=== PATIENT | female | born 1940 | race Caucasian/White ===

== ENCOUNTER 2020-06-16 06:20 | Outpatient (REF) | payer MEDICARE, SELFPAY ==
--- NOTE | 2020-06-16 06:49 | XR_ITS ---
EXAMINATION: CHEST AND RIGHT RIBS. CLINICAL INFORMATION: Chest pain. Right rib pain. COMPARISON: Chest 08/28/2014 TECHNIQUE: Chest 2 views. Right RIBS 3 views. FINDINGS: Chest: Both lungs are fairly well-expanded with platelike atelectasis left midlung. Rest of the lungs are clear. The heart size and pulmonary vascularity is normal. No gross bony abnormality seen. There is right rotator cuff postsurgical changes. XR/XR ribs RT 2V IMPRESSION: Platelike atelectasis left midlung.
--- NOTE | 2020-06-16 06:49 | XR_ITS ---
EXAMINATION: CHEST AND RIGHT RIBS. CLINICAL INFORMATION: Chest pain. Right rib pain. COMPARISON: Chest 08/28/2014 TECHNIQUE: Chest 2 views. Right RIBS 3 views. FINDINGS: Chest: Both lungs are fairly well-expanded with platelike atelectasis left midlung. Rest of the lungs are clear. The heart size and pulmonary vascularity is normal. No gross bony abnormality seen. There is right rotator cuff postsurgical changes. XR/XR chest 2V IMPRESSION: Platelike atelectasis left midlung.
[2020-06-16 07:10] LABS: Basophils Absolute Auto 0.1 X10*3/uL (0.0-0.2); Basophils Percent Auto 0.8 % (0-2); Eosinophils Absolute Auto 0.2 X10*3/uL (0.0-0.4); Eosinophils Percent Auto 2.5 % (0-4); Hematocrit 39.2 % (37-47); Hemoglobin 12.5 g/dl (12.0-16.0); Imm Gran Abs Auto 0.01 X10*3/uL (0.00-0.03); Imm Gran Pct Auto 0.1 % (0.0-0.4); Lymphocytes Absolute Auto 2.8 X10*3/uL (1.2-4.9); Lymphocytes Percent Auto 34.6 % (20-40); Mean Corpuscular HGB Conc 31.9 g/dl (31.0-35.0); Mean Corpuscular Hemoglobin 31.2 pg (27.0-33.0); Mean Corpuscular Volume 97.8 fL (80-98); Mean Platelet Volume 11.6 fL (9.4-12.3); Monocytes Absolute Auto 0.7 X10*3/uL (0.1-1.2); Monocytes Percent Auto 8.6 % (2-11); Neutrophils Absolute Auto 4.3 X10*3/uL (2.0-8.3); Neutrophils Percent Auto 53.4 % (45-73); Platelet Count 235 X10*3/uL (160-400); Red Blood Count 4.01 X10*6/uL (4.20-5.50); Red Cell Distribution Width 12.2 % (11.0-16.0)
[2020-06-16 07:13] LABS: MANUAL DIFF FLAG NO
[2020-06-16 07:33] LABS: Alanine Aminotransferase 20 U/L (0-31); Albumin Level 4.3 g/dL (3.5-5.0); Alkaline Phosphatase 61 U/L (39-117); Anion Gap 12 (12-20); Aspartate Amino Transferase 21 U/L (5-31); Bilirubin Total 0.7 mg/dL (0.0-1.0); Blood Urea Nitrogen 23 mg/dL (9-16); Calcium 9.2 mg/dL (8.4-10.2); Carbon Dioxide 30 mmol/L (22-29); Chloride 106 mmol/L (96-108); Cholesterol 190 mg/dL; Estimated Glomerular Filt Rate 56; Glucose Fasting 94 mg/dL (60-99); HDL Cholesterol 70 mg/dL; LDL Cholesterol Calculated 96 mg/dl; Potassium 4.8 mmol/l (3.3-5.1); Sodium 143 mmol/L (135-145); Total Protein 7.1 g/dL (6.5-8.0); Triglycerides 120 mg/dL
[2020-06-16 07:57] LABS: Thyroid Stimulating Hormone 1.29 uIU/mL (0.32-4.0)
== END 2020-06-16 06:21 | disposition home or self-care (01) ==
LOC: HO.XRAY 06:20
PROVIDERS: Visit Provider Internal Medicine
DX: R10.9 Unspecified abdominal pain (principal)
CPT/HCPCS: 36415; 71046; 71100; 80053; 80061; 84443; 85025

== ENCOUNTER → 2020-07-03 12:58 | Outpatient (BNVA) | payer MEDICARE, SELFPAY | PROVIDERS: PCP Family Medicine; Visit Provider Internal Medicine Cardiovascular Disease | DX: R06.02 Shortness of breath (principal); I48.0 Paroxysmal atrial fibrillation; I35.0 Nonrheumatic aortic (valve) stenosis | CPT/HCPCS: 93005; 99212 ==

== ENCOUNTER → 2020-08-06 09:24 | Outpatient (REF) | payer MEDICARE, SELFPAY ==
--- NOTE | 2020-08-06 09:27 | CA_ITS ---
Transthoracic Echocardiogram Patient (Last, First, Middle): Mandy Ayala T Gender: Female Date of : 1940 Age: 80 Procedure Date: 08/06/2020 Procedure Type: Transthoracic Echocardiogram Location: OP Height: 160.02 cm Weight: 79.38 kg BSA: 1.83 m2 Heart Rate: bpm BP: 130 / 80 mmHg District Gauger: ANA MARIA Referring MD: Glen Jewell MD Symptoms: R06.02 - Shortness of breath Study Quality: Fair ECG Rhythm: Sinus Conclusions: - The left ventricular systolic function is normal. The visually estimated ejection fraction is between 65-70%. - There is moderate aortic valve stenosis. - There is mild mitral annular calcification. Findings Left Ventricle Normal left ventricular cavity size. There is mildly increased left ventricular wall thickness. The left ventricular systolic function is normal. The visually estimated ejection fraction is between 65-70%. There is no evidence of regional wall motion abnormalities. Diastolic function is indeterminate on the basis of available data. E/E prime ratio is >15, consistent with elevated filling pressures. Right Ventricle Normal right ventricular cavity size and systolic function. Atria Both atria are normal in size. Aortic Valve There is moderate calcification of the aortic valve. There is moderate aortic valve stenosis. The peak aortic velocity is 3.68 m/s with a calculated peak gradient of 54 mmHg. The mean gradient is 29 mmHg. The aortic valve area is 1.03 cm2. There is mild aortic valve regurgitation. Mitral Valve There is mild mitral annular calcification. There is trace mitral valve regurgitation. There is no mitral valve stenosis. Pulmonic Valve The pulmonic valve was not well visualized. Tricuspid Valve There is mild tricuspid valve regurgitation. The pulmonary artery systolic pressure is normal. Great Vessels The aortic annulus, sinuses of valsalva, asc aorta, and aortic arch are normal in size. Venous The inferior vena cava is normal in size and collapses greater than 50% with inspiration. Pericardium/Pleural There is no evidence of pericardial effusion. Prior Study Comparison No significant change compared to prior study dated: 12/20/2019. Measurements 2D Linear Measurements IVSd: 1.05 0.6-0.9/0.6-1.0 cm LVIDd: 3.53 3.9-5.3/4.2-5.9 cm LVIDd Index: 1.93 2.4-3.2/2.2-3.1 cm/m2 LVIDs: 2.26 2.0-3.6 cm LVPWd: 1.02 0.7-1.1 cm Ao Root: 2.50 2.1-3.5 cm LA Diam: 2.80 2.7-3.8/3.0-4.0 cm LAIDs Index: 1.53 1.5-2.3 cm/m2 LV Mass: 136.89 67-162/88-224 g LV Mass Index: 74.81 43-95/49-115 g/m2 LVOT Diam: 2.00 3.0+(-)1.3 cm 2D Systolic Function EF 4C: 69.30 >55% EF 2C: 68.30 >55% EF BiP: 68.90 >55% Mitral Valve MV Pk E: 1.31 MV PK A: 0.96 MV Decel Time: 275.00 E/A: 1.40 E'Lateral: 8.32 E'Medial: 7.83 E/E' Med: 16.70 E/E' Lat: 15.70 PHT: 80.00 MVA PHT: 2.75 Decel [place]: 4.77 Aortic Valve AoV Pk Jorge: 3.68 AoV Mn Jorge: 2.52 AoV VTI: 0.89 AoV Pk Grad: 54.00 Aov Mn Grad: 29.00 NABIL Cont.VTI: 1.03 AI Pk Jorge: 4.23 AI [place]: 2.46 LVOT LVOT Pk Jorge: 1.09 LVOT Mn Jorge: 0.75 LVOT VTI: 0.29 LVOT Pk Grad: 5.00 LVOT Mn Grad: 3.00 LVOT Diam: 2.00 LVOT Area: 3.14 Diastolic Function MV Pk E: 1.31 MV Pk A: 0.96 E/A: 1.40 E'Medial: 7.83 E/E' Med: 16.70 E' Laterial: 8.32 E/E' Lat: 15.70 Tricuspid Valve TR Pk Jorge: 2.61 TR Pk Grad: 27.00 RA Press: 3.00 RVSP: 30.00 Great Vessels Aorta Ao Root-2D: 2.50 2.0-3.7 cm Ao Asc: 2.90 2.1-3.4 cm Ao Arch: 2.30 Updated in Other Vendor System with Status of Final Mahamed Locke MD electronically signed on 08/08/2020 2:01:44 PM with status of Final
== END ==
LOC: HO.CARD 09:24
PROVIDERS: Visit Provider Internal Medicine Cardiovascular Disease
DX: R06.02 Shortness of breath (principal); I48.0 Paroxysmal atrial fibrillation; I35.0 Nonrheumatic aortic (valve) stenosis
CPT/HCPCS: 93306

== ENCOUNTER → 2020-08-14 09:45 | Outpatient (BNVA) | payer MEDICARE, SELFPAY | PROVIDERS: PCP Family Medicine; Visit Provider Internal Medicine Cardiovascular Disease | DX: Z13.89 Encounter for screening for other disorder (principal) | CPT/HCPCS: Q3014 ==

== ENCOUNTER 2020-08-28 11:21 | Outpatient (REF) | payer MEDICARE, SELFPAY ==
--- NOTE | ~2020-08-28 | MM_ITS ---
EXAMINATION: MM SCREENING DIGITAL BREAST TOMOSYNTHESIS, BILATERAL CLINICAL INFORMATION: Screening. Asymptomatic. The lifetime risk of breast cancer based on the Tyrer-Cuzick Model is 1.1%. COMPARISON: Mammography: 11/15/2017 and studies dating back to 09/02/2008. TECHNIQUE: Digital breast tomosynthesis is performed in both the craniocaudal and mediolateral oblique views along with computer-aided detection (CAD). Synthesized 2D images are generated from the tomosynthesis. FINDINGS: There are scattered areas of fibroglandular density (ACR BI-RADS breast composition Category b). No new abnormal dominant mass identified. Within the superior and central aspects of the left breast there are regions of increasing calcifications which are loosely grouped without linear or branching forms. Recommend spot magnification views in 90 degree mediolateral and craniocaudal projections. MM/MM tomosynthesis screening BI IMPRESSION: Increasing calcifications about the superior and central aspects of the left breast for further evaluation as described. ASSESSMENT: BI-RADS 0: Incomplete - Need Additional Imaging Evaluation RECOMMENDATION: 1. Additional views of the left breast. 2. Targeted ultrasound if warranted after review of the additional views. 3. Radiology department staff will contact the patient for additional imaging. This patient's information was entered into a reminder system with a target due date for their next mammogram.
== END 2020-08-28 11:22 | disposition home or self-care (01) ==
LOC: HO.MAMMO 11:21
PROVIDERS: Visit Provider Internal Medicine
DX: Z12.31 Encounter for screening mammogram for malignant neoplasm of breast (principal)
CPT/HCPCS: 77063; 77067

== ENCOUNTER 2020-09-15 13:20 | Outpatient (REF) | payer MEDICARE, SELFPAY ==
--- NOTE | ~2020-09-15 | MM_ITS ---
EXAMINATION: MM DIAGNOSTIC DIGITAL MAMMOGRAPHY, LEFT CLINICAL INFORMATION: Recall from screening for loosely grouped regional calcifications central and upper left breast COMPARISON: Mammography: 08/28/2020, 11/15/2017 TECHNIQUE: Digital mammography is performed in the following views: Magnification left CC, magnification left ML FINDINGS: There are scattered areas of fibroglandular density (ACR BI-RADS breast composition Category b). The additional views show increased regional calcifications central and upper left breast, without focal grouping or ductal distribution on the ML view. Recent screening mammography shows bilateral breast calcifications of similar appearance. Although calcifications are increased from prior exam 2018, it is uncertain whether these are otherwise long-standing or more recent. Discussion with the patient reveals no other mammograms since 2018. Management plan is for short interval left breast diagnostic mammography in 6 months to include magnification views. MM/MM added views LT IMPRESSION: Increased regional calcifications central and upper left breast since prior mammography 2018. Chronicity otherwise unknown. Similar appearing calcifications on the right without change on recent screening mammography. ASSESSMENT: BI-RADS 3: Probably Benign RECOMMENDATION: Diagnostic left mammography in 6 months to include magnification views. This patient's information was entered into a reminder system with a target due date for their next mammogram.
== END 2020-09-15 13:21 | disposition home or self-care (01) ==
LOC: HO.MAMMO 13:20
PROVIDERS: Visit Provider Internal Medicine
DX: R92.1 Mammographic calcification found on diagnostic imaging of breast (principal)
CPT/HCPCS: 77065

== ENCOUNTER 2020-10-27 11:00 | Outpatient (RCR) | payer MEDICARE, SELFPAY | END 2020-10-31 14:34 | disposition other institution (70) | LOC: HO.PT 11:00 | PROVIDERS: PCP Internal Medicine; Visit Provider Internal Medicine | DX: M77.8 Other enthesopathies, not elsewhere classified (principal) | CPT/HCPCS: 97110; 97140; 97161 ==

== ENCOUNTER 2020-12-10 15:26 | Outpatient (REF) | payer MEDICARE, SELFPAY ==
--- NOTE | ~2020-12-10 | CT_ITS ---
EXAMINATION: CT HEAD WITHOUT CONTRAST CLINICAL INFORMATION: Fall, trauma COMPARISON: None TECHNIQUE: Contiguous axial imaging was performed from the skull base to vertex without intravenous administration of contrast. Additional 2-D coronal and sagittal reformatted images are generated on the CT workstation and uploaded to PACS. This CT examination was performed using dose optimization techniques as appropriate, variously including the following: *Automated exposure control *Adjustment of mA and/or kV according to patient size (this includes techniques or standardized protocols for targeted exams where dose is matched to indication/reason for exam; i.e. extremities or head) *Use of iterative reconstruction technique DLP: 738 mGy-cm FINDINGS: There is no intracranial hemorrhage, hematoma, or extra-axial fluid collection. There are mild atrophic changes with mild prominence of the ventricles and cortical sulci and fissures and asymmetric fashion. There is no superimposed hydrocephalus. There is moderate bilateral periventricular white matter gliosis likely related to chronic small vessel ischemic changes there is no mass effect or edema. No midline shift. There is no visible acute territorial infarct or mass lesion. The calvarium appears intact. There is no pneumocephalus or orbital emphysema. The visualized sinuses and middle ears and mastoid air cells show no significant mucosal thickening. There are no air-fluid levels. CT/CT head/brain wo con IMPRESSION: 1. No intracranial hemorrhage or hematoma. 2. Atrophic changes with moderate periventricular white matter gliosis likely chronic small vessel ischemic changes. No mass effect or edema.
== END 2020-12-10 15:27 | disposition home or self-care (01) ==
LOC: HO.CT 15:26
PROVIDERS: PCP Internal Medicine; Visit Provider Internal Medicine
DX: Z91.81 History of falling (principal)
CPT/HCPCS: 70450

== ENCOUNTER 2021-03-04 11:05 | Outpatient (REF) | payer MEDICARE, SELFPAY ==
[2021-03-04 14:01] LABS: Anion Gap 16 (12-20); Blood Urea Nitrogen 24 mg/dL (9-16); Calcium 9.7 mg/dL (8.4-10.2); Carbon Dioxide 25 mmol/L (22-29); Chloride 108 mmol/L (96-108); Estimated Glomerular Filt Rate 52; Glucose Random 101 mg/dL (60-115); Potassium 4.7 mmol/L (3.3-5.1); Sodium 144 mmol/L (135-145)
[2021-03-04 14:04] LABS: B Type Natriuretic Peptide 114 pg/mL (<100)
== END 2021-03-04 11:06 | disposition home or self-care (01) ==
LOC: HO.LAB 11:05
PROVIDERS: PCP Internal Medicine; Visit Provider Internal Medicine Cardiovascular Disease
DX: R06.02 Shortness of breath (principal); I48.0 Paroxysmal atrial fibrillation; I35.0 Nonrheumatic aortic (valve) stenosis; Z79.01 Long term (current) use of anticoagulants; Z79.899 Other long term (current) drug therapy
CPT/HCPCS: 36415; 80048; 83880; 99212

== ENCOUNTER 2021-03-18 12:51 | Outpatient (REF) | payer MEDICARE, SELFPAY ==
--- NOTE | ~2021-03-18 | MM_ITS ---
EXAMINATION: MM DIAGNOSTIC DIGITAL BREAST TOMOSYNTHESIS, LEFT CLINICAL INFORMATION: Six-month follow up calcifications. The lifetime risk of breast cancer based on the Tyrer-Cuzick Model is 1.3%. COMPARISON: Mammography: 09/15/2020 and studies dating back to 01/12/2013. TECHNIQUE: Digital breast tomosynthesis was performed in both the craniocaudal and mediolateral oblique views along with computer-aided detection (CAD). Synthesized 2D images were generated from the tomosynthesis. Spot magnification views in craniocaudal and 90 degree mediolateral views were also performed. FINDINGS: There are scattered areas of fibroglandular density (ACR BI-RADS breast composition Category b). There is stability of 2 groupings of calcifications within the central and upper left breast. No new abnormal mass or grouping of microcalcifications identified. Recommend 6-month follow up bilateral mammography with diagnostic left breast study consisting of additional spot magnification views in craniocaudal and 90 degree mediolateral views. Results were provided to the patient at time of visit by the technologist. MM/MM tomosynthesis diagnostic LT IMPRESSION: There are no significant changes from prior study. ASSESSMENT: BI-RADS 3: Probably Benign. RECOMMENDATION: Diagnostic mammography in 6 months. This patient's information was entered into a reminder system with a target due date for their next mammogram.
== END 2021-03-18 12:52 | disposition home or self-care (01) ==
LOC: HO.MAMMO 12:51
PROVIDERS: Visit Provider Internal Medicine
DX: R92.1 Mammographic calcification found on diagnostic imaging of breast (principal)
CPT/HCPCS: 77061; 77065

== ENCOUNTER 2021-03-23 10:25 | Outpatient (REF) | payer MEDICARE, SELFPAY ==
--- NOTE | ~2021-03-23 | US_ITS ---
EXAMINATION: US THYROID CLINICAL INFORMATION: Multinodular goiter. COMPARISON: Thyroid ultrasound 02/08/2019 and 01/26/2017. Ultrasound-guided thyroid biopsy 01/15/2016. TECHNIQUE: Linear transducer grayscale and color Doppler examination with attention to the region of the thyroid. FINDINGS: SIZE: Measurements of the thyroid lobes and nodules are given in sagittal, anteroposterior and transverse dimensions respectively. Right Thyroid Lobe: 3.9 x 0.8 x 0.8 cm, volume 1.4 mL. Left Thyroid Lobe: 4.1 x 1.7 x 1.8 cm, volume 5.9 mL. Isthmus: 0.5 cm in maximum AP dimension. THYROID PARENCHYMA AND NODULES: Again noted are several nodules of the thyroid gland which otherwise has normal echotexture and normal vascularity. Total number of nodules greater than or equal to 1 cm: 2. Brush Or Broom Cutter nodules are described as follows: 0.4 x 0.3 x 0.3 cm solid, hypoechoic, smoothly marginated, noncalcified nodule is present in the right lateral interpolar area. This nodule is unchanged in size compared to 02/08/2019. ACR TI-RADS score of 4 points, TR4. 0.7 x 0.3 x 0.5 cm mixed cystic and solid smoothly marginated nodule in the right interpolar area is without calcification. The solid component is predominantly isoechoic. This nodule measured approximately 0.5 x 0.3 x 0.3 cm on 02/08/2019. ACR TI-RADS score of 2 points, TR2. 0.9 x 0.5 x 0.8 cm heterogeneous, predominantly solid, predominantly isoechoic smoothly marginated, noncalcified nodule of the right lower pole previously measured 0.7 x 0.4 x 0.7 cm on 02/08/2019. ACR TI-RADS score of 3 points, TR3. 1.7 x 1.3 x 1.6 cm mixed cystic and solid, smoothly marginated nodule of the mid left lobe is without calcification. The solid component is isoechoic. ACR TI-RADS score of 2 points, TR2. 2.9 x 1.8 x 1.8 cm heterogeneous, smoothly marginated nodule of the left mid to lower pole is predominantly solid but has scattered small cystic components. The solid component is heterogeneous, [id number]. The nodule measured approximately 2.8 x 1.4 x 2.1 cm on 02/08/2019 and underwent ultrasound-guided FNA on 01/15/2016. This nodule has a maximum dimension of 2.8 cm on 10/13/2015. ACR TI-RADS score of 4 points, TR4. NODES: No lymphadenopathy is seen in the tissue surrounding the thyroid gland. US/US thyroid IMPRESSION: Multinodular thyroid gland. The largest nodule in the left lobe has not significantly changed in size compared to 10/13/2015. This nodule has previously undergone ultrasound-guided FNA. Since stability has been demonstrated over many years, no additional specific recommendations are given for this nodule. There are no new nodules that require recommendations for ultrasound-guided FNA. Ultimately, decisions regarding whether or not to perform ultrasound follow-up or FNA should account for referring physician preference, patient risk factors for thyroid cancer, patient age, comorbidities, life expectancy and any other relevant considerations.
== END 2021-03-23 10:26 | disposition home or self-care (01) ==
LOC: HO.US 10:25
PROVIDERS: PCP Internal Medicine; Visit Provider Internal Medicine Endocrinology, Diabetes & Metabolism
DX: E04.2 Nontoxic multinodular goiter (principal); K31.89 Other diseases of stomach and duodenum; K21.9 Gastro-esophageal reflux disease without esophagitis
CPT/HCPCS: 76536

== ENCOUNTER → 2021-03-25 08:19 | Outpatient (REF) | payer MEDICARE, SELFPAY ==
--- NOTE | ~2021-03-25 | NM_ITS ---
Myocardial perfusion study Indication: Shortness of breath evaluate for myocardial ischemia Technique: The patient was brought in for a Lexiscan perfusion study on 03/25/2021. Patient performed low-level exercise and was injected 0.4 mg of Lexiscan intravenously. Within a minute of injection, 30 mCi of sestamibi was given intravenously. Images were obtained using the SPECT gamma camera interlaced with the gating device. Images were obtained in supine position. Resting perfusion study was performed on 03/26/2021. Patient was administered 30 mCi of sestamibi intravenously at rest. Images were then obtained in supine position. Images obtained with and without CT attenuation. Total DLP 107 mGy-cm. Images were processed with the software and compared side to side in short axis, horizontal long axis and vertical long axis views. Findings: The stress perfusion study showed nonattenuated images show normal uptake of radiotracer in all segments of LV myocardium. Attenuation corrected images show minimally reduced uptake in the apex of the LV myocardium. There is suggestion of left ventricle hypertrophy. The gated study shows normal LV systolic function with calculated LVEF of greater than 70 %. LV cavity is normal in size. The gated study shows normal systolic wall thickening and contraction of segments. Resting study shows no change in perfusion pattern compared to stress perfusion study. Gating at rest reveals normal systolic wall motion with ejection fraction at 69%. The findings are consistent with normal myocardial perfusion. NM/NM earlene perf SPECT rest & str Impression: 1. Myocardial perfusion imaging study shows normal myocardial perfusion 2. Gated LVEF is 69% 3. Transient ischemic dilatation not present EKG is nondiagnostic for ischemia
--- NOTE | 2021-03-25 08:22 | CA_ITS ---
Transthoracic Echocardiogram Patient (Last, First, Middle): Mandy Ayala T Gender: Female Date of : 1940 Age: 81 Procedure Date: 03/25/2021 Procedure Type: Transthoracic Echocardiogram Location: OP Height: 160.02 cm Weight: 79.38 kg BSA: 1.83 m2 Heart Rate: bpm BP: 152 / 69 mmHg Pig Furnace Operator: DSMichelle Referring MD: Glen Jewell MD Symptoms: I35.0 - Nonrheumatic aortic (valve) stenosis Study Quality: Fair ECG Rhythm: Sinus Conclusions: - The left ventricular systolic function is normal. The calculated ejection fraction is 67% by biplane method. - E/E prime ratio is >15, consistent with elevated filling pressures. Evidence suggests grade I (mild) diastolic dysfunction. - There is moderate to severe aortic valve stenosis. - There is mild mitral annular calcification. Findings Left Ventricle Normal left ventricular cavity size. There is normal left ventricular wall thickness. The left ventricular systolic function is normal. The calculated ejection fraction is 67% by biplane method. There is no evidence of regional wall motion abnormalities. E/E prime ratio is >15, consistent with elevated filling pressures. Evidence suggests grade I (mild) diastolic dysfunction. Right Ventricle Normal right ventricular cavity size and systolic function. Atria The left atrium is normal in size. The right atrium is normal in size. Aortic Valve There is moderate calcification of the aortic valve. There is moderate to severe aortic valve stenosis. The peak aortic velocity is 3.59 m/s with a calculated peak gradient of 51 mmHg. The mean gradient is 28 mmHg. The aortic valve area is 0.85 cm2. There is trace (trivial) aortic valve regurgitation. Dimensionless index 0.34. Mitral Valve There is mild mitral annular calcification. There is trace mitral valve regurgitation. There is no mitral valve stenosis. Pulmonic Valve The pulmonic valve was not well visualized. Tricuspid Valve There is trace tricuspid valve regurgitation. The pulmonary artery systolic pressure is normal. Great Vessels The aortic annulus, sinuses of valsalva, and asc aorta are normal in size. Venous The inferior vena cava is normal in size and collapses greater than 50% with inspiration. Pericardium/Pleural There is no evidence of pericardial effusion. Prior Study Comparison No significant change compared to prior study dated: 08/06/2020. Aortic valve area appears slightly smaller than before, but the measured LVOT diameter in the current study is lower than previous study as well. This might account for the difference. Measurements 2D Linear Measurements IVSd: 0.92 0.6-0.9/0.6-1.0 cm LVIDd: 3.53 3.9-5.3/4.2-5.9 cm LVIDd Index: 1.93 2.4-3.2/2.2-3.1 cm/m2 LVIDs: 2.85 2.0-3.6 cm LVPWd: 0.89 0.7-1.1 cm Ao Root: 2.20 2.1-3.5 cm LA Diam: 1.90 2.7-3.8/3.0-4.0 cm LAIDs Index: 1.04 1.5-2.3 cm/m2 LV Mass: 112.26 67-162/88-224 g LV Mass Index: 61.35 43-95/49-115 g/m2 LVOT Diam: 1.80 3.0+(-)1.3 cm 2D Systolic Function EF 4C: 60.20 >55% EF 2C: 74.30 >55% EF BiP: 67.00 >55% Mitral Valve MV Pk E: 1.18 MV PK A: 1.27 MV Decel Time: 186.00 E/A: 0.90 E'Lateral: 5.98 E'Medial: 8.70 E/E' Med: 13.60 E/E' Lat: 19.70 PHT: 54.00 MVA PHT: 4.07 Decel Ross: 6.36 Aortic Valve AoV Pk Jorge: 3.59 AoV Mn Jorge: 2.38 AoV VTI: 96.00 AoV Pk Grad: 51.00 Aov Mn Grad: 28.00 NABIL Cont.VTI: 0.85 AI Pk Jorge: 3.54 AI Ross: 0.83 LVOT LVOT Pk Jorge: 1.15 LVOT Mn Jorge: 0.81 LVOT VTI: 0.30 LVOT Pk Grad: 5.00 LVOT Mn Grad: 3.00 LVOT Diam: 1.80 LVOT Area: 2.54 Diastolic Function MV Pk E: 1.18 MV Pk A: 1.27 E/A: 0.90 E'Medial: 8.70 E/E' Med: 13.60 E' Laterial: 5.98 E/E' Lat: 19.70 Right Ventricle TAPSE (mm): 1.87 Tricuspid Valve TR Pk Jorge: 2.46 TR Pk Grad: 24.00 RA Press: 3.00 RVSP: 27.00 Great Vessels Aorta Ao Root-2D: 2.20 2.0-3.7 cm Ao Asc: 2.70 2.1-3.4 cm Updated in Other Vendor System with Status of Final Mahamed Locke MD electronically signed on 03/27/2021 12:00:56 PM with status of Final
--- NOTE | 2021-03-25 08:22 | CA_ITS ---
Acquisition Time: 2021-03-25 09:32:09 Total Exercise Time: 00:02:00 Test Indications: Dyspnea Medications: APIXABAN LISINOPRIL METOPROLOL PREDNISONE ROSUVASTATIN Protocol: LEXISCAN Max HR: 099 BPM 71% of Pred: 138 BPM Max BP: 164/070 mmHG Max Work Load: 1.0 METS Pharmacological stress test with Lexiscan injection, while sitting and kicking her legs without anginal symptoms, with isolated PACs, atrial bigeminy, with normotensive response to exercise, with nondiagnostic EKG for ischemia. In recovery she reported lightheadedness that was treated with Aminophylline 75mg IVP to reverse Lexiscan with resolution of symptom. Nuclear images pending. Test reviewed with Dr Locke. Referred By: Glen Jewell Overread By: DOTTIE SALAS
== END ==
LOC: HO.CARD 08:19
PROVIDERS: Visit Provider Internal Medicine Cardiovascular Disease
DX: I35.0 Nonrheumatic aortic (valve) stenosis (principal); R06.02 Shortness of breath
CPT/HCPCS: 78452; 93017; 93306; A9500; J0280; J2785

== ENCOUNTER 2021-04-07 13:51 | Outpatient (REF) | payer MEDICARE, SELFPAY ==
[2021-04-07 14:57] LABS: Hematocrit 39.5 % (37.0-47.0); Hemoglobin 12.9 g/dl (12.0-16.0); Mean Corpuscular HGB Conc 32.7 g/dl (31.0-35.0); Mean Corpuscular Hemoglobin 31.9 pg (27.0-33.0); Mean Corpuscular Volume 97.5 fL (80.0-98.0); Mean Platelet Volume 11.2 fL (9.4-12.3); Platelet Count 207 X10*3/uL (160-400); Red Blood Count 4.05 X10*6/uL (4.20-5.50); White Blood Count 9.7 X10*3/uL (4.8-10.8)
[2021-04-07 15:02] LABS: INTERNATIONAL NORM RATIO 1.5 (0.9-1.1)
[2021-04-07 15:19] LABS: Anion Gap 14 (12-20); Blood Urea Nitrogen 27 mg/dL (9-16); Calcium 9.3 mg/dL (8.4-10.2); Carbon Dioxide 29 mmol/L (22-29); Chloride 104 mmol/L (96-108); Estimated Glomerular Filt Rate 45; Glucose Random 111 mg/dL (60-115); Potassium 4.8 mmol/L (3.3-5.1); Sodium 142 mmol/L (135-145)
[2021-04-07 15:26] LABS: B Type Natriuretic Peptide 84 pg/mL (<100)
== END 2021-04-07 13:52 | disposition home or self-care (01) ==
LOC: HO.LAB 13:51
PROVIDERS: PCP Internal Medicine; Referring Provider Internal Medicine; Visit Provider Internal Medicine Cardiovascular Disease
DX: R06.02 Shortness of breath (principal); I35.0 Nonrheumatic aortic (valve) stenosis; I48.0 Paroxysmal atrial fibrillation; Z79.899 Other long term (current) drug therapy
CPT/HCPCS: 36415; 80048; 83880; 85027; 85610; 99212

== ENCOUNTER → 2021-05-15 12:44 | Outpatient (BNVA) | payer MEDICARE, SELFPAY | PROVIDERS: PCP Internal Medicine; Referring Provider Internal Medicine; Visit Provider Nurse Practitioner Family | DX: I35.0 Nonrheumatic aortic (valve) stenosis (principal); I48.0 Paroxysmal atrial fibrillation; I10 Essential (primary) hypertension; R06.02 Shortness of breath; Z98.890 Other specified postprocedural states | CPT/HCPCS: 93005; 99212 ==

== ENCOUNTER → 2021-07-28 13:16 | Outpatient (BNVA) | payer MEDICARE, SELFPAY | PROVIDERS: PCP Internal Medicine; Referring Provider Internal Medicine; Visit Provider Internal Medicine Cardiovascular Disease | DX: I35.0 Nonrheumatic aortic (valve) stenosis (principal); I48.0 Paroxysmal atrial fibrillation | CPT/HCPCS: 99212 ==

== ENCOUNTER → 2021-10-01 08:24 | Outpatient (REF) | payer MEDICARE, SELFPAY ==
--- NOTE | 2021-10-01 08:27 | CA_ITS ---
Transthoracic Echocardiogram Patient (Last, First, Middle): Mandy Ayala T Gender: Female Date of : 1940 Age: 81 Procedure Date: 10/01/2021 Procedure Type: Transthoracic Echocardiogram Location: OP Height: 160.02 cm Weight: 79.38 kg BSA: 1.83 m2 Heart Rate: bpm BP: 118 / 64 mmHg Resource Room Special Education Teacher: SB Referring MD: Glen Jewell MD Symptoms: Z95.3 - Presence of xenogenic heart valve Study Quality: Fair ECG Rhythm: Sinus Conclusions: - The left ventricular systolic function is normal. The calculated ejection fraction is 69% by biplane method. - Evidence suggests grade II (moderate) diastolic dysfunction. - A bioprosthetic aortic valve is present. The prosthetic aortic valve appears to be functioning normally. Findings Left Ventricle Normal left ventricular cavity size. There is normal left ventricular wall thickness. The left ventricular systolic function is normal. The calculated ejection fraction is 69% by biplane method. There is no evidence of regional wall motion abnormalities. E/E prime ratio is >15, consistent with elevated filling pressures. Evidence suggests grade II (moderate) diastolic dysfunction. LV peak GLs -17.1%. Right Ventricle Mildly increased right ventricular cavity size. There is normal right ventricular systolic function. Atria Both atria are normal in size. Aortic Valve A bioprosthetic aortic valve is present. The prosthetic aortic valve appears to be functioning normally. The mean gradient is 12 mmHg. There is no aortic valve regurgitation. Acceleration time 88 milliseconds. Mitral Valve There is mild mitral annular calcification. There is trace mitral valve regurgitation. There is no mitral valve stenosis. Pulmonic Valve The pulmonic valve was not well visualized. Tricuspid Valve The tricuspid valve was not well visualized. There is mild tricuspid valve regurgitation. The pulmonary artery systolic pressure is normal. Great Vessels The asc aorta is normal in size. Venous The inferior vena cava is normal in size and collapses greater than 50% with inspiration. Pericardium/Pleural There is no evidence of pericardial effusion. Prior Study Comparison Changes noted compared to prior study dated: 03/25/2021. s/p AVR. Measurements 2D Linear Measurements IVSd: 0.65 0.6-0.9/0.6-1.0 cm LVIDd: 3.69 3.9-5.3/4.2-5.9 cm LVIDd Index: 2.02 2.4-3.2/2.2-3.1 cm/m2 LVIDs: 2.69 2.0-3.6 cm LVPWd: 0.64 0.7-1.1 cm LA Diam: 2.90 2.7-3.8/3.0-4.0 cm LAIDs Index: 1.58 1.5-2.3 cm/m2 LV Mass: 75.50 67-162/88-224 g LV Mass Index: 41.26 43-95/49-115 g/m2 LVOT Diam: 1.90 3.0+(-)1.3 cm 2D Systolic Function EF 4C: 66.40 >55% EF 2C: 70.80 >55% EF BiP: 69.20 >55% Mitral Valve MV Pk E: 1.38 MV PK A: 1.30 MV Decel Time: 272.00 E/A: 1.10 E'Lateral: 4.90 E'Medial: 5.44 E/E' Med: 25.40 E/E' Lat: 28.20 PHT: 80.00 MVA PHT: 2.75 Decel [place]: 5.06 Aortic Valve AoV Pk Jorge: 2.37 AoV Mn Jorge: 1.62 AoV VTI: 0.51 AoV Pk Grad: 22.00 Aov Mn Grad: 12.00 NABIL Cont.VTI: 1.39 LVOT LVOT Pk Jorge: 1.06 LVOT Mn Jorge: 0.79 LVOT VTI: 0.25 LVOT Pk Grad: 4.00 LVOT Mn Grad: 3.00 LVOT Diam: 1.90 LVOT Area: 2.84 Diastolic Function MV Pk E: 1.38 MV Pk A: 1.30 E/A: 1.10 E'Medial: 5.44 E/E' Med: 25.40 E' Laterial: 4.90 E/E' Lat: 28.20 Right Ventricle TAPSE (mm): 27.20 TVS' Jorge: 20.70 Tricuspid Valve TR Pk Jorge: 2.38 TR Pk Grad: 23.00 RA Press: 3.00 RVSP: 26.00 Great Vessels Aorta Ao Asc: 2.60 2.1-3.4 cm Pulmonary Veins Pulm Vein S/D 3.10 Pulmonary Valve PV Pk Jorge: 0.83 Peak PV Grad: 3.00 Updated in Other Vendor System with Status of Final Mahamed Locke MD electronically signed on 10/03/2021 12:47:26 PM with status of Final
== END ==
LOC: HO.CARD 08:24
PROVIDERS: PCP Internal Medicine; Visit Provider Internal Medicine Cardiovascular Disease
DX: Z95.3 Presence of xenogenic heart valve (principal)
CPT/HCPCS: 93306; 93356

== ENCOUNTER → 2021-10-06 12:27 | Outpatient (BNVA) | payer MEDICARE, SELFPAY | PROVIDERS: PCP Internal Medicine; Referring Provider Internal Medicine; Visit Provider Internal Medicine Cardiovascular Disease | DX: I48.0 Paroxysmal atrial fibrillation (principal); Z79.01 Long term (current) use of anticoagulants; Z95.3 Presence of xenogenic heart valve; Z45.018 Encounter for adjustment and management of other part of cardiac pacemaker | CPT/HCPCS: 93280; 99212 ==

== ENCOUNTER 2021-12-22 14:48 | Outpatient (REF) | payer MEDICARE, SELFPAY ==
[2021-12-15 06:48] VITALS: BP 134/60; BP 138/62; BP 140/66; BMI 31.4
[2021-12-22 15:44] LABS: Anion Gap 12 (12-20); Blood Urea Nitrogen 29 mg/dL (9-16); Calcium 9.3 mg/dL (8.4-10.2); Carbon Dioxide 32 mmol/L (22-29); Chloride 102 mmol/L (96-108); Estimated Glomerular Filt Rate 42; Glucose Random 107 mg/dL (60-115); Potassium 4.8 mmol/L (3.3-5.1); Sodium 141 mmol/L (135-145)
== END 2021-12-22 14:49 | disposition home or self-care (01) ==
LOC: HO.LAB 14:48
PROVIDERS: PCP Internal Medicine; Visit Provider Internal Medicine
DX: R60.9 Edema, unspecified (principal)
CPT/HCPCS: 36415; 80048

== ENCOUNTER 2022-01-11 12:02 | Outpatient (REF) | payer MEDICARE, SELFPAY ==
[2021-12-15 06:48] VITALS: BP 134/60; BP 138/62; BP 140/66; BMI 31.4
[2022-01-11 13:48] LABS: Anion Gap 14 (12-20); Blood Urea Nitrogen 23 mg/dL (9-16); Calcium 9.9 mg/dL (8.4-10.2); Carbon Dioxide 30 mmol/L (22-29); Chloride 103 mmol/L (96-108); Estimated Glomerular Filt Rate 45; Glucose Random 97 mg/dL (60-115); Potassium 4.2 mmol/L (3.3-5.1); Sodium 143 mmol/L (135-145)
== END 2022-01-11 12:03 | disposition home or self-care (01) ==
LOC: HO.LAB 12:02
PROVIDERS: PCP Internal Medicine; Visit Provider Internal Medicine
DX: R79.89 Other specified abnormal findings of blood chemistry (principal)
CPT/HCPCS: 36415; 80048

== ENCOUNTER 2022-03-13 08:21 | Outpatient (REF) | payer MEDICARE, SELFPAY ==
[2021-12-15 06:48] VITALS: BP 134/60; BP 138/62; BP 140/66; BMI 31.4
[2022-03-13 09:02] LABS: Anion Gap 13 (12-20); Blood Urea Nitrogen 26 mg/dL (9-16); Calcium 9.2 mg/dL (8.4-10.2); Carbon Dioxide 31 mmol/L (22-29); Chloride 101 mmol/L (96-108); Estimated Glomerular Filt Rate 44; Glucose Random 82 mg/dL (60-115); Potassium 4.1 mmol/L (3.3-5.1); Sodium 141 mmol/L (135-145)
[2022-03-13 09:44] LABS: Vitamin B12 342 pg/mL (200-900)
== END 2022-03-13 08:22 | disposition home or self-care (01) ==
LOC: HO.LAB 08:21
PROVIDERS: Visit Provider Internal Medicine
DX: R53.83 Other fatigue (principal)
CPT/HCPCS: 36415; 80048; 82607; 84443

== ENCOUNTER → 2022-04-22 13:21 | Outpatient (BNVA) | payer MEDICARE, SELFPAY ==
[2021-12-15 06:48] VITALS: BP 134/60; BP 138/62; BP 140/66; BMI 31.4
== END ==
PROVIDERS: PCP Internal Medicine; Referring Provider Internal Medicine; Visit Provider Internal Medicine Cardiovascular Disease
DX: Z45.018 Encounter for adjustment and management of other part of cardiac pacemaker (principal); I48.0 Paroxysmal atrial fibrillation; Z95.3 Presence of xenogenic heart valve
CPT/HCPCS: 93280; 99212

== ENCOUNTER 2022-08-26 06:46 | Outpatient (REF) | payer MEDICARE, SELFPAY ==
[2021-12-15 06:48] VITALS: BP 134/60; BP 138/62; BP 140/66; BMI 31.4
[2022-08-26 08:21] LABS: Anion Gap 17 (12-20); Blood Urea Nitrogen 22 mg/dL (9-16); Calcium 9.5 mg/dL (8.4-10.2); Carbon Dioxide 27 mmol/L (22-29); Chloride 103 mmol/L (96-108); Estimated Glomerular Filt Rate 43; Glucose Random 99 mg/dL (60-115); Potassium 4.5 mmol/L (3.3-5.1); Sodium 142 mmol/L (135-145)
== END 2022-08-26 06:47 | disposition home or self-care (01) ==
LOC: HO.LAB 06:46
PROVIDERS: PCP Internal Medicine; Visit Provider Internal Medicine
DX: R60.0 Localized edema (principal)
CPT/HCPCS: 36415; 80048

== ENCOUNTER 2022-09-15 08:01 | Outpatient (REF) | payer MEDICARE, SELFPAY ==
[2021-12-15 06:48] VITALS: BP 134/60; BP 138/62; BP 140/66; BMI 31.4
[2022-09-15 08:20] LABS: MANUAL DIFF FLAG NO
[2022-09-15 08:40] LABS: Basophils Absolute Auto 0.1 X10*3/uL (0.0-0.2); Basophils Percent Auto 0.7 % (0-2); Eosinophils Absolute Auto 0.3 X10*3/uL (0.0-0.4); Eosinophils Percent Auto 3.9 % (0-4); Hematocrit 37.3 % (37.0-47.0); Hemoglobin 12.2 g/dl (12.0-16.0); Imm Gran Abs Auto 0.02 X10*3/uL (0.00-0.03); Imm Gran Pct Auto 0.3 % (0.0-0.4); Lymphocytes Absolute Auto 2.2 X10*3/uL (1.2-4.9); Lymphocytes Percent Auto 32.8 % (20-40); Mean Corpuscular HGB Conc 32.7 g/dl (31.0-35.0); Mean Corpuscular Hemoglobin 31.3 pg (27.0-33.0); Mean Corpuscular Volume 95.6 fL (80.0-98.0); Mean Platelet Volume 11.1 fL (9.4-12.3); Monocytes Absolute Auto 0.8 X10*3/uL (0.1-1.2); Neutrophils Absolute Auto 3.4 x10*3/uL (2.0-8.3); Neutrophils Percent Auto 50.3 % (45-73); Platelet Count 209 X10*3/uL (160-400); Red Cell Distribution Width 12.4 % (11.0-16.0); White Blood Count 6.7 X10*3/uL (4.8-10.8)
[2022-09-15 09:07] LABS: Alanine Aminotransferase 28 U/L (0-31); Albumin Level 3.9 g/dL (3.5-5.0); Alkaline Phosphatase 88 U/L (39-117); Anion Gap 16 (12-20); Aspartate Amino Transferase 41 U/L (5-31); Blood Urea Nitrogen 24 mg/dL (9-16); Calcium 9.5 mg/dL (8.4-10.2); Carbon Dioxide 29 mmol/L (22-29); Chloride 103 mmol/L (96-108); Estimated Glomerular Filt Rate 37; Glucose Random 110 mg/dL (60-115); Potassium 4.6 mmol/L (3.3-5.1); Sodium 143 mmol/L (135-145); Total Protein 6.5 g/dL (6.5-8.0)
== END 2022-09-15 08:02 | disposition home or self-care (01) ==
LOC: HO.LAB 08:01
PROVIDERS: Absent Provider Internal Medicine Cardiovascular Disease; PCP Internal Medicine; Visit Provider Internal Medicine
DX: R60.9 Edema, unspecified (principal); I35.0 Nonrheumatic aortic (valve) stenosis
CPT/HCPCS: 36415; 80053; 85025

== ENCOUNTER → 2022-09-23 12:40 | Outpatient (REF) | payer MEDICARE, SELFPAY ==
[2021-12-15 06:48] VITALS: BP 134/60; BP 138/62; BP 140/66; BMI 31.4
--- NOTE | 2022-09-23 12:43 | CA_ITS ---
Transthoracic Echocardiogram Patient (Last, First, Middle): Mandy Ayala T Gender: Female Date of : 1940 Age: 82 Procedure Date: 09/23/2022 Procedure Type: Transthoracic Echocardiogram Location: OP Height: 160.02 cm Weight: 74.84 kg BSA: 1.78 m2 Heart Rate: 66 bpm BP: 150 / 80 mmHg Quality Assistant: ANA CRISTINA Referring MD: Glen Jewell MD Symptoms: Z95.3 - Presence of xenogenic heart valve Study Quality: Fair ECG Rhythm: Sinus Conclusions: - The left ventricular systolic function is normal. The calculated ejection fraction is 62% by biplane method. - A bioprosthetic aortic valve is present. The prosthetic aortic valve appears to be functioning normally. Findings Left Ventricle Normal left ventricular cavity size. There is normal left ventricular wall thickness. The left ventricular systolic function is normal. The calculated ejection fraction is 62% by biplane method. There is no evidence of regional wall motion abnormalities. Evidence suggests grade I (mild) diastolic dysfunction. LV peak GLS -17.5%. Right Ventricle Normal right ventricular cavity size and systolic function. Atria Both atria are normal in size. Aortic Valve A bioprosthetic aortic valve is present. The prosthetic aortic valve appears to be functioning normally. The mean gradient is 15 mmHg. There is no aortic valve regurgitation. Mitral Valve There is mild mitral annular calcification. There is trace mitral valve regurgitation. There is no mitral valve stenosis. Pulmonic Valve The pulmonic valve is likely normal. Tricuspid Valve There is mild tricuspid valve regurgitation. There is no evidence of pulmonary hypertension. Great Vessels The asc aorta is normal in size. Venous The inferior vena cava is normal in size and collapses greater than 50% with inspiration. Pericardium/Pleural There is no evidence of pericardial effusion. Prior Study Comparison No significant change compared to prior study dated: 10/01/2021. Measurements 2D Linear Measurements IVSd: 0.93 0.6-0.9/0.6-1.0 cm LVIDd: 3.82 3.9-5.3/4.2-5.9 cm LVIDd Index: 2.15 2.4-3.2/2.2-3.1 cm/m2 LVIDs: 2.55 2.0-3.6 cm LVPWd: 0.92 0.7-1.1 cm LA Diam: 2.90 2.7-3.8/3.0-4.0 cm LAIDs Index: 1.63 1.5-2.3 cm/m2 LV Mass: 131.80 67-162/88-224 g LV Mass Index: 74.05 43-95/49-115 g/m2 LVOT Diam: 1.80 3.0+(-)1.3 cm 2D Systolic Function EF 4C: 67.90 >55% EF 2C: 53.80 >55% EF BiP: 62.30 >55% Mitral Valve MV Pk E: 1.18 MV PK A: 1.35 MV Decel Time: 305.00 E/A: 0.90 E'Lateral: 5.33 E'Medial: 5.55 E/E' Med: 21.30 E/E' Lat: 22.10 PHT: 89.00 MVA PHT: 2.47 Decel [place]: 3.87 Aortic Valve AoV Pk Jorge: 2.50 AoV Mn Jorge: 1.80 AoV VTI: 0.60 AoV Pk Grad: 25.00 Aov Mn Grad: 15.00 NABIL Cont.VTI: 1.31 LVOT LVOT Pk Jorge: 1.24 LVOT Mn Jorge: 0.91 LVOT VTI: 0.31 LVOT Pk Grad: 6.00 LVOT Mn Grad: 4.00 LVOT Diam: 1.80 LVOT Area: 2.54 Diastolic Function MV Pk E: 1.18 MV Pk A: 1.35 E/A: 0.90 E'Medial: 5.55 E/E' Med: 21.30 E' Laterial: 5.33 E/E' Lat: 22.10 Right Ventricle TAPSE (mm): 28.20 TVS' Jorge: 11.60 Tricuspid Valve TR Pk Jorge: 2.41 TR Pk Grad: 23.00 RA Press: 3.00 RVSP: 26.00 Great Vessels Aorta Sinus of Valsalva: 2.70 2.0-3.5 cm Ao Asc: 2.60 2.1-3.4 cm Pulmonary Valve PV Pk Jorge: 1.22 Peak PV Grad: 6.00 Updated in Other Vendor System with Status of Final Mahamed Locke MD electronically signed on 09/25/2022 11:06:22 AM with status of Final
== END ==
LOC: HO.CARD 12:40
PROVIDERS: PCP Internal Medicine; Visit Provider Internal Medicine Cardiovascular Disease
DX: Z95.3 Presence of xenogenic heart valve (principal); Z95.4 Presence of other heart-valve replacement
CPT/HCPCS: 93306

== ENCOUNTER 2022-10-25 13:23 | Outpatient (REF) | payer MEDICARE, SELFPAY ==
[2021-12-15 06:48] VITALS: BP 134/60; BP 138/62; BP 140/66; BMI 31.4
[2022-10-25 16:25] LABS: Anion Gap 16 (12-20); Blood Urea Nitrogen 28 mg/dL (9-16); Calcium 9.7 mg/dL (8.4-10.2); Carbon Dioxide 31 mmol/L (22-29); Chloride 101 mmol/L (96-108); Estimated Glomerular Filt Rate 42; Glucose Random 154 mg/dL (60-115); Potassium 4.4 mmol/L (3.3-5.1); Sodium 144 mmol/L (135-145)
== END 2022-10-25 13:24 | disposition home or self-care (01) ==
LOC: HO.LAB 13:23
PROVIDERS: PCP Internal Medicine; Referring Provider Internal Medicine; Visit Provider Internal Medicine Cardiovascular Disease
DX: I48.0 Paroxysmal atrial fibrillation (principal); Z95.0 Presence of cardiac pacemaker; Z95.3 Presence of xenogenic heart valve
CPT/HCPCS: 36415; 80048; 93280; 99212

== ENCOUNTER → 2023-01-09 23:59 | Outpatient (BNV) | payer MEDICARE, SELFPAY ==
[2021-12-15 06:48] VITALS: BP 134/60; BP 138/62; BP 140/66; BMI 31.4
--- NOTE | 2023-01-10 12:51 | MHC.OFFVIS ---
Intake Intake Visit Reasons: Remote Device Check- Medtronic Allergies aspirin Allergy (Unknown, Verified 09/17/21 14:46) asthma Egg Allergy (Unknown, Uncoded 09/17/21 14:46) Unknown Fluarix Allergy (Unknown, Uncoded 09/17/21 14:46) Unknown NSAIDs Allergy (Unknown, Uncoded 09/17/21 14:46) shortness of breath Shellfish Allergy (Unknown, Uncoded 09/17/21 14:46) Unknown PFSH Medical History Aortic stenosis Cardiac pacemaker in situ HTN (hypertension) PAF (paroxysmal atrial fibrillation) Surgical History History of carpal tunnel release History of tonsillectomy and adenoidectomy Hx of breast surgery Hx of cholecystectomy Hx of colonoscopy Hx of knee surgery Hx of total hysterectomy S/P cardiac cath Status post transcatheter aortic valve replacement (TAVR) using bioprosthesis Family History Father CVD (cardiovascular disease) Mother No problems noted. Sister CVD (cardiovascular disease) Social History Patient Tobacco Use Status: Never used Tobacco Office Procedures Cardiac Device Check Cardiac Device Check Details: Remote pacemaker report generated 01/09/2023. Pacemaker function is adequate. Total burden of atrial fibrillation at 0.3% [id number] Cardiac Device Interrogation, pacemaker Procedure code (CPT) selection complete Coding Level of Care Code Procedure Only Diagnoses CPT Codes Cardiac Device Check - Cardiac Device 12: [id number] Cardiac Device Interrogation, pacemaker ([id number])
== END ==
PROVIDERS: PCP Internal Medicine; Visit Provider Internal Medicine Cardiovascular Disease
DX: I48.0 Paroxysmal atrial fibrillation (principal); Z95.0 Presence of cardiac pacemaker
CPT/HCPCS: 93294

== ENCOUNTER 2023-02-28 13:50 | Outpatient (REF) | payer MEDICARE, SELFPAY ==
[2021-12-15 06:48] VITALS: BP 134/60; BP 138/62; BP 140/66; BMI 31.4
--- NOTE | ~2023-02-28 | US_ITS ---
EXAMINATION: MM DIAGNOSTIC DIGITAL BREAST TOMOSYNTHESIS, BILATERAL US BREAST LIMITED, LEFT MAMMOGRAPHY: CLINICAL INFORMATION: Patient overdue for six-month follow-up left breast calcifications. Patient complaining of skin lesion left breast 5:00 axis (strawberry nevus) COMPARISON: Mammography: 03/18/2021, 09/15/2020, 08/28/2020. 11/15/2017. TECHNIQUE: Digital breast tomosynthesis is performed in both the craniocaudal and mediolateral oblique views along with computer-aided detection (CAD). Synthesized 2D images are generated from the tomosynthesis. At its left MLO view with pacemaker device out of field also provided. FINDINGS: There are scattered areas of fibroglandular density (ACR BI-RADS breast composition Category b). There are loosely grouped calcifications in the central left breast, which have a benign morphology, and has been stable since 08/28/2020. No further follow-up warranted as these are stable and benign. Otherwise, there are a few scattered dystrophic calcifications in the right and left breasts. No new suspicious pleomorphic calcifications, dominant masses, or regions of architectural distortion. Left pacemaker device noted. The overall parenchymal pattern is stable from prior exams. There are no findings suspicious for malignancy. ULTRASOUND: CLINICAL INFORMATION: Evaluate skin lesion left breast 5:00 axis. COMPARISON: None TECHNIQUE: Targeted sonographic evaluation was performed using a high frequency linear transducer. Focus on the left breast at the 5:00 axis was performed. Selected archived documentation. FINDINGS: LEFT BREAST: There is a intradermal lesion measuring 4 mm in length, consistent with the strawberry nevus is seen on physical exam. There is no underlying mass, cystic abnormality, abnormal shadowing, or edema within soft tissue planes. This finding is benign. US/US breast LT limited mamm only IMPRESSION: Benign findings both breasts. Stable calcifications central left breast without change, with two-year stability, indicating benignity. Skin lesion left breast 5:00 axis representing strawberry nevus. This is benign. Recommend the patient resume routine annual screening mammography. OVERALL ASSESSMENT: Mammography: BI-RADS 2 - Benign Findings Ultrasound: BI-RADS 2 - Benign Findings RECOMMENDATION: 1 year F/U Results were provided to the patient at time of visit by the technologist. This patient's information was entered into a reminder system with a target due date for their next mammogram.
== END 2023-02-28 13:51 | disposition home or self-care (01) ==
LOC: HO.MAMMO 13:50
PROVIDERS: PCP Internal Medicine; Visit Provider Internal Medicine
DX: N63.25 Unspecified lump in the left breast, overlapping quadrants (principal)
CPT/HCPCS: 76642; 77062; 77066

== ENCOUNTER → 2023-02-28 14:00 | Outpatient (BNV) | payer MEDICARE, SELFPAY ==
[2021-12-15 06:48] VITALS: BP 134/60; BP 138/62; BP 140/66; BMI 31.4
== END ==
PROVIDERS: PCP Internal Medicine; Visit Provider Radiology Diagnostic Radiology
DX: R92.1 Mammographic calcification found on diagnostic imaging of breast (principal); N64.59 Other signs and symptoms in breast
CPT/HCPCS: 76642; 77062; 77066; G0279

== ENCOUNTER → 2023-04-10 23:59 | Outpatient (BNV) | payer MEDICARE, SELFPAY ==
[2021-12-15 06:48] VITALS: BP 134/60; BP 138/62; BP 140/66; BMI 31.4
--- NOTE | 2023-04-11 15:15 | MHC.OFFVIS ---
Intake Intake Visit Reasons: Remote Device Check- Medtr[employer] Allergies aspirin Allergy (Unknown, Verified 09/17/21 14:46) asthma Egg Allergy (Unknown, Uncoded 09/17/21 14:46) Unknown Fluarix Allergy (Unknown, Uncoded 09/17/21 14:46) Unknown NSAIDs Allergy (Unknown, Uncoded 09/17/21 14:46) shortness of breath Shellfish Allergy (Unknown, Uncoded 09/17/21 14:46) Unknown PFSH Medical History Aortic stenosis Cardiac pacemaker in situ HTN (hypertension) PAF (paroxysmal atrial fibrillation) Surgical History History of carpal tunnel release History of tonsillectomy and adenoidectomy Hx of breast surgery Hx of cholecystectomy Hx of colonoscopy Hx of knee surgery Hx of total hysterectomy S/P cardiac cath Status post transcatheter aortic valve replacement (TAVR) using bioprosthesis Family History Father CVD (cardiovascular disease) Mother No problems noted. Sister CVD (cardiovascular disease) Social History Patient Tobacco Use Status: Never used Tobacco Office Procedures Cardiac Device Check Cardiac Device Check Details: Remote pacemaker report generated 04/10/2023. Pacemaker function is adequate. Overall burden of atrial fibrillation 0.3% [id number] Cardiac Device Interrogation, pacemaker Procedure code (CPT) selection complete Coding Level of Care Code Procedure Only CPT Codes Cardiac Device Check - Cardiac Device 12: [id number] Cardiac Device Interrogation, pacemaker ([id number])
== END ==
PROVIDERS: PCP Internal Medicine; Visit Provider Internal Medicine Cardiovascular Disease
DX: I48.0 Paroxysmal atrial fibrillation (principal); Z95.0 Presence of cardiac pacemaker
CPT/HCPCS: 93294

== ENCOUNTER 2023-04-25 13:28 | Outpatient (AMB) | payer MEDICARE, SELFPAY ==
[2021-12-15 06:48] VITALS: BP 134/60; BP 138/62; BP 140/66; BMI 31.4
[2023-04-25 13:30] VITALS: BP 130/60; PULSE 72; BMI 30.5
--- NOTE | 2023-04-25 13:30 | A.OFFVIS_ITS ---
Intake Vital Signs 04/25/23 13:30 Height 5 ft 3 in Weight 171 lb 15.369 oz BMI 30.5 BP 130/60 Blood Pressure Location Lt brachial Position Sitting Pulse 72 Intake Visit Reasons: 6 month follow up w/ Medtr[employer] Intake Note: 6 month follow-up with ekg and medtronic check feeling good Director Television News Required: No Film Sorter: Film Sorter Present Accompanied by: Spouse Allergies aspirin Allergy (Unknown, Verified 09/17/21 14:46) asthma Egg Allergy (Unknown, Uncoded 09/17/21 14:46) Unknown Fluarix Allergy (Unknown, Uncoded 09/17/21 14:46) Unknown NSAIDs Allergy (Unknown, Uncoded 09/17/21 14:46) shortness of breath Shellfish Allergy (Unknown, Uncoded 09/17/21 14:46) Unknown Medication List - Last Reconciled 04/25/23 by Glen Jewell MD apixaban (Eliquis) 5 mg PO BID 90 days lisinopril 2.5 mg PO DAILY metoprolol succinate ER 25 mg PO DAILY prednisone 2 mg PO BID rosuvastatin 5 mg PO DAILY 90 days torsemide 20 mg PO DAILY HPI HPI Comments History of Present Illness Details Mandy comes for follow-up. She has been doing well from cardiac perspective. Denies any prolonged cardiac symptoms. Denies exertional chest pain shortness of breath. Denies heart failure symptoms. Denies any prolonged palpitations irregular heartbeat. No bleeding issues or neurologic events. No lightheadedness, syncope. Takes all her medications. [facility] Medical History Cardiac pacemaker in situ Aortic stenosis PAF (paroxysmal atrial fibrillation) HTN (hypertension) Surgical History Status post transcatheter aortic valve replacement (TAVR) using bioprosthesis S/P cardiac cath History of carpal tunnel release Hx of knee surgery Hx of colonoscopy Hx of breast surgery History of tonsillectomy and adenoidectomy Hx of total hysterectomy Hx of cholecystectomy Family History Father CVD (cardiovascular disease) Mother No problems noted. Sister CVD (cardiovascular disease) Social History Patient Tobacco Use Status: Never used Tobacco Review of Systems Const Denies chills, Denies fatigue, Denies fever(s), Denies frequent falls, Denies weakness, Denies weight gain and Denies weight loss ENT Denies dizziness Card Denies chest pain, Denies leg edema, Denies lightheadedness, Denies pa lpitations, Denies dyspnea, Denies dyspnea on exertion, Denies orthopnea and Denies other (loss of consciousness) Resp Denies cough, Denies dyspnea and Denies dyspnea on exertion GI Denies hematochezia and Denies change in stool character Musc Denies abnormal gait, Denies muscle weakness, Denies numbness, Denies radiating pain into limb and Denies tingling Neuro Denies abnormal gait, Denies dizziness, Denies frequent falls, Denies numbness, Denies tingling and Denies weakness Endo Denies fatigue and Denies palpitations Physical Exam Vital Signs: Last Vital Signs Pulse 72 04/25/23 13:30 BP 130/60 04/25/23 13:30 BMI result Body Mass Index 30.5 Const General: cooperative, comfortable, no acute distress, alert and awake Nutritional Appearance: overweight Orientation/consciousness: patient oriented x3 Limitations: no limitations Neck Neck: Yes trachea midline, Yes supple and Yes no JVD (Mild abdominal jugular reflux) Resp Effort & Inspection: normal respiratory effort Auscultation: clear to auscultation bilaterally Cardio Jugular venous distension: no JVD Palpation: normal PMI Rate: regular rate Rhythm: regular rhythm Heart sounds: S1 normal heart sound present, S2 abnormal, no click, no gallops, Murmur heart sound present systolic early and Other heart sounds present (S4 present) Peripheral pulses: Peripheral pulses 2+ throughout GI Auscultation: normal bowel sounds Skin General skin exam: no rashes or lesions noted Neuro General: patient oriented x3 Extrem General: No clubbing, No cyanosis and Yes edema Office Procedures Cardiac Device Check Cardiac Device Check Details: Dual-chamber Medtronic pacemaker in place. Programmed in MVP mode with rate response at 50 beats per minute. Atrial pacing 26% of time. Ventricular pacing 100% of the time. Multiple episodes of atrial fibrillation noted with total burden of 0.4%. Atrial pacing thresholds excellent and reprogrammed to enhance battery life. Ventricular pacing thresholds adequate and reprogrammed to enhance battery life. Atrial ventricular sensing is adequate. Battery life is excellent about 11.8 years [id number] Cardiac Device Check, pacemaker dual lead Procedure code (CPT) selection complete EKG Details: EKG shows dual AV paced rhythm at 72 beats per minute [id number], Complete Assessment & Plan Assessment & Plan (1) Status post transcatheter aortic valve replacement (TAVR) using bioprosthesis: Comment: 23 mm Evolut valve. Mean gradient of 12 mmHg postprocedure Code(s): Z95.3 - Presence of xenogenic heart valve Plan: Status post transcatheter aortic valve placement severe aortic stenosis doing very well. Continue full oral anticoagulation as below. SBE prophylaxis as per ACC/aha guidelines. Continue aggressive vascular risk factor modification. Blood pressure is well optimized. Goal LDL less than 100 mg/dL. (2) Cardiac pacemaker in situ: Comment: Medtronic dual-chamber pacemaker placed, for postprocedure complete heart block Code(s): Z95.0 - Presence of cardiac pacemaker Plan: Cardiac pacemaker in-situ for complete heart block post device placement. Patient pacer dependent in the ventricle. Will follow echocardiogram LV function in 6 months time. Pacemaker is working well follow remotely as well as in the clinic in 6 months time. (3) PAF (paroxysmal atrial fibrillation): Code(s): I48.0 - Paroxysmal atrial fibrillation Plan: Paroxysmal atrial fibrillation without any obvious symptoms. Continue metoprolol therapy. Advised to avoid stimulants. Advised to call me with any prolonged symptoms. Currently on full oral anticoagulation Eliquis. Continue monitor renal function every 6 months and CBC on annual basis. Will follow up in the clinic in 6 months time, sooner p.r.n.. Thank you for allowing me to partake in her care Orders: Orders CA echo transthoracic complete 6 Months Z95.3 - Presence of xenogenic heart valve Basic Metabolic Panel Today I48.0 - Paroxysmal atrial fibrillation Coding Level of Care Code Est Pt Level 4 (89593) Diagnoses Status post transcatheter aortic valve replacement (TAVR) using bioprosthesis Z95.3 Cardiac pacemaker in situ Z95.0 PAF (paroxysmal atrial fibrillation) I48.0 CPT Codes Cardiac Device Check - Cardiac Device 2: [id number] Cardiac Device Check, pacemaker dual lead ([id number]) EKG - CPT: 34243-[id number], Complete ([id number])
== END 2023-04-25 13:48 | disposition home or self-care (01) ==
PROVIDERS: Visit Provider Internal Medicine Cardiovascular Disease
DX: I48.0 Paroxysmal atrial fibrillation (principal); Z95.3 Presence of xenogenic heart valve; Z95.0 Presence of cardiac pacemaker
CPT/HCPCS: 93280; 99214

== ENCOUNTER 2023-04-25 13:28 | Outpatient (REF) | payer MEDICARE, SELFPAY ==
[2021-12-15 06:48] VITALS: BP 134/60; BP 138/62; BP 140/66; BMI 31.4
[2023-04-25 15:10] LABS: Anion Gap 11 (12-20); Blood Urea Nitrogen 32 mg/dL (9-16); Calcium 9.8 mg/dL (8.4-10.2); Carbon Dioxide 34 mmol/L (22-29); Chloride 102 mmol/L (96-108); Estimated Glomerular Filt Rate 38; Glucose Random 112 mg/dL (60-115); Potassium 4.2 mmol/L (3.3-5.1); Sodium 143 mmol/L (135-145)
== END 2023-04-25 13:29 | disposition home or self-care (01) ==
LOC: HO.LAB 13:28
PROVIDERS: PCP Internal Medicine; Visit Provider Internal Medicine Cardiovascular Disease
DX: I48.0 Paroxysmal atrial fibrillation (principal); Z95.3 Presence of xenogenic heart valve; Z95.0 Presence of cardiac pacemaker; Z79.52 Long term (current) use of systemic steroids; Z79.899 Other long term (current) drug therapy
CPT/HCPCS: 36415; 80048; 93005; 93280; 99212

== ENCOUNTER → 2023-07-10 23:59 | Outpatient (BNV) | payer MEDICARE, SELFPAY ==
[2021-12-15 06:48] VITALS: BP 134/60; BP 138/62; BP 140/66; BMI 31.4
--- NOTE | 2023-07-18 14:09 | MHC.OFFVIS ---
Intake Intake Visit Reasons: Remote Device Check- Medtronic Allergies aspirin Allergy (Unknown, Verified 09/17/21 14:46) asthma Egg Allergy (Unknown, Uncoded 09/17/21 14:46) Unknown Fluarix Allergy (Unknown, Uncoded 09/17/21 14:46) Unknown NSAIDs Allergy (Unknown, Uncoded 09/17/21 14:46) shortness of breath Shellfish Allergy (Unknown, Uncoded 09/17/21 14:46) Unknown PFSH Medical History Cardiac pacemaker in situ Aortic stenosis PAF (paroxysmal atrial fibrillation) HTN (hypertension) Surgical History Status post transcatheter aortic valve replacement (TAVR) using bioprosthesis S/P cardiac cath History of carpal tunnel release Hx of knee surgery Hx of colonoscopy Hx of breast surgery History of tonsillectomy and adenoidectomy Hx of total hysterectomy Hx of cholecystectomy Family History Father CVD (cardiovascular disease) Mother No problems noted. Sister CVD (cardiovascular disease) Social History Patient Tobacco Use Status: Never used Tobacco Office Procedures Cardiac Device Check Cardiac Device Check Details: Remote pacemaker report generated 07/10/2023. Pacemaker function is adequate. Total burden of atrial fibrillation at 1%. Patient pacing in the ventricle 100% of time [id number] Cardiac Device Interrogation, pacemaker Procedure code (CPT) selection complete Assessment & Plan Assessment & Plan (1) Cardiac pacemaker in situ: Comment: Medtronic dual-chamber pacemaker placed, for postprocedure complete heart block Code(s): Z95.0 - Presence of cardiac pacemaker Plan: See above Coding Level of Care Code Procedure Only Diagnoses Cardiac pacemaker in situ Z95.0 CPT Codes Cardiac Device Check - Cardiac Device 12: [id number] Cardiac Device Interrogation, pacemaker ([id number])
== END ==
PROVIDERS: PCP Internal Medicine; Visit Provider Internal Medicine Cardiovascular Disease
DX: I48.0 Paroxysmal atrial fibrillation (principal); Z95.0 Presence of cardiac pacemaker
CPT/HCPCS: 93294

== ENCOUNTER → 2023-08-30 10:37 | Outpatient (REF) | payer MEDICARE, SELFPAY ==
[2021-12-15 06:48] VITALS: BP 134/60; BP 138/62; BP 140/66; BMI 31.4
--- NOTE | 2023-08-30 10:39 | CA_ITS ---
Transthoracic Echocardiogram Patient (Last, First, Middle): Mandy Ayala T Gender: Female Date of : 1940 Age: 83 Procedure Date: 08/30/2023 Procedure Type: Transthoracic Echocardiogram Location: OP Height: 160.02 cm Weight: 74.84 kg BSA: 1.78 m2 Heart Rate: bpm BP: 150 / 76 mmHg Moving Picture Producer: NISREEN Referring MD: Glen Jewell MD Symptoms: Z95.3 - Presence of xenogenic heart valve Study Quality: Fair Conclusions: - The left ventricular systolic function is normal. The calculated ejection fraction is 62% by biplane method. - A bioprosthetic aortic valve is present. The prosthetic aortic valve appears to be functioning normally. Findings Left Ventricle Normal left ventricular cavity size. There is normal left ventricular wall thickness. The left ventricular systolic function is normal. The calculated ejection fraction is 62% by biplane method. There is no evidence of regional wall motion abnormalities. Diastolic function is normal for age. LV peak GLS -21.2%. Right Ventricle Normal right ventricular cavity size and systolic function. Atria The left atrium is mildly dilated. The right atrium is normal in size. Aortic Valve A bioprosthetic aortic valve is present. The prosthetic aortic valve appears to be functioning normally. The mean gradient is 13 mmHg. There is no aortic valve regurgitation. Mitral Valve There is mild mitral annular calcification. There is trace mitral valve regurgitation. There is no mitral valve stenosis. Pulmonic Valve The pulmonic valve is likely normal. Tricuspid Valve There is mild tricuspid valve regurgitation. There is no evidence of pulmonary hypertension. Great Vessels The aorta was not well visualized. Venous The inferior vena cava is normal in size and collapses greater than 50% with inspiration. Pericardium/Pleural There is no evidence of pericardial effusion. Prior Study Comparison No significant change compared to prior study dated: 09/23/2022. Measurements 2D Linear Measurements IVSd: 0.90 0.6-0.9/0.6-1.0 cm LVIDd: 4.11 3.9-5.3/4.2-5.9 cm LVIDd Index: 2.31 2.4-3.2/2.2-3.1 cm/m2 LVIDs: 3.09 2.0-3.6 cm LVPWd: 0.82 0.7-1.1 cm LA Diam: 3.30 2.7-3.8/3.0-4.0 cm LAIDs Index: 1.85 1.5-2.3 cm/m2 LV Mass: 133.67 67-162/88-224 g LV Mass Index: 75.09 43-95/49-115 g/m2 LVOT Diam: 1.90 3.0+(-)1.3 cm 2D Systolic Function EF 4C: 60.00 >55% EF 2C: 63.30 >55% EF BiP: 62.20 >55% Mitral Valve MV Pk E: 1.11 MV PK A: 1.19 MV Decel Time: 231.00 E/A: 0.90 E'Lateral: 7.18 E'Medial: 6.85 E/E' Med: 16.20 E/E' Lat: 15.50 PHT: 68.00 MVA PHT: 3.24 Decel [place]: 4.78 Aortic Valve AoV Pk Jorge: 2.42 AoV Mn Jorge: 1.66 AoV VTI: 0.60 AoV Pk Grad: 23.00 Aov Mn Grad: 13.00 NABIL Cont.VTI: 1.11 LVOT LVOT Pk Jorge: 0.91 LVOT Mn Jorge: 0.66 LVOT VTI: 0.24 LVOT Pk Grad: 3.00 LVOT Mn Grad: 2.00 LVOT Diam: 1.90 LVOT Area: 2.84 Diastolic Function MV Pk E: 1.11 MV Pk A: 1.19 E/A: 0.90 E'Medial: 6.85 E/E' Med: 16.20 E' Laterial: 7.18 E/E' Lat: 15.50 Right Ventricle TAPSE (mm): 28.20 TVS' Jorge: 12.70 Tricuspid Valve TR Pk Jorge: 2.74 TR Pk Grad: 30.00 RA Press: 3.00 RVSP: 33.00 Updated in Other Vendor System with Status of Final Mahamed Locke MD electronically signed on 08/30/2023 4:40:07 PM with status of Final
== END ==
LOC: HO.CARD 10:37
PROVIDERS: PCP Internal Medicine; Visit Provider Internal Medicine Cardiovascular Disease
DX: Z95.3 Presence of xenogenic heart valve (principal)
CPT/HCPCS: 93306; 93356

== ENCOUNTER → 2023-08-30 10:39 | Outpatient (BNV) | payer MEDICARE, SELFPAY ==
[2021-12-15 06:48] VITALS: BP 134/60; BP 138/62; BP 140/66; BMI 31.4
== END ==
PROVIDERS: PCP Internal Medicine; Visit Provider Internal Medicine
DX: I34.81 Nonrheumatic mitral (valve) annulus calcification (principal); Z95.3 Presence of xenogenic heart valve
CPT/HCPCS: 93306; 93356

== ENCOUNTER → 2023-10-09 23:59 | Outpatient (BNV) | payer MEDICARE, SELFPAY ==
[2021-12-15 06:48] VITALS: BP 134/60; BP 138/62; BP 140/66; BMI 31.4
--- NOTE | 2023-10-11 14:51 | MHC.OFFVIS ---
Intake Visit Reasons: Remote device check- Medtronic Allergies aspirin Allergy (Unknown, Verified 09/17/21 14:46) asthma Egg Allergy (Unknown, Uncoded 09/17/21 14:46) Unknown Fluarix Allergy (Unknown, Uncoded 09/17/21 14:46) Unknown NSAIDs Allergy (Unknown, Uncoded 09/17/21 14:46) shortness of breath Shellfish Allergy (Unknown, Uncoded 09/17/21 14:46) Unknown PFSH Medical History Cardiac pacemaker in situ Aortic stenosis PAF (paroxysmal atrial fibrillation) HTN (hypertension) Surgical History Status post transcatheter aortic valve replacement (TAVR) using bioprosthesis S/P cardiac cath History of carpal tunnel release Hx of knee surgery Hx of colonoscopy Hx of breast surgery History of tonsillectomy and adenoidectomy Hx of total hysterectomy Hx of cholecystectomy Family History Father CVD (cardiovascular disease) Mother No problems noted. Sister CVD (cardiovascular disease) Social History Patient Tobacco Use Status: Never used Tobacco Office Procedures Cardiac Device Check Cardiac Device Check Details: Remote pacemaker report generated 10/09/2023. Pacemaker function is adequate [id number] Cardiac Device Interrogation, pacemaker Procedure code (CPT) selection complete Assessment & Plan Assessment & Plan (1) Cardiac pacemaker in situ: Comment: Medtronic dual-chamber pacemaker placed, for postprocedure complete heart block Code(s): Z95.0 - Presence of cardiac pacemaker Category: Medical Plan: See above Coding Level of Care Code Procedure Only Diagnoses Cardiac pacemaker in situ Z95.0 CPT Codes Cardiac Device Check - Cardiac Device 12: [id number] Cardiac Device Interrogation, pacemaker ([id number])
== END ==
PROVIDERS: PCP Internal Medicine; Visit Provider Internal Medicine Cardiovascular Disease
DX: I44.2 Atrioventricular block, complete (principal); Z95.0 Presence of cardiac pacemaker
CPT/HCPCS: 93294

== ENCOUNTER 2023-10-18 13:43 | Outpatient (AMB) | payer MEDICARE, SELFPAY ==
[2021-12-15 06:48] VITALS: BP 134/60; BP 138/62; BP 140/66; BMI 31.4
[2023-10-18 13:46] VITALS: BP 120/76; PULSE 74; BMI 32.0
--- NOTE | 2023-10-18 13:46 | A.OFFVIS_ITS ---
Vital Signs 10/18/23 13:46 Height 5 ft 3 in Weight 180 lb 12.465 oz BMI 32.0 BP 120/76 Blood Pressure Location Lt brachial Position Sitting Pulse 74 Intake Visit Reasons: 6 mth f/up Intake Note: 6 month follow-up c/o fatigue Stamping Mill Tender Required: No Allergies aspirin Allergy (Unknown, Verified 09/17/21 14:46) asthma Egg Allergy (Unknown, Uncoded 09/17/21 14:46) Unknown Fluarix Allergy (Unknown, Uncoded 09/17/21 14:46) Unknown NSAIDs Allergy (Unknown, Uncoded 09/17/21 14:46) shortness of breath Shellfish Allergy (Unknown, Uncoded 09/17/21 14:46) Unknown Medication List - Last Reconciled 10/18/23 by Glen Jewell MD apixaban (Eliquis) 5 mg PO BID 90 days lisinopril 2.5 mg PO DAILY metoprolol succinate ER 25 mg PO DAILY prednisone 2 mg PO BID rosuvastatin 5 mg PO DAILY 90 days torsemide 20 mg PO DAILY HPI Comments Details: Mandy comes for follow-up of her pacemaker as well as atrial fibrillation and transcatheter aortic valve replacement. She complains of feeling tired. Denies any worsening shortness of breath, orthopnea, PND, leg edema. Denies any prolonged palpitation irregular heartbeat. Denies any lightheadedness, syncope but has some balance issues. Denies any falls. No bleeding issues or neurologic events. No exertional chest pain. [facility] Medical History Cardiac pacemaker in situ Aortic stenosis PAF (paroxysmal atrial fibrillation) HTN (hypertension) Surgical History Status post transcatheter aortic valve replacement (TAVR) using bioprosthesis S/P cardiac cath History of carpal tunnel release Hx of knee surgery Hx of colonoscopy Hx of breast surgery History of tonsillectomy and adenoidectomy Hx of total hysterectomy Hx of cholecystectomy Family History Father CVD (cardiovascular disease) Mother No problems noted. Sister CVD (cardiovascular disease) Social History Patient Tobacco Use Status: Never used Tobacco Review of Systems Const Denies chills, Denies fatigue, Denies fever(s), Denies frequent falls, Denies weakness, Denies weight gain and Denies weight loss ENT Denies dizziness Card Denies chest pain, Denies leg edema, Denies lightheadedness, Denies palpitations, Denies dyspnea, Denies dyspnea on exertion, Denies orthopnea and Denies other (loss of consciousness) Resp Denies cough, Denies dyspnea and Denies dyspnea on exertion GI Denies hematochezia and Denies change in stool character Musc Denies abnormal gait, Denies muscle weakness, Denies numbness, Denies radiating pain into limb and Denies tingling Neuro Denies abnormal gait, Denies dizziness, Denies frequent falls, Denies numbness, Denies tingling and Denies weakness Endo Denies fatigue and Denies palpitations Physical Exam Vital Signs: Last Vital Signs Pulse 74 10/18/23 13:46 BP 120/76 10/18/23 13:46 BMI result Body Mass Index 32.0 Const General: cooperative, comfortable, no acute distress, alert and awake Nutritional Appearance: overweight Orientation/consciousness: patient oriented x3 Limitations: no limitations Neck Neck: Yes trachea midline, Yes supple and Yes no JVD (Mild abdominal jugular reflux) Resp Effort & Inspection: normal respiratory effort Auscultation: clear to auscultation bilaterally Cardio Jugular venous distension: no JVD Palpation: normal PMI Rate: regular rate Rhythm: regular rhythm Heart sounds: S1 normal heart sound present, S2 abnormal, no click, no gallops, Murmur heart sound present systolic early and Other heart sounds present (S4 present) Peripheral pulses: Peripheral pulses 2+ throughout GI Auscultation: normal bowel sounds Skin General skin exam: no rashes or lesions noted Neuro General: patient oriented x3 Extrem General: No clubbing, No cyanosis and Yes edema Office Procedures Cardiac Device Check Cardiac Device Check Details: Dual-chamber Medtronic pacemaker in place. Programmed in MVP mode with rate response at 60 beats per minute. Ventricular pacing 100% of time. Episodes of atrial fibrillation noted with total burden of 1.1% mostly happening in September. Patient active. Atrial pacing thresholds excellent and reprogrammed to enhance battery life. Ventricular pacing thresholds adequate. Atrial sensing is adequate. Pacing lead impedance is stable. Battery life is excellent at 12 years [id number] Cardiac Device Check, pacemaker dual lead Procedure code (CPT) selection complete Assessment & Plan Assessment & Plan (1) Cardiac pacemaker in situ: Comment: Medtronic dual-chamber pacemaker placed, for postprocedure complete heart block Code(s): Z95.0 - Presence of cardiac pacemaker Category: Medical Plan: Cardiac pacemaker in-situ for post valve replacement complete heart block. Pacemaker is working well and patient is pacer dependent. Complains of some symptoms of fatigue which could be due to persistent RV pacing although there is no reduction overall LV systolic function. Also could be related to aging. Encouraged to continue to participate in physical activity as tolerated. (2) Status post transcatheter aortic valve replacement (TAVR) using bioprosthesis: Comment: 23 mm Evolut valve. Mean gradient of 12 mmHg postprocedure Code(s): Z95.3 - Presence of xenogenic heart valve Category: Medical Plan: Status post transcatheter aortic valve replacement, working well clinically as well as by recent echocardiogram. Continue full oral anticoagulation, currently on Eliquis 5 mg b.i.d.. SBE prophylaxis as per ACC/[place] guidelines. Continue aggressive risk factor modification. (3) PAF (paroxysmal atrial fibrillation): Code(s): I48.0 - Paroxysmal atrial fibrillation Category: Medical Plan: Paroxysmal atrial fibrillation without any overt symptoms at this point time with low burden. Will continue monitor by pacer telemetry. Continue metoprolol therapy. Avoidance of stimulants was discussed. Does not require any antiarrhythmic drug therapy at this point time unless she is persistent symptomatic atrial fibrillation. Continue full oral anticoagulation, currently on Eliquis 5 mg b.i.d.. Semi annual renal function test should be pursued. Will follow up in the clinic in 6 months time, sooner p.r.n.. Thank you for allowing me to partake in her care Orders: Orders Basic Metabolic Panel Today I48.0 - Paroxysmal atrial fibrillation Coding Level of Care Code Est Pt Level 4 (67576) Diagnoses Cardiac pacemaker in situ Z95.0 Status post transcatheter aortic valve replacement (TAVR) using bioprosthesis Z95.3 PAF (paroxysmal atrial fibrillation) I48.0 CPT Codes Cardiac Device Check - Cardiac Device 2: 07609-[id number] Cardiac Device Check, pacemaker dual lead ([id number])
== END 2023-10-18 14:15 | disposition home or self-care (01) ==
PROVIDERS: PCP Internal Medicine; Visit Provider Internal Medicine Cardiovascular Disease
DX: I48.0 Paroxysmal atrial fibrillation (principal); Z95.0 Presence of cardiac pacemaker; Z95.3 Presence of xenogenic heart valve
CPT/HCPCS: 93280; 99214

== ENCOUNTER 2023-10-18 13:43 | Outpatient (REF) | payer MEDICARE, SELFPAY ==
[2021-12-15 06:48] VITALS: BP 134/60; BP 138/62; BP 140/66; BMI 31.4
[2023-10-18 15:50] LABS: Anion Gap 16 (12-20); Blood Urea Nitrogen 30 mg/dL (9-16); Calcium 9.7 mg/dL (8.4-10.2); Carbon Dioxide 30 mmol/L (22-29); Chloride 104 mmol/L (96-108); Estimated Glomerular Filt Rate 33; Glucose Random 99 mg/dL (60-115); Potassium 4.2 mmol/L (3.3-5.1); Sodium 146 mmol/L (135-145)
== END 2023-10-18 13:44 | disposition home or self-care (01) ==
LOC: HO.LAB 13:43
PROVIDERS: PCP Internal Medicine; Visit Provider Internal Medicine Cardiovascular Disease
DX: I48.0 Paroxysmal atrial fibrillation (principal); Z95.0 Presence of cardiac pacemaker; Z95.3 Presence of xenogenic heart valve
CPT/HCPCS: 36415; 80048; 93280; 99212

== ENCOUNTER 2023-11-07 11:03 | Outpatient (REF) | payer MEDICARE, SELFPAY ==
[2021-12-15 06:48] VITALS: BP 134/60; BP 138/62; BP 140/66; BMI 31.4
[2023-11-07 12:47] LABS: Anion Gap 17 (12-20); Blood Urea Nitrogen 29 mg/dL (9-16); Calcium 9.8 mg/dL (8.4-10.2); Carbon Dioxide 30 mmol/L (22-29); Chloride 103 mmol/L (96-108); Estimated Glomerular Filt Rate 34; Glucose Random 142 mg/dL (60-115); Potassium 4.6 mmol/L (3.3-5.1); Sodium 145 mmol/L (135-145)
== END 2023-11-07 11:04 | disposition home or self-care (01) ==
LOC: HO.LAB 11:03
PROVIDERS: PCP Internal Medicine; Visit Provider Internal Medicine Cardiovascular Disease
DX: I10 Essential (primary) hypertension (principal); I48.0 Paroxysmal atrial fibrillation
CPT/HCPCS: 36415; 80048

== ENCOUNTER 2023-12-05 11:27 | Outpatient (REF) | payer MEDICARE, SELFPAY ==
[2021-12-15 06:48] VITALS: BP 134/60; BP 138/62; BP 140/66; BMI 31.4
[2023-12-05 12:33] LABS: B Type Natriuretic Peptide 83 pg/mL (<100)
[2023-12-05 12:42] LABS: Anion Gap 16 (12-20); Blood Urea Nitrogen 29 mg/dL (9-16); Calcium 9.9 mg/dL (8.4-10.2); Carbon Dioxide 29 mmol/L (22-29); Chloride 105 mmol/L (96-108); Estimated Glomerular Filt Rate 35; Glucose Random 124 mg/dL (60-115); Potassium 4.7 mmol/L (3.3-5.1); Sodium 145 mmol/L (135-145)
== END 2023-12-05 11:28 | disposition home or self-care (01) ==
LOC: HO.LAB 11:27
PROVIDERS: PCP Internal Medicine; Visit Provider Internal Medicine Cardiovascular Disease
DX: R06.02 Shortness of breath (principal); I48.0 Paroxysmal atrial fibrillation; I10 Essential (primary) hypertension
CPT/HCPCS: 36415; 80048; 83880

== ENCOUNTER → 2024-01-07 23:59 | Outpatient (BNV) | payer MEDICARE, SELFPAY ==
[2021-12-15 06:48] VITALS: BP 134/60; BP 138/62; BP 140/66; BMI 31.4
--- NOTE | 2024-01-11 14:03 | MHC.OFFVIS ---
Intake Visit Reasons: Remote device check- Medtronic Allergies aspirin Allergy (Unknown, Verified 09/17/21 14:46) asthma Egg Allergy (Unknown, Uncoded 09/17/21 14:46) Unknown Fluarix Allergy (Unknown, Uncoded 09/17/21 14:46) Unknown NSAIDs Allergy (Unknown, Uncoded 09/17/21 14:46) shortness of breath Shellfish Allergy (Unknown, Uncoded 09/17/21 14:46) Unknown PFSH Medical History Cardiac pacemaker in situ Aortic stenosis PAF (paroxysmal atrial fibrillation) HTN (hypertension) Surgical History Status post transcatheter aortic valve replacement (TAVR) using bioprosthesis S/P cardiac cath History of carpal tunnel release Hx of knee surgery Hx of colonoscopy Hx of breast surgery History of tonsillectomy and adenoidectomy Hx of total hysterectomy Hx of cholecystectomy Family History Father CVD (cardiovascular disease) Mother No problems noted. Sister CVD (cardiovascular disease) Social History Patient Tobacco Use Status: Never used Tobacco Office Procedures Cardiac Device Check Cardiac Device Check Details: Remote pacemaker report generated 01/07/2024. Pacemaker function is adequate. Minimal burden of atrial fibrillation [place] [id number] Cardiac Device Interrogation, pacemaker Procedure code (CPT) selection complete Assessment & Plan Assessment & Plan (1) Cardiac pacemaker in situ: Comment: Medtronic dual-chamber pacemaker placed, for postprocedure complete heart block Code(s): Z95.0 - Presence of cardiac pacemaker Category: Medical Plan: See above Coding Level of Care Code Procedure Only Diagnoses Cardiac pacemaker in situ Z95.0 CPT Codes Cardiac Device Check - Cardiac Device 12: [id number] Cardiac Device Interrogation, pacemaker ([id number])
== END ==
PROVIDERS: PCP Internal Medicine; Visit Provider Internal Medicine Cardiovascular Disease
DX: I44.2 Atrioventricular block, complete (principal); Z95.0 Presence of cardiac pacemaker
CPT/HCPCS: 93294

== ENCOUNTER 2024-03-16 11:10 | Outpatient (REF) | payer MEDICARE, SELFPAY ==
[2021-12-15 06:48] VITALS: BP 134/60; BP 138/62; BP 140/66; BMI 31.4
== END 2024-03-16 11:11 | disposition home or self-care (01) ==
LOC: HO.LAB 11:10
PROVIDERS: PCP Internal Medicine; Visit Provider Internal Medicine
DX: Z13.89 Encounter for screening for other disorder (principal)

== ENCOUNTER 2024-03-17 07:24 | Outpatient (REF) | payer MEDICARE, SELFPAY ==
[2021-12-15 06:48] VITALS: BP 134/60; BP 138/62; BP 140/66; BMI 31.4
[2024-03-17 07:43] LABS: MANUAL DIFF FLAG NO
[2024-03-17 07:59] LABS: Basophils Absolute Auto 0.1 X10*3/uL (0.0-0.2); Basophils Percent Auto 0.9 % (0-2); Eosinophils Absolute Auto 0.2 X10*3/uL (0.0-0.4); Eosinophils Percent Auto 2.7 % (0-4); Hematocrit 36.4 % (37.0-47.0); Hemoglobin 12.2 g/dl (12.0-16.0); Imm Gran Abs Auto 0.01 X10*3/uL (0.00-0.03); Imm Gran Pct Auto 0.1 % (0.0-0.4); Lymphocytes Absolute Auto 1.8 X10*3/uL (1.2-4.9); Lymphocytes Percent Auto 26.7 % (20-40); Mean Corpuscular HGB Conc 33.5 g/dl (31.0-35.0); Mean Corpuscular Hemoglobin 32.7 pg (27.0-33.0); Mean Corpuscular Volume 97.6 fL (80.0-98.0); Mean Platelet Volume 11.2 fL (9.4-12.3); Monocytes Absolute Auto 0.6 X10*3/uL (0.1-1.2); Monocytes Percent Auto 8.8 % (2-11); Neutrophils Absolute Auto 4.1 x10*3/uL (2.0-8.3); Neutrophils Percent Auto 60.8 % (45-73); Platelet Count 153 X10*3/uL (160-400); Red Blood Count 3.73 X10*6/uL (4.20-5.50); Red Cell Distribution Width 12.3 % (11.0-16.0); White Blood Count 6.8 X10*3/uL (4.8-10.8)
[2024-03-17 08:20] LABS: Alanine Aminotransferase 18 U/L (0-31); Albumin Level 4.2 g/dL (3.5-5.0); Alkaline Phosphatase 61 U/L (39-117); Anion Gap 13 (12-20); Aspartate Amino Transferase 22 U/L (5-31); Blood Urea Nitrogen 37 mg/dL (9-16); Calcium 9.6 mg/dL (8.4-10.2); Carbon Dioxide 29 mmol/L (22-29); Chloride 106 mmol/L (96-108); Cholesterol 239 mg/dL (<200); Estimated Glomerular Filt Rate 36; Glucose Fasting 101 mg/dL (60-99); HDL Cholesterol 64 mg/dL (>40); LDL Cholesterol Calculated 138 mg/dL (<100); Potassium 4.1 mmol/L (3.3-5.1); Sodium 144 mmol/L (135-145); Total Protein 6.9 g/dL (6.5-8.0); Triglycerides 185 mg/dL (<150)
== END 2024-03-17 07:25 | disposition home or self-care (01) ==
LOC: HO.LAB 07:24
PROVIDERS: PCP Internal Medicine; Visit Provider Internal Medicine
DX: I48.0 Paroxysmal atrial fibrillation (principal); E78.00 Pure hypercholesterolemia, unspecified; I10 Essential (primary) hypertension
CPT/HCPCS: 36415; 80053; 80061; 85025

== ENCOUNTER → 2024-04-06 23:59 | Outpatient (BNV) | payer MEDICARE, SELFPAY ==
[2021-12-15 06:48] VITALS: BP 134/60; BP 138/62; BP 140/66; BMI 31.4
--- NOTE | 2024-04-24 13:57 | MHC.OFFVIS ---
Intake Visit Reasons: Remote device check- Medtronic Allergies aspirin Allergy (Unknown, Verified 09/17/21 14:46) asthma Egg Allergy (Unknown, Uncoded 09/17/21 14:46) Unknown Fluarix Allergy (Unknown, Uncoded 09/17/21 14:46) Unknown NSAIDs Allergy (Unknown, Uncoded 09/17/21 14:46) shortness of breath Shellfish Allergy (Unknown, Uncoded 09/17/21 14:46) Unknown PFSH Medical History Cardiac pacemaker in situ Aortic stenosis PAF (paroxysmal atrial fibrillation) HTN (hypertension) Surgical History Status post transcatheter aortic valve replacement (TAVR) using bioprosthesis S/P cardiac cath History of carpal tunnel release Hx of knee surgery Hx of colonoscopy Hx of breast surgery History of tonsillectomy and adenoidectomy Hx of total hysterectomy Hx of cholecystectomy Family History Father CVD (cardiovascular disease) Mother No problems noted. Sister CVD (cardiovascular disease) Social History Patient Tobacco Use Status: Never used Tobacco Office Procedures Cardiac Device Check Cardiac Device Check Details: Remote pacemaker report generated 04/06/2024. Pacemaker function is adequate. Ventricular pacing 99% of time [id number] Cardiac Device Interrogation, pacemaker Procedure code (CPT) selection complete Assessment & Plan Assessment & Plan (1) Cardiac pacemaker in situ: Comment: Medtronic dual-chamber pacemaker placed, for postprocedure complete heart block Code(s): Z95.0 - Presence of cardiac pacemaker Category: Medical Plan: See above Coding Level of Care Code Procedure Only Diagnoses Cardiac pacemaker in situ Z95.0 CPT Codes Cardiac Device Check - Cardiac Device 12: [id number] Cardiac Device Interrogation, pacemaker ([id number])
== END ==
PROVIDERS: PCP Internal Medicine; Visit Provider Internal Medicine Cardiovascular Disease
DX: I44.2 Atrioventricular block, complete (principal); Z95.0 Presence of cardiac pacemaker
CPT/HCPCS: 93294

== ENCOUNTER 2024-05-15 10:00 | Outpatient (REF) | payer MEDICARE, SELFPAY ==
[2021-12-15 06:48] VITALS: BP 134/60; BP 138/62; BP 140/66; BMI 31.4
--- NOTE | ~2024-05-15 | MM_ITS ---
EXAMINATION: MM SCREENING DIGITAL BREAST TOMOSYNTHESIS, BILATERAL CLINICAL INFORMATION: Screening. Asymptomatic. COMPARISON: Mammography: Comparison is made with available priors TECHNIQUE: Digital breast mammography with tomosynthesis is performed in both the craniocaudal and mediolateral oblique views along with computer-aided detection (CAD). FINDINGS: There are scattered areas of fibroglandular density (ACR BI-RADS breast composition Category b). Pacemaker overlies and obscures the superior posterior left breast on MLO view. There are no significant masses, abnormal calcifications, or other abnormalities. MM/MM tomosynthesis screening BI IMPRESSION: No mammographic evidence of malignancy. ASSESSMENT: BI-RADS BI-RADS 2 - Benign Findings RECOMMENDATION: Routine annual mammography screening. 1 year F/U This examination should not preclude the clinical evaluation of a suspicious palpable abnormality. This patient's information was entered into a reminder system with a target due date for their next mammogram. Electronically signed by: Kay Farr DO 05/21/2024 10:42 AM GEORGE
--- NOTE | ~2024-05-15 | MM_ITS ---
EXAMINATION: BONE DENSITOMETRY CLINICAL INDICATION: Menopause. COMPARISON: Previous BD dated 11/15/2017 and baseline BD dated 02/04/2011. TECHNIQUE: Using a Resourcing Edge DXA System (software version: 13.1) manufactured by [employer] for Google Glass, dual-energy x-ray absorptiometry was performed of the lumbar spine and left hip. The images are of good technical quality. Summary results are attached. FINDINGS: LEFT FEMUR, NECK: Current: BMD 0.733 g/cm2, Z-score 0.0, T-score -2.2, osteopenia. Prior: BMD 0.712 g/cm2. Baseline: BMD 0.705 g/cm2. LEFT FEMUR, TOTAL: Current: BMD 0.710 g/cm2, Z-score -0.3, T-score -2.4, osteopenia, 0.4% decrease from previous, 6.3% decrease from baseline (<5% change is not significant). Prior: BMD 0.713 g/cm2. Baseline: BMD 0.758 g/cm2. AP SPINE L1-L4: Current: BMD 1.073 g/cm2, Z-score 0.8, T-score -0.9, normal, 3.3% increase from previous, 6.7% increase from baseline (<5% change is not significant). Prior: BMD 1.039 g/cm2. Baseline: BMD 1.006 g/cm2. IDENTIFIED RISK FACTORS: Early menopause, glucocorticoids (chronic), hysterectomy, bilateral oophorectomy, secondary osteoporosis. HISTORY OF FRACTURE: None listed. MEDICATIONS: None listed. MM/XR DEXA axial skeleton IMPRESSION: 1. DIAGNOSIS: Osteopenia based on the lowest T-score value of -2.4 in the total femur applying World Health Organization criteria. 2. 10-YEAR FRACTURE RISK PREDICTION, FRAX: Major osteoporotic fracture (clinical spine, forearm, hip or shoulder) 24.6%. Hip fracture 9.1%. 3. Treatment Recommendations: NOF guidelines recommend consideration for treatment in postmenopausal women and men age 50 and older presenting with the following: -A hip or vertebral (clinical or morphometric) fracture. -T-score less than or equal to -2.5 at the femoral neck or spine after appropriate evaluation to exclude secondary causes. -Low bone mass at the hip or spine and a 10-year fracture probability by FRAX of greater than or equal to 3% for hip fracture or greater than or equal to 20% for major osteoporotic fracture based on the [place] adapted WHO algorithm. 4. Other Recommendations: All treatment decisions require clinical judgment and consideration of individual patient factors, including patient preferences, comorbidities, previous drug use, risk factors not captured in the FRAX model (e.g. frailty, falls, vitamin D deficiency, increased bone turnover, interval significant decline in bone density) and possible under or overestimation of fracture risk by FRAX. Additional medical evaluation for secondary cause of low bone mineral density may be appropriate. FUTURE SCAN RECOMMENDATION: People with diagnosed cases of osteoporosis or at high risk for fracture should have regular bone mineral density tests. For patients eligible for Medicare, routine testing is allowed once every 2 years. The testing frequency can be increased to one year for patients who have rapidly progressing disease, those who are receiving or discontinuing medical therapy to restore bone mass, or have additional risk factors. Electronically signed by: Marnie Gonzales MD 05/15/2024 02:39 PM GEOR[facility] BUSH
--- OUTSIDE RECORDS SUMMARY | 2024-05-16 19:41 | XMS_ITS | Continuity of Care Document ---
Author Organization [facility] Address [address] [place] [address] Care Team Providers Care Boat Cleaner Name Role Phone Reinaldo Escobedo MD Primary Care Physician [phone] [id number] Date[facility]s): [facility]/07/24 - 05/09/24 [facility] [address] [place] [address] Discharge Disposition: A-D/C Home Attending Physician: Serge Saldana MD Admitting Physician: Serge Saldana MD Referring Physician: Reinaldo Escobedo MD Encounter Type: Disch Recurring OP Allergies, Adverse Reactions, Alerts Substance Criticality Severity Reaction Reaction Severity Status aspirin hx asthma Active shellfish throat swells Active Fluarix allergy to eggs Acti ve NSAIDs Active Medications amoxicillin 500 mg oral capsule 4 capsule = 2,000 mg, By Mouth, Once, Take 4 capsules by mouth once, 1 hour prior to dental cleaning/procedure, # 4 capsule, 1 Refills, Soft Stop, 09/11/21 3:53:00 PM EDT, [id number], Partial fill upon patient request if the prescription is for a schedule II opioid drug., 160, cm, 09/11/21 15:25:00 EDT, Height, 76.7, kg, 08/29/21 16:30:00 EDT, Dry Weight Start Date: 09/11/21 Status: Ordered Quantity: 4.0 Unit: capsule Repeat number: 2 Eliquis 5 mg oral tablet 1 tablet = 5 mg, By Mouth, 2 times a day, # 60 tablet, 0 Refills, Maintenance, 08/15/17 10:41:55 AM EDT, Tablet Start Date: 08/15/17 Status: Ordered Quantity: 60.0 Unit: tablet Repeat number: 1 lisinopril 2.5 mg oral tablet 2.5 mg, 1, tablet, By Mouth, Daily, Refills 0, Maintenance, 04/28/21 10:29:00 AM EST, Partial fill upon patient request if the prescription is for a schedule II opioid drug. Start Date: 04/28/21 Status: Ordered Repeat number: 1 metoprolol 25 mg oral tablet 25 mg, 1, tablet, By Mouth, Daily, Refills 0, Maintenance, 02/26/19 9:49:49 AM EDT Start Date: 02/26/19 Status: Ordered Repeat number: 1 Multivitamin 1 tablet, By Mouth, Daily, 0 Refills, Maintenance, 04/28/21 10:29:00 AM EST, Partial fill upon patient request if the prescription is for a schedule II opioid drug. Start Date: 04/28/21 Status: Ordered Repeat number: 1 Rosuvastatin = 5 mg, By Mouth, Daily, 0 Refills, Maintenance, 02/26/19 9:49:21 AM EDT Start Date: 02/26/19 Status: Ordered Repeat number: 1 torsemide 20 mg oral tablet TAKE 1 TABLET BY MOUTH TWICE DAILY Start Date: 10/06/22 Status: Ordered Repeat number: 1 Vitamin D3 1000 intl units oral capsule 1 capsule = 1,000 International_Units, By Mouth, Daily, # 100 capsule, 0 Refills, Maintenance, 03/16/15 2:54:32 AM EDT, Capsule Start Date: 03/16/15 Status: Ordered Quantity: 100.0 Unit: capsule Repeat number: 1 Problem List Condition Confirmation Course Effective Dates Status Health St atus Informant Chest pain Confirmed Active Dyspnea on exertion Confirmed Active Obese class I Confirmed Active Severe aortic stenosis Confirmed Active CHF NYHA class III Confirmed Active Vital Signs Most recent to oldest [Reference Range]: 1 Height 160 cm (03/09/24 12:54 PM) Weight 82.5 kg (03/09/24 12:54 PM) Oxygen Saturation [94-100 %] 100 % (03/09/24 12:54 PM) Pulse Rate [55-90 bpm] 86 bpm (03/09/24 12:54 PM) Body Mass Index [18.5-24.99 kg/m2] 32.23 kg/m2 *>HHI* (03/09/24 12:54 PM) Blood Pressure [90-138/55-84 mm Hg] 147/ 62mm Hg *H* (03/09/24 12:54 PM) Temperature [96.8-100.4 DegF] 97.5 DegF (03/09/24 12:54 PM) Mode of Delivery (Oxygen) Room air (03/09/24 12:54 PM) Blood pressure sites Arm, right (03/09/24 12:54 PM) Temperature Route Oral (03/09/24 12:54 PM) Dry Weight 82.5 kg (03/09/24 12:54 PM) Weight Obtained Via Standing scale (03/09/24 12:54 PM) Dry Weight Obtained Via Standing scale (03/09/24 12:54 PM) Social History Social History Type Response Smoking Status Never smoker entered on: 01/08/16 Sex Sex Representation Female (finding) Patient Care team information Care Team Personnel Name: Reinaldo Escobedo MD Position: [facility] Physician - Primary Care Member Role: PCP Address: [address] [place] [address] Telecom: Name: Jose Kathleen RN Position: [facility] RN Member Role: Primary Care Nurse Name: Kelsea Aranda RN Position: [facility] SN RN Member Role: Primary Care Nurse Name: Alessia Hinton Position: [facility] Mine Safety Engineer Member Role: Lifetime Consulting Physician Name: Asya Motley RN Position: [facility] RN Member Role: Primary Care Nurse Name: Natalia Lopez RN Position: [facility] RN Member Role: Primary Care Nurse Name: Daxa Perrin RN Position: [facility] RN Member Role: Primary Care Nurse Name: Kajal Paige RN Position: [facility] Onco RN Member Role: Primary Care Nurse Care Team Related Persons Name: KAYLIE SEBASTIAN Name: DAVID SEBASTIAN Insurance Providers Guarantor name: SHMUEL SEBASTIAN Health Plan Information #: 2 Payer: MEDEX Member Number: [id number] Policy Number: NA Group Number: [id number] Health Plan Information #: 1 Payer: MEDICARE PART B OUTPT Member Number: [id number] Policy Number: NA Group Number: [id number]
== END 2024-05-15 10:01 | disposition home or self-care (01) ==
LOC: HO.MAMMO 10:00
PROVIDERS: PCP Internal Medicine; Visit Provider Internal Medicine
DX: Z12.31 Encounter for screening mammogram for malignant neoplasm of breast (principal); Z13.820 Encounter for screening for osteoporosis; Z78.0 Asymptomatic menopausal state; M85.80 Other specified disorders of bone density and structure, unspecified site
CPT/HCPCS: 77063; 77067; 77080

== ENCOUNTER → 2024-05-15 10:15 | Outpatient (BNV) | payer MEDICARE, SELFPAY ==
[2021-12-15 06:48] VITALS: BP 134/60; BP 138/62; BP 140/66; BMI 31.4
== END ==
PROVIDERS: PCP Internal Medicine; Visit Provider Internal Medicine
DX: Z12.31 Encounter for screening mammogram for malignant neoplasm of breast (principal)
CPT/HCPCS: 77063; 77067

== ENCOUNTER 2024-09-05 13:18 | Outpatient (REF) | payer MEDICARE, SELFPAY ==
[2021-12-15 06:48] VITALS: BP 134/60; BP 138/62; BP 140/66; BMI 31.4
[2024-09-05 15:11] LABS: Anion Gap 11 (12-20); Blood Urea Nitrogen 36 mg/dL (9-16); Calcium 9.6 mg/dL (8.4-10.2); Carbon Dioxide 30 mmol/L (22-29); Chloride 107 mmol/L (96-108); Estimated Glomerular Filt Rate 39; Glucose Random 96 mg/dL (60-115); Potassium 4.6 mmol/L (3.3-5.1); Sodium 143 mmol/L (135-145)
--- OUTSIDE RECORDS SUMMARY | 2024-09-05 16:48 | XMS_ITS | Clinical Summary ---
Author Organization [facility] Address [address] [place] [address] Care Team Providers Care Government Relations Manager Name Role Phone Unavailable Primary Care Provider [...] Name Comments Heart disease Father Other Mother Pickaway's disea se Other Sister PVD Relation Name [...]
== END 2024-09-05 13:19 | disposition home or self-care (01) ==
LOC: HO.LAB 13:18
PROVIDERS: PCP Internal Medicine; Visit Provider Internal Medicine Cardiovascular Disease
DX: Z45.018 Encounter for adjustment and management of other part of cardiac pacemaker (principal); I48.0 Paroxysmal atrial fibrillation; Z95.3 Presence of xenogenic heart valve
CPT/HCPCS: 36415; 80048; 93280; 99212

== ENCOUNTER 2024-09-05 13:18 | Outpatient (AMB) | payer MEDICARE, SELFPAY ==
[2021-12-15 06:48] VITALS: BP 134/60; BP 138/62; BP 140/66; BMI 31.4
--- NOTE | 2024-09-05 13:26 | A.OFFVIS_ITS ---
Vital Signs 09/05/24 13:27 Height 5 ft 3 in Weight 182 lb 15.739 oz BMI 32.4 BP 120/74 Blood Pressure Location Lt brachial Position Sitting Pulse 71 Intake Visit Reasons: 6 m follow up Intake Note: 6 month follow-up with [employer] check Thaw Shed Heater Tender Required: No Allergies aspirin Allergy (Unknown, Verified 09/17/21 14:46) asthma Egg Allergy (Unknown, Uncoded 09/17/21 14:46) Unknown Fluarix Allergy (Unknown, Uncoded 09/17/21 14:46) Unknown NSAIDs Allergy (Unknown, Uncoded 09/17/21 14:46) shortness of breath Shellfish Allergy (Unknown, Uncoded 09/17/21 14:46) Unknown Medication List - Last Reconciled 09/05/24 by Glen Jewell MD apixaban (Eliquis) 5 mg PO BID lisinopril 2.5 mg PO DAILY metoprolol succinate ER 25 mg PO DAILY prednisone 1 mg PO ONCE rosuvastatin 5 mg PO DAILY 90 days torsemide 20 mg PO DAILY HPI Comments Details: Mandy comes for follow-up. She has not been exercising for walks. Denies any worsening symptoms of shortness of breath. She does get symptoms of fatigue. No prolonged palpitation irregular heartbeat. She denies any orthopnea, PND, leg edema. No lightheadedness, syncope. Exertional chest pain. Takes all her medications including a blood thinners. [facility] Medical History Cardiac pacemaker in situ Aortic stenosis PAF (paroxysmal atrial fibrillation) HTN (hypertension) Surgical History Status post transcatheter aortic valve replacement (TAVR) using bioprosthesis S/P cardiac cath History of carpal tunnel release Hx of knee surgery Hx of colonoscopy Hx of breast surgery History of tonsillectomy and adenoidectomy Hx of total hysterectomy Hx of cholecystectomy Family History Father CVD (cardiovascular disease) Mother No problems noted. Sister CVD (cardiovascular disease) Social History Patient Tobacco Use Status: Never used Tobacco Review of Systems Const Denies chills, Denies fatigue, Denies fever(s), Denies frequent falls, Denies weakness, Denies weight gain and Denies weight loss ENT Denies dizziness Card Denies chest pain, Denies leg edema, Denies lightheadedness, Denies palpitations, Denies dyspnea, Denies dyspnea on exertion, Denies orthopnea and Denies other (loss of consciousness) Resp Denies cough, Denies dyspnea and Denies dyspnea on exertion GI Denies hematochezia and Denies change in stool character Musc Denies abnormal gait, Denies muscle weakness, Denies numbness, Denies radiating pain into limb and Denies tingling Neuro Denies abnormal gait, Denies dizziness, Denies frequent falls, Denies numbness, Denies tingling and Denies weakness Endo Denies fatigue and Denies palpitations Physical Exam Vital Signs: Last Vital Signs Pulse 71 09/05/24 13:27 BP 120/74 09/05/24 13:27 BMI result Body Mass Index 32.4 Const General: cooperative, comfortable, no acute distress, alert and awake Nutritional Appearance: overweight Orientation/consciousness: patient oriented x3 Limitations: no limitations Neck Neck: Yes trachea midline, Yes supple and Yes no JVD (Mild abdominal jugular reflux) Resp Effort & Inspection: normal respiratory effort Auscultation: clear to auscultation bilaterally Cardio Jugular venous distension: no JVD Palpation: normal PMI Rate: regular rate Rhythm: regular rhythm Heart sounds: S1 normal heart sound present, S2 abnormal, no click, no gallops, Murmur heart sound present systolic early and Other heart sounds present (S4 present) Peripheral pulses: Peripheral pulses 2+ throughout GI Auscultation: normal bowel sounds Skin General skin exam: no rashes or lesions noted Neuro General: patient oriented x3 Extrem General: No clubbing, No cyanosis and Yes edema Office Procedures Cardiac Device Check Cardiac Device Check Details: Dual-chamber Medtronic pacemaker in place. Programmed in DDDR at 60 beats per minute. Ventricular lead pacer dependent 100% time. No episodes of atrial fibrillation noted in the last 6 months. Atrial ventricular pacing thresholds excellent and reprogrammed to enhance battery life. Atrial sensing was adequate. Pacing lead impedance is stable. Battery life is 10.6 years [address]2450-UP Cardiac Device Check, pacemaker dual lead Procedure code (CPT) selection complete Assessment & Plan Assessment & Plan (1) Status post transcatheter aortic valve replacement (TAVR) using bioprosthesis: Comment: 23 mm Evolut valve. Mean gradient of 12 mmHg postprocedure Code(s): Z95.3 - Presence of xenogenic heart valve Category: Surgical Plan: Status post transcatheter aortic valve replacement for severe aortic stenosis. Clinically working well. Will obtain echocardiogram near future. Continue Eliquis therapy. SBE prophylaxis as per ACC/aha guidelines. (2) Cardiac pacemaker in situ: Comment: Medtronic dual-chamber pacemaker placed, for postprocedure complete heart block Code(s): Z95.0 - Presence of cardiac pacemaker Category: Medical Plan: Cardiac pacemaker in-situ, working well. Reprogrammed for adequate function. Will follow remotely every 3 months. Follow up in the clinic in 6 months time. She is ventricularly pacer dependent. (3) PAF (paroxysmal atrial fibrillation): Code(s): I48.0 - Paroxysmal atrial fibrillation Category: Medical Plan: Paroxysmal atrial fibrillation without any recent episodes with no symptoms. Continue full oral anticoagulation, currently on Eliquis 5 mg b.i.d.. Semi annual renal function test should be pursued. Continue metoprolol therapy. Avoidance of stimulants was discussed. No indication for antiarrhythmic drug therapy at this point time. Will follow up in the clinic in 6 months time, sooner p.r.n.. Thank you for allowing me to partake in her care Orders: Orders CA echo transthoracic complete Today Z95.3 - Presence of xenogenic heart valve Basic Metabolic Panel Today I48.0 - Paroxysmal atrial fibrillation Medications: Refilled apixaban (Eliquis) 5 mg PO BID 180 tabs 1RF I48.0 - Paroxysmal atrial fibrillation Coding Level of Care Code Est Pt Level 4 (15715) Complex EM visit Add On G2211 Diagnoses Status post transcatheter aortic valve replacement (TAVR) using bioprosthesis Z95.3 Cardiac pacemaker in situ Z95.0 PAF (paroxysmal atrial fibrillation) I48.0 CPT Codes Cardiac Device Check - Cardiac Device 2: 30343-MM Cardiac Device Check, pacemaker dual lead ([id number])
[2024-09-05 13:27] VITALS: BP 120/74; PULSE 71; BMI 32.4
--- OUTSIDE RECORDS SUMMARY | 2024-09-05 15:54 | XMS_ITS | Clinical Summary ---
Author Organization [facility] Address [address] [place] [address] Care Team Providers Care Conveyancer Name Role Phone Unavailable Primary Care Provider Unavailabl e Allergies Active Allergy Reactions Criticality Noted Date Comments Aspirin Shortness Of Breath High 09/28/2017 Egg-Derived Products Other (See Comments) 09/28 Nsaids Shortness Of Breath High 09/28/2017 Potato Hives 09/28/2017 Medications Medication Sig Dispensed Refills Start Date End Date Status cholecalciferol (VITAMIN D3) 1000 units tablet Take 1,000 Units by mouth daily. 0 Active apixaban (ELIQUIS) 5 MG TABS tablet Take 1 tablet (5 mg total) by mouth every 12 (twelve) hours. 60 tablet 11 11/01/2017 Active lisinopril (PRINIVIL,ZESTRIL) tablet 2.5 mg Take 1 tablet (2.5 mg total) by mouth daily. 90 tablet 3 11/01/2017 Active rosuvastatin (CRESTOR) tablet 5 mg Take 5 mg by mouth daily. 0 Active predniSONE (DELTASONE) 1 MG tablet 1 05/18/2018 Active metoprolol succinate (TOPROL-XL) 24 hr tablet 25 mg TK 1 T PO QD 3 11/22/2018 Active Active Problems Problem Noted Date Diagnosed Date PMR (polymyalgia rheumatica) 02/16/2018 Current chronic use of systemic steroids 018 Urgency incontinence 09/28/2017 Bilateral carotid artery disease 07/07/2016 Overview: US Carotid < 50% bilat Anticoagulated Overview: Eliquis Osteopenia Overview: With L1 compression Fx 08/2015 DEXA: T-2.4 hip FRAX 24.7%/7.5% Aortic stenosis, mild Overview: 03/2015 ECHO: Mild-mod, 07/2016 Mild , Mild AI EF 60-65% Hypertension Hyperlipidemia Family History Medical History Relation Name Comments Heart disease Father Other Mother Lagrange's disea se Other Sister PVD Relation Name Status Comments Father Maternal Grandfather Maternal Grandmother Mother Paternal Grandfather Paternal Grandmother Sister Alive Social History Tobacco Use Types Packs/Day Years Used Date Smoking Tobacco: Never Smokeless Tobacco: Never Alcohol Use Standard Drinks/Week Comments Yes 0 (1 standard drink = 0.6 oz pur e alcohol) rare Sex and Gender Information Value Date Recorded Sex Assigned at Not on file Gender Identity Not on file Sexual Orientation Not on file Last Filed Vital Signs Vital Sign Reading Time Taken Comments Blood Pressure 140/70 12/24/2019 11:27 AM EDT Pulse 72 12/24/2019 10:47 AM EDT Temperature 36.7 ??C (98 ??F) 12/24/2019 10:47 AM EDT Respiratory Rate 14 11/27/2018 12:49 PM EDT Oxygen Saturation 96% 12/24/2019 10:47 AM EDT Inhaled Oxygen Concentration - - Weight 76.2 kg (168 lb) 12/24/2019 10:47 AM EDT Height 160 cm (5' 3 ) 12/24/2019 10:47 AM EDT Body Mass Index 29.76 12/24/2019 10:47 AM EDT Plan of Treatment Health Maintenance Due Date Last Done Comments COVID-19 Vaccine (#1) 1940 Pneumococcal Vaccine (1 of 1 - PCV) 2004 RSV Adult > 60+ Yrs or (1 - 1-dose 75+ series) 2014 Osteoporosis Screening (DEXA Scan) 11/16/2019 11/15/2017, 08/05/2015 Shingrix-Zoster Vaccine (2 of 2) 02/18/2020 12/24/2019 (Declined) BMI Counseling 02/24/2021 02/25/2020, 07/, 05/28/2019, Additional history exists Depression Screening 02/24/2021 02/25/2020, 02/25/2020, 02/25/2020, Additional history exists Fall Risk Assessment 02/24/2021 02/25/2020, 02/25/2020, 02/25/2020, Additional history exists Preventative Health Evaluation 02/24/2021 02/25/2020, 02/25/2020, 11/27/2018, Additional history exists DTap / Tdap / Td (2 - Td or Tdap) 03/09/2021 03/09/2011 Influenza Vaccine (#1) 2024 Hepatitis B Vaccines Aged Out No long er eligible based on patient's age to complete this topic RSV Ped < 20 months Aged Out No longe r eligible based on patient's age to complete this topic
== END 2024-09-05 14:05 | disposition home or self-care (01) ==
LOC: HO.HCS 13:18
PROVIDERS: PCP Internal Medicine; Visit Provider Internal Medicine Cardiovascular Disease
DX: Z95.3 Presence of xenogenic heart valve (principal); Z95.0 Presence of cardiac pacemaker; I48.0 Paroxysmal atrial fibrillation
CPT/HCPCS: 93280; 99214; G2211

== ENCOUNTER 2024-09-25 10:52 | Outpatient (AMB) | payer MEDICARE, SELFPAY ==
[2021-12-15 06:48] VITALS: BP 134/60; BP 138/62; BP 140/66; BMI 31.4
[2024-09-25 10:54] VITALS: BP 148/82; PULSE 92; RESP 16; TEMP 36.7; O2SAT 99; BMI 32.8
--- NOTE | 2024-09-25 10:54 | A.OFFPC_ITS ---
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 [place] Allergies aspirin Allergy (Unknown, Verified 09/25/24 10:56) asthma Egg Allergy (Unknown, Uncoded 09/25/24 10:56) Unknown Fluarix Allergy (Unknown, Uncoded 09/25/24 10:56) Unknown NSAIDs Allergy (Unknown, Uncoded 09/25/24 10:56) shortness of breath Shellfish Allergy (Unknown, Uncoded 09/25/24 10:56) Unknown Medication List - Last Reconciled 09/25/24 by Silvia Alva MD apixaban (Eliquis) 5 mg PO BID lisinopril 2.5 mg PO DAILY metoprolol succinate ER 25 mg PO DAILY prednisone 1 mg PO ONCE rosuvastatin 5 mg PO DAILY 90 days torsemide 20 mg PO DAILY Tobacco use date assessed: 09/25/24 Fall risk assessment: No Falls in past year Last assessed Fall Risk: 09/25/24 Dental Screening Dental Screen Date: 09/25/24 Did you have a dental visit in the last 12 months?: Yes Did you have a dental problem in the last 6 months where you did not have access to dental care?: No Was dental information given to patient?: Patient has dentist HPI 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 History - The patient is an 84-year-old female p resenting new patient visit focusing on the management of multiple chronic conditions. - Patient has a history of atrial fibril lation managed with an artificial aortic valve and pacemaker insertion. Seeing Dr. Jewell cardiology [facility] - Aortic stenosis has been treated with valve replacement and remains stable. - Follow-up for osteoarthritis affecting multiple joints, previously managed with prednisone, which the patient finds essential for joint pain relief. Arthritis treatment center - Reports consistent issues with urinary incontinence managed with pads. - History of basal, squamous, and melano ma skin cancers, currently under follow- up care with a automotive painter helper. - Multinodular goiter is currently not f ollowed by an metallurgical tester, no recent ultrasound or assessment, goiter size and function remain unknown. Ultrasound thyroid ordered along with labs - Chronic kidney disease is notable with a glomerular filtration rate of 39, currently under observation. - Patient managed for prediabetes with l ifestyle modifications. - Blood pressure managed with lisinopril and metoprolol, currently stable. - Previous surgeries include bilateral t otal knee replacement, cholecystectomy, and complete hysterectomy. Health Maintenance - Discussed thyroid ultrasound recommend ed for baseline size and location of nodules. - Routine labs needed for thyroid functi on assessment. - Consideration for resuming mammograms based on patient's active status and health, decision pending patient's choice. - Ultrasound and blood tests planned for future clinic visit, will be reminded and scheduled through the clinic. - Encouraged continuation of weight-bear ing exercises, vitamin D and calcium intake for osteopenia. - Anticipatory guidance provided for adán f-examinations for breast cancer detection. Medications - Metoprolol (dose unspecified) - Eliquis (Apixaban) for atrial fibrilla tion - Rosuvastatin for hyperlipidemia - Furosemide for management of fluid ret ention - Lisinopril 2.5 mg for hypertension - Vitamin D and Calcium supplementation for osteopenia - Prednisone for osteoarthritis pain, at a dose of 1 mg, twice daily Social History - Currently , lives with who assists with transportation. - Reports having grown children and gran dchildren. - Previous doctor relocated; patient opt ed to see current provider for continuity of care. - Does not exercise frequently but manag es joint pain with medication and symptom management. - Dietary intake includes calcium-rich f oods. Problem List - Atrial Fibrillation - Aortic Stenosis - Fatty Liver Disease - Osteoarthritis, multiple joints - Essential Hypertension - Multinodular Goiter - Osteopenia - Urinary Incontinence - Chronic Pain due to Osteoarthritis - Kidney Nephropathy - Prediabetes - Basal, Squamous, and Melanoma Skin Can cer History - Status Post Bilateral Total Knee Repla cement - Status Post Cholecystectomy - Status Post Complete Hysterectomy - Carpal Tunnel Syndrome (resolved with surgery) - Artificial Aortic Valve - Pacemaker Patient Instructions - Complete ordered thyroid ultrasound an d blood tests before the next visit. - Continue using pads for urinary incont inence management. - Maintain current regimen for hypertens ion, osteoarthritis, and prediabetes management. - Be vigilant about self-breast examinat ions and report any changes. Follow-up 4 months labs are needed before visit Review of Systems - General: No fever no chills - Neurological: No headaches no dizzin ess - Ear nose throat: No sore throat no hearing difficulty no ear pain - Cardiovascular: No syncope, no chest pain, no palpitations - Gastrointestinal: No nausea vomiting or diarrhea - Endocrine: No polyuria polydipsia no heat intolerance - Genitourinary: No dysuria - Skin: No new complaints Physical Exam General: Cooperative, healthy appearing, comfortable, no acute distress Orientation: Patient oriented x3 Head: Normal to inspection Ears: Within normal limit visually Nose: Normal external nose present Face and sinus: Normal facial exam Eyes: Appearance normal, extraocular movement intact pupils reactive Neck: Normal visual inspection and supple, unable to palpate any nodules on thyroid Respiratory: Normal respiratory effort and able to speak in complete sentences. Clear to auscultation, no stridor Cardiovascular: S1 and S2, artificial aortic valve, pacemaker present GI: Normal to inspection. Soft to palpation and nontender Skin: turgor normal, Neuro: Patient oriented x3, motor sensory intact, balance intact, tandem failed Extremities: Normal to inspection, bilateral total knee replacement PFSH Medical History Cardiac pacemaker in situ Aortic stenosis PAF (paroxysmal atrial fibrillation) HTN (hypertension) Surgical History Status post transcatheter aortic valve replacement (TAVR) using bioprosthesis S/P cardiac cath History of carpal tunnel release Hx of knee surgery Hx of colonoscopy Hx of breast surgery History of tonsillectomy and adenoidectomy Hx of total hysterectomy Hx of cholecystectomy Family History Father CVD (cardiovascular disease) Mother No problems noted. Sister CVD (cardiovascular disease) Social History Housing: House Patient Tobacco Use Status: Never used Tobacco service: No Current occupational status: retired Cognitive needs: No Hearing needs: No Vision needs: Yes Questionnaire PHQ-9 Over the last 2 weeks, how often have you been bothered by any of the following problems? 1. Little interest or pleasure in doing things: not at all 2. Feeling down, depressed, or hopeless: not at all 3. Trouble falling or staying asleep, or sleeping too much: not at all 4. Feeling tired or having little energy: nearly every day 5. Poor appetite or overeating: not at all 6. Feeling bad about yourself - or that you are a failure or have let yourself or your family down: not at all 7. Trouble concentrating on things, such as reading the newspaper or watching te levision: not at all 8. Moving or speaking so slowly that other people could have noticed. Or the opposite - being so fidgety or restless that you have been moving around a lot more than usual: not at all 9. Thoughts that you would be better off or of hurting yourself in some way: not at all Total score: 3 Depression Screening Interpretation: Negative Depression Screening Done: Yes 90394 - PHQ-9 Billing: Yes Source: Developed by Drs. Amari Burdick, Felipa Sims, Jose Bejarano and colleagues, with an educational fahad from [employer]. Thrive Questionnaire I am a: Patient What is your living situation today?: I have a steady place to live Within the past 12 months, did the food you bought not last and you didn't have the money to get more?: Never true Within the past 12 months, did you worry whether your food would run out before you got money to buy more?: Never true Do you have trouble paying for medicines?: No Do you have trouble getting transportation to medical appointments?: No Do you have trouble paying your heating and electricity bill?: No Do you have trouble taking care of your child, family member or friend?: No Do you have trouble with day-to-day activities such as bathing, preparing meals, shopping, managing finances, etc.?: No Are you currently unemployed and looking for a job?: No Are you interested in more education?: No Please select the resources that you would like help with: None Currently or been in a relationship where the following occur: No concerns reported THRIVE Score: 0 AUDIT C Alcohol Use Questionnaire (AUDIT-C) 1. How often do you have a drink containing alcohol?: Monthly or less 2. How many drinks containing alcohol do you have on a typical day when you are drinking?: 1 or 2 3. How often do you have six or more drinks on one occasion?: Never Total Score: 1 STANLEY-7 AMB Questionnaire STANLEY-7 Feeling nervous, anxious, or on edge: 0 = Not at all Not being able to stop or control worryin = Not at all Worrying too much about different things: 0 = Not at all Trouble relaxin = Not at all Being so restless that it is hard to sit still: 0 = Not at all Becoming easily annoyed or irritable: 0 = Not at all Feeling afraid as if something awful might happen: 0 = Not at all Total STANLEY-7 score (0-4 normal; 5-9 mild; 10-14 moderate; 15-21 severe): 0 Source: Developed by Drs. Amari Burdick, Felipa Sims, Jose Bejarano and colleagues, with an educational fahad from [employer]. STANLEY-7 Assessment Billing STANLEY-7 Assessment Tool: STANLEY-7 Assessment 12169 Physical exam (Primary Care) Vital Signs: Last Vital Signs Temp 98.0 F 09/25/24 10:54 Pulse 92 09/25/24 10:54 Resp 16 09/25/24 10:54 BP 148/82 H 09/25/24 10:54 Pulse Ox 99 09/25/24 10:54 Oxygen Delivery Method Room Air 09/25/24 10:54 BMI result Body Mass Index 32.8 Tobacco/Smoking Status: Tobacco use Status Tobacco use date assessed 09/25/24 09/25/24 11:01 Patient Tobacco Use Status Never used Tobacco 09/25/24 11:01 PHQ-9: PHQ-9 Score PHQ-9: Total score 3 09/25/24 11:37 Depression Screening Interpretation: Negative Currently or been in a relationship where the following occur: No concerns reported Coding Level of Care Code New Pt Level 5 (41063) Complex EM visit Add On G2211 Diagnoses Establishing care with new doctor, encounter for Z76.89 PAF (paroxysmal atrial fibrillation) I48.0 Primary hypertension I10 Hypertension type: primary hypertension Cardiac pacemaker in situ Z95.0 Status post transcatheter aortic valve replacement (TAVR) using bioprosthesis Z95.3 Osteoarthritis involving multiple joints on both sides of body M15.9 Multinodular goiter E04.2 Osteopenia, unspecified location M85.80 Osteopenia location: unspecified Urine, incontinence, stress female N39.3 Cervicalgia M54.2 Fatty liver K76.0 Class 1 obesity due to excess calories with serious comorbidity and body mass index (BMI) of 32.0 to 32.9 in adult E66.811; E66.09; Z68.32 Body mass index: BMI 32.0-32.9 Obesity classification: adult class 1 (BMI 30 - 34.9) Serious obesity comorbidity presence: with serious comorbidity Aspirin allergy Z88.8 History of bilateral knee replacement Z96.653 S/P complete hysterectomy Z90.710 Prediabetes R73.03 Additional Codes STANLEY-7 Assessment Billing - STANLEY-7 Assessment Tool: STANLEY-7 Assessment 88700 ([id number]) PHQ-9 - 66902 - PHQ-9 Billing: Yes ([id number]) Time Spent (min) 61 Comment Wbzs-eg-ofrr/previous labs/cardiology notes/coordination of care Assessment & Plan Assessment & Plan (1) Establishing care with new doctor, encounter for: Code(s): Z76.89 - Persons encountering health services in other specified circumstances Category: Medical (2) PAF (paroxysmal atrial fibrillation): Code(s): I48.0 - Paroxysmal atrial fibrillation Category: Medical (3) HTN (hypertension): Code(s): I10 - Essential (primary) hypertension Category: Medical Qualifiers: Hypertension type: primary hypertension Qualified Code(s): I10 - Essential (primary) hypertension (4) Cardiac pacemaker in situ: Comment: Medtronic dual-chamber pacemaker placed, for postprocedure complete heart block Code(s): Z95.0 - Presence of cardiac pacemaker Category: Medical (5) Status post transcatheter aortic valve replacement (TAVR) using bioprosthesis: Comment: 23 mm Evolut valve. Mean gradient of 12 mmHg postprocedure Code(s): Z95.3 - Presence of xenogenic heart valve Category: Surgical (6) Osteoarthritis involving multiple joints on both sides of body: Code(s): M15.9 - Polyosteoarthritis, unspecified Category: Medical (7) Multinodular goiter: Code(s): E04.2 - Nontoxic multinodular goiter Category: Medical (8) Osteopenia: Code(s): M85.80 - Other specified disorders of bone density and structure, unspecified site Category: Medical Qualifiers: Osteopenia location: unspecified Qualified Code(s): M85.80 - Other specified disorders of bone density and structure, unspecified site (9) Urine, incontinence, stress female: Code(s): N39.3 - Stress incontinence (female) (male) Category: Medical (10) Cervicalgia: Code(s): M54.2 - Cervicalgia Category: Medical (11) Fatty liver: Code(s): K76.0 - Fatty (change of) liver, not elsewhere classified Category: Medical (12) Obesity due to excess calories: Code(s): E66.09 - Other obesity due to excess calories Category: Medical Qualifiers: Body mass index: BMI 32.0-32.9 Obesity classification: adult class 1 (BMI 30 - 34.9) Serious obesity comorbidity presence: with serious comorbidity Qualified Code(s): E66.811 - Obesity, class 1; E66.09 - Other obesity due to excess calories; Z68.32 - Body mass index [BMI] 32.0-32.9, adult (13) Aspirin allergy: Code(s): Z88.8 - Allergy status to other drugs, medicaments and biological substances Category: Medical (14) History of bilateral knee replacement: Code(s): Z96.653 - Presence of artificial knee joint, bilateral Category: Surgical (15) S/P complete hysterectomy: Code(s): Z90.710 - Acquired absence of both cervix and uterus Category: Surgical (16) Prediabetes: Code(s): R73.03 - Prediabetes Category: Medical Plan Chief Complaint Patient presents for establish care visit and management of multiple chronic conditions. History - The patient is an 84-year-old female presenting new patient visit focusing on the management of multiple chronic conditions. - Patient has a history of atrial fibrillation managed with an artificial aortic valve and pacemaker insertion. Seeing Dr. Jewell cardiology [facility] - Aortic stenosis has been treated with valve replacement and remains stable. - Follow-up for osteoarthritis affecting multiple joints, previously managed with prednisone, which the patient finds essential for joint pain relief. Arthritis treatment center - Reports consistent issues with urinary incontinence managed with pads. - History of basal, squamous, and melanoma skin cancers, currently under follow- up care with a automotive painter helper. - Multinodular goiter is currently not followed by an metallurgical tester, no recent ultrasound or assessment, goiter size and function remain unknown. Ultrasound thyroid ordered along with labs - Chronic kidney disease is notable with a glomerular filtration rate of 39, currently under observation. - Patient managed for prediabetes with lifestyle modifications. - Blood pressure managed with lisinopril and metoprolol, currently stable. - Previous surgeries include bilateral total knee replacement, cholecystectomy, and complete hysterectomy. Health Maintenance - Discussed thyroid ultrasound recommended for baseline size and location of nodules. - Routine labs needed for thyroid function assessment. - Consideration for resuming mammograms based on patient's active status and health, decision pending patient's choice. - Ultrasound and blood tests planned for future clinic visit, will be reminded and scheduled through the clinic. - Encouraged continuation of weight-bearing exercises, vitamin D and calcium intake for osteopenia. - Anticipatory guidance provided for self-examinations for breast cancer detection. Medications - Metoprolol (dose unspecified) - Eliquis (Apixaban) for atrial fibrillation - Rosuvastatin for hyperlipidemia - Furosemide for management of fluid retention - Lisinopril 2.5 mg for hypertension - Vitamin D and Calcium supplementation for osteopenia - Prednisone for osteoarthritis pain, at a dose of 1 mg, twice daily Social History - Currently , lives with who assists with transportation. - Reports having grown children and grandchildren. - Previous doctor relocated; patient opted to see current provider for continuity of care. - Does not exercise frequently but manages joint pain with medication and symptom management. - Dietary intake includes calcium-rich foods. Problem List - Atrial Fibrillation - Aortic Stenosis - Fatty Liver Disease - Osteoarthritis, multiple joints - Essential Hypertension - Multinodular Goiter - Osteopenia - Urinary Incontinence - Chronic Pain due to Osteoarthritis, taking 1 mg prednisone b.i.d. from arthritis center - Kidney Nephropathy - Prediabetes - Basal, Squamous, and Melanoma Skin Cancer History - Status Post Bilateral Total Knee Replacement - Status Post Cholecystectomy - Status Post Complete Hysterectomy - Carpal Tunnel Syndrome (resolved with surgery) - Artificial Aortic Valve - Pacemaker [place] of care Cardiology: Dr. Jewell Dermatology: Dr. Laurent Price Ophthalmology: Dr. Chung Tinsley [facility]: Dr. Hudson Lamas Patient Instructions - Complete ordered thyroid ultrasound and blood tests before the next visit. - Continue using pads for urinary incontinence management. - Maintain current regimen for hypertension, osteoarthritis, and prediabetes management. - Be vigilant about self-breast examinations and report any changes. Follow-up 4 months labs are needed before visit Orders: Orders US thyroid Today E04.2 - Nontoxic multinodular goiter Complete Blood Count Auto Diff Today E04.2 - Nontoxic multinodular goiter, E66.09 - Other obesity due to excess calories, E66.811 - Obesity, class 1, I10 - Essential (primary) hypertension, I48.0 - Paroxysmal atrial fibrillation, M85.80 - Other specified disorders of bone density and structure, unspecified site, R73.03 - Prediabetes, Z68.32 - Body mass index [BMI] 32.0-32.9, adult Lipid Panel Today E04.2 - Nontoxic multinodular goiter, E66.09 - Other obesity due to excess calories, E66.811 - Obesity, class 1, I10 - Essential (primary) hypertension, I48.0 - Paroxysmal atrial fibrillation, M85.80 - Other specified disorders of bone density and structure, unspecified site, R73.03 - Prediabetes, Z68.32 - Body mass index [BMI] 32.0-32.9, adult MM tomosynthesis screening BI Today Z12.31 - Encounter for screening mammogram for malignant neoplasm of breast [facility] [place]. Panel Fast Today E04.2 - Nontoxic multinodular goiter, E66.09 - Other obesity due to excess calories, E66.811 - Obesity, class 1, I10 - Essential (primary) hypertension, I48.0 - Paroxysmal atrial fibrillation, M85.80 - Other specified disorders of bone density and structure, unspecified site, R73.03 - Prediabetes, Z68.32 - Body mass index [BMI] 32.0-32.9, adult TSH reflex Free T4 Today E04.2 - Nontoxic multinodular goiter, E66.09 - Other obesity due to excess calories, E66.811 - Obesity, class 1, I10 - Essential (primary) hypertension, I48.0 - Paroxysmal atrial fibrillation, M85.80 - Other specified disorders of bone density and structure, unspecified site, R73.03 - Prediabetes, Z68.32 - Body mass index [BMI] 32.0-32.9, adult
--- OUTSIDE RECORDS SUMMARY | 2024-09-25 12:56 | XMS_ITS | Clinical Summary ---
Author Organization [facility] Address [address] [place] [address] Care Team Providers Care Anaesthesiologist Name Role Phone Unavailable Primary Care Provider [...] Name Comments Heart disease Father Other Mother Fluvanna's disea se Other Sister PVD Relation Name [...]
== END 2024-09-25 11:30 | disposition home or self-care (01) ==
LOC: HO.HMCC 10:53
PROVIDERS: PCP Internal Medicine; Visit Provider Internal Medicine
DX: I48.0 Paroxysmal atrial fibrillation (principal); I10 Essential (primary) hypertension; M15.9 Polyosteoarthritis, unspecified; E04.2 Nontoxic multinodular goiter; Z76.89 Persons encountering health services in other specified circumstances; Z95.0 Presence of cardiac pacemaker; Z95.3 Presence of xenogenic heart valve; M85.80 Other specified disorders of bone density and structure, unspecified site; R73.03 Prediabetes; N39.3 Stress incontinence (female) (male); M54.2 Cervicalgia; K76.0 Fatty (change of) liver, not elsewhere classified

== ENCOUNTER → 2024-09-25 10:52 | Outpatient (BNVA) | payer MEDICARE, SELFPAY ==
[2021-12-15 06:48] VITALS: BP 134/60; BP 138/62; BP 140/66; BMI 31.4
== END ==
PROVIDERS: PCP Internal Medicine; Visit Provider Internal Medicine
DX: I48.0 Paroxysmal atrial fibrillation (principal); I10 Essential (primary) hypertension; R73.03 Prediabetes; M15.9 Polyosteoarthritis, unspecified; E04.2 Nontoxic multinodular goiter; M85.80 Other specified disorders of bone density and structure, unspecified site; N39.3 Stress incontinence (female) (male); M54.2 Cervicalgia; K76.0 Fatty (change of) liver, not elsewhere classified; E66.811 Obesity, class 1; Z68.32 Body mass index [BMI] 32.0-32.9, adult; Z71.3 Dietary counseling and surveillance; Z88.8 Allergy status to other drugs, medicaments and biological substances; Z90.710 Acquired absence of both cervix and uterus; Z96.653 Presence of artificial knee joint, bilateral; Z95.0 Presence of cardiac pacemaker; Z95.3 Presence of xenogenic heart valve; Z76.89 Persons encountering health services in other specified circumstances
CPT/HCPCS: 96127; 99202

== ENCOUNTER → 2024-09-28 14:38 | Outpatient (REF) | payer MEDICARE, SELFPAY ==
[2021-12-15 06:48] VITALS: BP 134/60; BP 138/62; BP 140/66; BMI 31.4
--- NOTE | 2024-09-28 14:41 | CA_ITS ---
Transthoracic Echocardiogram Patient (Last, First, Middle): Mandy Ayala T Gender: Female Date of : 1940 Age: 84 Procedure Date: 09/28/2024 Procedure Type: Transthoracic Echocardiogram Location: OP Height: 160.02 cm Weight: 83.92 kg BSA: 1.87 m2 Heart Rate: 74 bpm BP: 138 / 74 mmHg Sales Support Manager: SB Referring MD: Glen Jewell MD Symptoms: Z95.3 - Presence of xenogenic heart valve Study Quality: Fair ECG Rhythm: Sinus Conclusions: - The left ventricular systolic function is normal. The visually estimated ejection fraction is between 65-70%. - A bioprosthetic aortic valve is present. The prosthetic aortic valve appears to be functioning normally. Findings Left Ventricle Normal left ventricular cavity size. There is normal left ventricular wall thickness. The left ventricular systolic function is normal. The visually estimated ejection fraction is between 65-70%. There is no evidence of regional wall motion abnormalities. Evidence suggests grade II (moderate) diastolic dysfunction. Right Ventricle Normal right ventricular cavity size and systolic function. Atria Both atria are normal in size. Aortic Valve A bioprosthetic aortic valve is present. The prosthetic aortic valve appears to be functioning normally. The mean gradient is 15 mmHg. There is no aortic valve regurgitation. Mitral Valve There is mild mitral annular calcification. There is no mitral valve regurgitation. There is no mitral valve stenosis. Pulmonic Valve The pulmonic valve is likely normal. Tricuspid Valve There is mild tricuspid valve regurgitation. There is no evidence of pulmonary hypertension. Great Vessels The asc aorta is normal in size. Venous The inferior vena cava is normal in size and collapses greater than 50% with inspiration. Pericardium/Pleural There is no evidence of pericardial effusion. Prior Study Comparison No significant change compared to prior study dated: 08/30/2023. Measurements 2D Linear Measurements IVSd: 0.85 0.6-0.9/0.6-1.0 cm LVIDd: 3.91 3.9-5.3/4.2-5.9 cm LVIDd Index: 2.09 2.4-3.2/2.2-3.1 cm/m2 LVIDs: 2.35 2.0-3.6 cm LVPWd: 0.68 0.7-1.1 cm LA Diam: 3.00 2.7-3.8/3.0-4.0 cm LAIDs Index: 1.60 1.5-2.3 cm/m2 LV Mass: 104.62 67-162/88-224 g LV Mass Index: 55.94 43-95/49-115 g/m2 LVOT Diam: 1.70 3.0+(-)1.3 cm 2D Systolic Function EF 2C: 68.40 >55% Mitral Valve MV VTI: 0.46 MV Pk Jorge: 1.64 MV Mn Jorge: 1.07 MV Pk Grad: 11.00 MV Mn Grad: 5.00 MV Pk E: 1.16 MV PK A: 1.29 MV Decel Time: 258.00 E/A: 0.90 E'Lateral: 6.20 E'Medial: 7.94 E/E' Med: 14.60 E/E' Lat: 18.70 PHT: 76.00 MVA PHT: 2.89 MVA Continuity: 1.26 Decel [place]: 4.49 Aortic Valve AoV Pk Jorge: 2.59 AoV Mn Jorge: 1.78 AoV VTI: 0.58 AoV Pk Grad: 27.00 Aov Mn Grad: 15.00 NABIL Cont.VTI: 0.99 LVOT LVOT Pk Jorge: 1.09 LVOT Mn Jorge: 0.77 LVOT VTI: 0.26 LVOT Pk Grad: 5.00 LVOT Mn Grad: 3.00 LVOT Diam: 1.70 LVOT Area: 2.27 Diastolic Function MV Pk E: 1.16 MV Pk A: 1.29 E/A: 0.90 E'Medial: 7.94 E/E' Med: 14.60 E' Laterial: 6.20 E/E' Lat: 18.70 Right Ventricle TAPSE (mm): 26.70 TVS' Jorge: 12.30 Tricuspid Valve TR Pk Jorge: 2.44 TR Pk Grad: 24.00 RA Press: 3.00 RVSP: 27.00 Great Vessels Aorta Ao Asc: 2.80 2.1-3.4 cm Pulmonary Veins Pulm Vein S/D 2.00 Pulmonary Valve PV Pk Jorge: 1.27 Peak PV Grad: 6.00 Updated in Other Vendor System with Status of Final Mahamed Locke MD electronically signed on 09/29/2024 12:55:34 PM with status of Final
--- OUTSIDE RECORDS SUMMARY | 2024-09-28 15:18 | XMS_ITS | Clinical Summary ---
Author Organization [facility] Address [address] [place] [address] Care Team Providers Care Refinery Pipeline Operator Name Role Phone Unavailable Primary Care Provider [...] Name Comments Heart disease Father Other Mother Mono's disea se Other Sister PVD Relation Name [...]
== END ==
LOC: HO.CARD 14:38
PROVIDERS: PCP Internal Medicine; Visit Provider Internal Medicine Cardiovascular Disease
DX: Z95.3 Presence of xenogenic heart valve (principal)
CPT/HCPCS: 93306

== ENCOUNTER → 2024-09-28 14:41 | Outpatient (BNV) | payer MEDICARE, SELFPAY ==
[2021-12-15 06:48] VITALS: BP 134/60; BP 138/62; BP 140/66; BMI 31.4
== END ==
PROVIDERS: PCP Internal Medicine; Visit Provider Internal Medicine
DX: I51.89 Other ill-defined heart diseases (principal); I34.81 Nonrheumatic mitral (valve) annulus calcification; I36.1 Nonrheumatic tricuspid (valve) insufficiency; Z95.3 Presence of xenogenic heart valve
CPT/HCPCS: 93306

== ENCOUNTER → 2024-10-04 23:59 | Outpatient (BNV) | payer MEDICARE, SELFPAY ==
[2021-12-15 06:48] VITALS: BP 134/60; BP 138/62; BP 140/66; BMI 31.4
--- NOTE | 2024-10-09 13:11 | MHC.OFFVIS ---
Intake Visit Reasons: Remote device check- Medtronic Allergies aspirin Allergy (Unknown, Verified 09/25/24 10:56) asthma Egg Allergy (Unknown, Uncoded 09/25/24 10:56) Unknown Fluarix Allergy (Unknown, Uncoded 09/25/24 10:56) Unknown NSAIDs Allergy (Unknown, Uncoded 09/25/24 10:56) shortness of breath Shellfish Allergy (Unknown, Uncoded 09/25/24 10:56) Unknown PFSH Medical History Cardiac pacemaker in situ Aortic stenosis PAF (paroxysmal atrial fibrillation) HTN (hypertension) Surgical History Status post transcatheter aortic valve replacement (TAVR) using bioprosthesis S/P cardiac cath History of carpal tunnel release Hx of knee surgery Hx of colonoscopy Hx of breast surgery History of tonsillectomy and adenoidectomy Hx of total hysterectomy Hx of cholecystectomy Family History Father CVD (cardiovascular disease) Mother No problems noted. Sister CVD (cardiovascular disease) Social History Housing: House Patient Tobacco Use Status: Never used Tobacco service: No Current occupational status: retired Cognitive needs: No Hearing needs: No Vision needs: Yes Office Procedures Cardiac Device Check Cardiac Device Check Details: Remote pacemaker report generated 10/04/2024. Pacemaker function is adequate [id number] Cardiac Device Interrogation, pacemaker Procedure code (CPT) selection complete Assessment & Plan Assessment & Plan (1) Cardiac pacemaker in situ: Comment: Medtronic dual-chamber pacemaker placed, for postprocedure complete heart block Code(s): Z95.0 - Presence of cardiac pacemaker Category: Medical Plan: See above Coding Level of Care Code Procedure Only Diagnoses Cardiac pacemaker in situ Z95.0 CPT Codes Cardiac Device Check - Cardiac Device 12: [id number] Cardiac Device Interrogation, pacemaker ([id number])
== END ==
PROVIDERS: PCP Internal Medicine; Visit Provider Internal Medicine Cardiovascular Disease
DX: I44.2 Atrioventricular block, complete (principal); Z95.0 Presence of cardiac pacemaker
CPT/HCPCS: 93294

== ENCOUNTER 2024-11-12 08:12 | Outpatient (REF) | payer MEDICARE, SELFPAY ==
[2021-12-15 06:48] VITALS: BP 134/60; BP 138/62; BP 140/66; BMI 31.4
--- NOTE | ~2024-11-12 | US_ITS ---
EXAMINATION: US THYROID HISTORY: E04.2 - Nontoxic multinodular goiter TECHNIQUE: Real-time grayscale ultrasound imaging was performed and images were reviewed. COMPARISON: Comparison is made with the prior examination dated 03/23/2021. FINDINGS: SIZE: The right thyroid lobe measures 3.2 x 1.6 x 1.3 cm. The left thyroid lobe measures 1.0 x 2.1 x 1.7 cm. The isthmus measures 6 mm. FLOW: Flow to the gland is normal. ECHOGENICITY: The echotexture of the gland is homogeneous. NODULES: Multiple bilateral thyroid nodules are again noted as described below: Nodule #: 1 Location: Right lower pole measuring 5 x 4 x 6 mm (previously 9 x 5 x 8 mm). Shape: Wider than tall (0 points) Margins: Smooth (0 points) Echotexture: Hypoechoic (2 points) Composition: Mostly solid (2 points) Calcifications: None (0 points) Total points: 4 TIRADS: TR4: Moderately suspicious. Nodule #: 2 Location: Midportion of the right thyroid lobe measuring 4 x 3 x 4 mm (previously 4 x 3 x 3 mm). Shape: Wider than tall (0 points) Margins: Smooth (0 points) Echotexture: Hypoechoic (2 points) Composition: Mostly solid (2 points) Calcifications: None (0 points) Total points: 4 TIRADS: TR4: Moderately suspicious. Nodule #: 3 Location: Midportion of the right thyroid lobe measuring 4 x 3 x 3 mm (previously 8 x 3 x 5 mm). Shape: Wider than tall (0 points) Margins: Smooth (0 points) Echotexture: Hypoechoic (2 points) Composition: Solid (2 points) Calcifications: None (0 points) Total points: 4 TIRADS: TR4: Moderately suspicious. Nodule #: 4 Location: Midportion of the left thyroid lobe measuring 1.7 x 1.4 x 1.8 cm (previously 2.9 x 1.9 x 1.7 cm). Shape: Wider than tall (0 points) Margins: Smooth (0 points) Echotexture: Hypoechoic (2 points) Composition: Mostly solid (2 points) Calcifications: None (0 points) Total points: 4 TIRADS: TR4: Moderately suspicious. US/US thyroid IMPRESSION: Multinodular thyroid gland as described. The dominant nodule in the midportion of the left lobe is smaller. ACR TI-RADS Guidelines TR1 (0 points): Benign, No follow-up or biopsy required TR2 (2 points): Not Suspicious, No biopsy or follow up indicated TR3 (3 points): Mildly Suspicious, FNA if >= 2.5 cm, Follow if >= 1.5 cm TR4 (4-6 points): Moderately Suspicious, FNA if >= 1.5 cm, Follow if >= 1.0 cm TR5 (>=7 points): Highly Suspicious, FNA if >= 1.0 cm, Follow if >= 0.5 cm Electronically signed by: Amari Will MD 11/12/2024 10:17 AM EDT
--- OUTSIDE RECORDS SUMMARY | 2024-11-12 08:15 | XMS_ITS | Clinical Summary ---
Author Organization [facility] Address [address] [place] [address] Care Team Providers Care Briquette Maker Name Role Phone Unavailable Primary Care Provider [...] Name Comments Heart disease Father Other Mother [place]'s disea se Other Sister PVD Relation Name [...] Td or Tdap) 03/09/2021 03/09/2011 Influenza Vaccine (Season Ended) 2025 Hepatitis B Vaccines Aged Out No long er eligible based on patient's age to complete this topic RSV Ped < 20 months Aged Out No longe r eligible based on patient's age to complete this topic
== END 2024-11-12 08:13 | disposition home or self-care (01) ==
LOC: HO.US 08:12
PROVIDERS: PCP Internal Medicine; Visit Provider Internal Medicine
DX: E04.2 Nontoxic multinodular goiter (principal)
CPT/HCPCS: 76536

== ENCOUNTER → 2024-11-12 08:14 | Outpatient (BNV) | payer MEDICARE, SELFPAY ==
[2021-12-15 06:48] VITALS: BP 134/60; BP 138/62; BP 140/66; BMI 31.4
== END ==
PROVIDERS: PCP Internal Medicine; Visit Provider Radiology Diagnostic Radiology
DX: E04.2 Nontoxic multinodular goiter (principal)
CPT/HCPCS: 76536

== ENCOUNTER 2025-01-04 09:15 | Outpatient (REF) | payer MEDICARE, SELFPAY ==
[2021-12-15 06:48] VITALS: BP 134/60; BP 138/62; BP 140/66; BMI 31.4
--- OUTSIDE RECORDS SUMMARY | 2025-01-04 09:28 | XMS_ITS | Patient Health Record ---
Author Organization [facility] Address [address] [facility] [place] [address] Care Team Providers Care Respiratory Services Manager Name Role Phone Baljit Mullen MD Primary Care Provider Janak Guzmán Unavailable [phone] Allergies Allergen (clinical drug ingredient) Drug/Non Drug Allergy documented on EMR Reaction Allergy Type Onset Date Status aspirin Aspirin Unknown Drug Allergy Active Reason For Referral No Information Medications Medication SIG (Take, Route, Frequency, Duration) Notes Start Date End Date Status Atorvastatin Calcium Active Lisinopril Active vitamin Active Co Enzyme Q-10 Activ e Dua-Rtv-Tezp-D Activ e Fish Oil Active Osteo Bi-Flex Adv Double St Active Social History Tobacco Use: Social History Observation Description Date Details (start date - stop date) Never Smoker NA - NA Tobacco Use/Smoking Question Answer Notes Are you a: nonsmoker Additional Findings: Tobacco Non-User Current no n-smoker Alcohol Screen Question Answer Notes Did you have a drink containing alcohol in the p ast year? Yes Points 0 Interpretation Negative Problems Problem Type SNOMED Code ICD Code Onset Dates Problem Status W/U Status Risk Notes Problem Disorder of joint of ankle and/or foot (112375995) Arthritis - Degenerative (719.97) Active confirmed Problem Hammer toe (746700379) Hammer toe (735.4) Active confirmed Problem Pain in limb (07636540) Pain in Limb (729.5) Active confirmed Plan Of Treatment Pending Test Test Name Order Date X ray : Foot, left 2V 09/18/2014 X ray : Foot, right 2V 09/18/2014 Insurance Providers Payer Name Payer Address Payer Phone Subscriber Number Group Number Insured Name Patient Relationship to Insured Coverage Start Date Coverage End Date Medicare National [employer] [address] [place] [address] [id number] Mandy Ayala Self - patient is the insured [employer] [address] [place] [address] [phone] [id number] Mandy Ayala Self - patient is the insured Medical (General) History Medical History History ICD Code osteoarthritis asthma Broken bones Cancer Gall bladder problems High blood pressure Liver disease Surgical History Surgery Date(Month/Year) rotator cuff tear repair complete hysterectomy perforated gall bladder carpal karlene
--- OUTSIDE RECORDS SUMMARY | 2025-01-04 09:28 | XMS_ITS | Patient Health Record ---
Author Organization [facility] Address [address] [place] [id number] Care Team Providers Care Dance Therapist Name Role Phone Amari Garcia Unavailable [phone] Reason For Referral No Information Plan Of Treatment No Information
[2025-01-04 09:29] LABS: MANUAL DIFF FLAG NO
--- OUTSIDE RECORDS SUMMARY | 2025-01-04 09:29 | XMS_ITS | Clinical Summary ---
Author Organization [facility] Address [address] [place] [address] Care Team Providers Care Director Automotive Name Role Phone Unavailable Primary Care Provider [...] Name Comments Heart disease Father Other Mother [place]'s disea se Other Sister PVD Relation Name [...] 71 12/24/2019 10:47 AM EDT Temperature 36.7 C (98 F) 12/24/2019 10:47 AM EDT Respiratory Rate 14 [...] 02/18/2020 12/24/2019 (Declined) BMI Counseling 02/24/2021 02/25/2020, 07/2 , 05/28/2019, Additional history exists Depression Screening 02/24/2021 02/25/2020, 02/25/2020, 02/25/2020, Additional history exists Fall Risk Assessment 02/24/2021 02/25/2020, 02/25/2020, 02/25/2020, Additional history exists Preventative Health Evaluation 02/24/2021 02/25/2020, 02/25/2020, 11/27/2018, Additional history exists DTap / Tdap / Td (2 - Td or Tdap) 03/09/2021 03/09/2011 Influenza Vaccine (#1) 2025 Hepatitis B Vaccines Aged Out No long er eligible based on patient's age to complete this topic RSV Ped < 20 months Aged Out No longe r eligible based on patient's age to complete this topic
[2025-01-04 10:11] LABS: Hematocrit 39.5 % (37.0-47.0); Hemoglobin 13.0 g/dl (12.0-16.0); Imm Gran Abs Auto 0.02 X10*3/uL (0.00-0.03); Imm Gran Pct Auto 0.3 % (0.0-0.4); Lymphocytes Absolute Auto 2.1 X10*3/uL (1.2-4.9); Mean Corpuscular HGB Conc 32.9 g/dl (31.0-35.0); Mean Corpuscular Hemoglobin 31.3 pg (27.0-33.0); Mean Corpuscular Volume 95.2 fL (80.0-98.0); NRBC Abs Auto 0.000 X10*3/uL (0.0-0.012); NRBC Pct Auto 0.0 /100WBC (0.0-0.2); Platelet Count 159 X10*3/uL (160-400); Red Blood Count 4.15 X10*6/uL (4.20-5.50); White Blood Count 6.9 X10*3/uL (4.8-10.8)
[2025-01-04 10:46] LABS: Alanine Aminotransferase 28 U/L (0-31); Albumin Level 4.5 g/dL (3.5-5.0); Alkaline Phosphatase 60 U/L (39-117); Anion Gap 15 (12-20); Aspartate Amino Transferase 34 U/L (5-31); Blood Urea Nitrogen 35 mg/dL (9-16); Calcium 9.0 mg/dL (8.4-10.2); Carbon Dioxide 30 mmol/L (22-29); Chloride 104 mmol/L (96-108); Cholesterol 247 mg/dL (<200); Estimated Glomerular Filt Rate 34; HDL Cholesterol 64 mg/dL (>40); Potassium 3.8 mmol/L (3.3-5.1); Sodium 145 mmol/L (135-145); Total Protein 7.4 g/dL (6.5-8.0); Triglycerides 255 mg/dL (<150)
== END 2025-01-04 09:16 | disposition home or self-care (01) ==
LOC: HO.LAB 09:15
PROVIDERS: PCP Internal Medicine; Visit Provider Internal Medicine
DX: I10 Essential (primary) hypertension (principal); I48.0 Paroxysmal atrial fibrillation; E04.2 Nontoxic multinodular goiter; M85.80 Other specified disorders of bone density and structure, unspecified site; E66.811 Obesity, class 1; Z68.32 Body mass index [BMI] 32.0-32.9, adult; R73.03 Prediabetes
CPT/HCPCS: 36415; 80053; 80061; 84443; 85025

== ENCOUNTER → 2025-01-05 23:59 | Outpatient (BNV) | payer MEDICARE, SELFPAY ==
[2021-12-15 06:48] VITALS: BP 134/60; BP 138/62; BP 140/66; BMI 31.4
--- NOTE | 2025-01-08 15:50 | MHC.OFFVIS ---
Intake Visit Reasons: Remote device check- Medtronic Allergies aspirin Allergy (Unknown, Verified 09/25/24 10:56) asthma Egg Allergy (Unknown, Uncoded 09/25/24 10:56) Unknown Fluarix Allergy (Unknown, Uncoded 09/25/24 10:56) Unknown NSAIDs Allergy (Unknown, Uncoded 09/25/24 10:56) shortness of breath Shellfish Allergy (Unknown, Uncoded 09/25/24 10:56) Unknown PFSH Medical History Cardiac pacemaker in situ Aortic stenosis PAF (paroxysmal atrial fibrillation) HTN (hypertension) Surgical History Status post transcatheter aortic valve replacement (TAVR) using bioprosthesis S/P cardiac cath History of carpal tunnel release Hx of knee surgery Hx of colonoscopy Hx of breast surgery History of tonsillectomy and adenoidectomy Hx of total hysterectomy Hx of cholecystectomy Family History Father CVD (cardiovascular disease) Mother No problems noted. Sister CVD (cardiovascular disease) Social History Housing: House Patient Tobacco Use Status: Never used Tobacco service: No Current occupational status: retired Cognitive needs: No Hearing needs: No Vision needs: Yes Office Procedures Cardiac Device Check Cardiac Device Check Details: Remote pacemaker report generated 01/05/2025. Pacemaker function is adequate [id number] Cardiac Device Interrogation, pacemaker Procedure code (CPT) selection complete Assessment & Plan Assessment & Plan (1) Cardiac pacemaker in situ: Comment: Medtronic dual-chamber pacemaker placed, for postprocedure complete heart block Code(s): Z95.0 - Presence of cardiac pacemaker Category: Medical Plan: See above Coding Level of Care Code Procedure Only Diagnoses Cardiac pacemaker in situ Z95.0 CPT Codes Cardiac Device Check - Cardiac Device 12: [id number] Cardiac Device Interrogation, pacemaker ([id number])
== END ==
PROVIDERS: PCP Internal Medicine; Visit Provider Internal Medicine Cardiovascular Disease
DX: I44.2 Atrioventricular block, complete (principal); Z95.0 Presence of cardiac pacemaker
CPT/HCPCS: 93294

== ENCOUNTER 2025-01-22 09:43 | Outpatient (AMB) | payer MEDICARE, SELFPAY ==
[2021-12-15 06:48] VITALS: BP 134/60; BP 138/62; BP 140/66; BMI 31.4
[2025-01-22 09:46] VITALS: BP 120/76; PULSE 80; O2SAT 96; BMI 32.1
--- NOTE | 2025-01-22 09:46 | A.OFFPC_ITS ---
Vital Signs 01/22/25 09:46 Height 5 ft 3 in Weight 181 lb BMI 32.1 BP 120/76 Blood Pressure Location Rt brachial Position Sitting Pulse 80 Pulse Source Pulse Oximeter Pulse Oximetry (%) 96 Intake Visit Reasons: 4 month follow up Allergies aspirin Allergy (Unknown, Verified 01/22/25 09:46) asthma Egg Allergy (Unknown, Uncoded 09/25/24 10:56) Unknown Fluarix Allergy (Unknown, Uncoded 09/25/24 10:56) Unknown NSAIDs Allergy (Unknown, Uncoded 09/25/24 10:56) shortness of breath Shellfish Allergy (Unknown, Uncoded 09/25/24 10:56) Unknown Medication List - Last Reconciled 01/22/25 by Silvia Alva MD apixaban (Eliquis) 5 mg PO BID lisinopril 2.5 mg PO DAILY metoprolol succinate ER 25 mg PO DAILY prednisone 1 mg PO ONCE rosuvastatin 5 mg PO DAILY 90 days torsemide 20 mg PO DAILY Tobacco use date assessed: 09/25/24 Fall risk assessment: No Falls in past year Last assessed Fall Risk: 01/22/25 Dental Screening Dental Screen Date: 09/25/24 HPI 4 month follow up HPI Details Chief Complaint Longitudinal follow-up appointment History of Present Illness The patient is an 84-year-old female presenting with cardiovascular issues and ear blockage. Cardiovascular follow-up: - The patient regularly follows up for c ardiovascular care and is monitored by a marketing graphics specialist. - Medications include Eliquis, lisinopri l, metoprolol, rosuvastatin, and torsemide. - She is set to have an appointment with the marketing graphics specialist on March 26 for further cardiovascular evaluation. - A pacemaker is in place, requiring per iodic checking by the marketing graphics specialist. Compromised kidney function: - The patient has a history of kidney fu nction compromise, noted since 2019, with a slight worsening over the years. - Although not new, she expresses lack o f previous awareness about this issue. - No current manager of development is involved in her care; referral suggested during the visit. Hearing difficulty: - The patient reports a sensation of ear blockage in one ear, although hearing is generally fine. - She describes the ear feeling blocked occasionally but can usually hear well. Prediabetes: - The patient is identified as prediabet ic, though not yet diabetic. Medical History: - Compromised kidney function since 2019 . - Cardiovascular issues requiring a pace maker. - Prediabetes. Surgical History: - Pacemaker placement. Medications: - Eliquis: managed for atrial fibrillati on risk. - Lisinopril: for hypertension. - Metoprolol: for heart rate control. - Rosuvastatin: for cholesterol manageme nt. - Torsemide: diuretic for managing fluid retention. Diagnostic Results: - Labs: - Recent CBC showed no anemia. - Electrolytes within normal range. - Tests and diagnostics: - Kidney functi on has shown compromise, slightly worsened from the status in 2019. Problem List - Cardiovascular follow-up - Hearing difficulty, possible ear block age - Compromised kidney function - Prediabetes Patient Instructions - Follow with marketing graphics specialist as scheduled for pacemaker and cardiovascular monitoring. - Book an appointment with a nephrologis t at [facility] for kidney assessment. - Consider ear cleaning every 3 months f or ear cerumen - Maintain a healthy lifestyle to manage prediabetes and cardiovascular health. - Report any swelling or further hearing issues promptly. Review of Systems - General: No fever no chills - Neurological: No headaches no dizziness - Ear nose throat: No sore throat no ear pain - Cardiovascular: No syncope, no chest pain, no palpitations - Gastrointestinal: No nausea vomiting or diarrhea - Endocrine: No polyuria polydipsia no heat intolerance - Genitourinary: No dysuria , no blood in urine Physical Exam General: No acute distress HEENT: Ears feel blocked, excessive cerumen bilateral, after ear irrigation and use of ear curette left ear is clean right ear still has slight wax for that patient will use Debrox Neck: Supple Respiratory system: Able to talk in full sentences, no audible wheeze Cardiovascular: S1-S2 Gastrointestinal: No pain Extremities: No swelling of ankles ADDING MACHINE MECHANIC: Alert awake oriented x3 motor sensory intact Skin: Normal turgor PFSH Medical History Cardiac pacemaker in situ Aortic stenosis PAF (paroxysmal atrial fibrillation) HTN (hypertension) Surgical History Status post transcatheter aortic valve replacement (TAVR) using bioprosthesis S/P cardiac cath History of carpal tunnel release Hx of knee surgery Hx of colonoscopy Hx of breast surgery History of tonsillectomy and adenoidectomy Hx of total hysterectomy Hx of cholecystectomy Family History Father CVD (cardiovascular disease) Mother No problems noted. Sister CVD (cardiovascular disease) Social History Housing: House Patient Tobacco Use Status: Never used Tobacco service: No Current occupational status: retired Cognitive needs: No Hearing needs: No Vision needs: Yes Questionnaire Thrive Questionnaire Date Thrive assessed: 01/22/25 I am a: Patient What is your living situation today?: I have a steady place to live Within the past 12 months, did the food you bought not last and you didn't have the money to get more?: Never true Within the past 12 months, did you worry whether your food would run out before you got money to buy more?: Never true Do you have trouble paying for medicines?: No Do you have trouble getting transportation to medical appointments?: No Do you have trouble paying your heating and electricity bill?: No Do you have trouble taking care of your child, family member or friend?: No Do you have trouble with day-to-day activities such as bathing, preparing meals, shopping, managing finances, etc.?: No Are you currently unemployed and looking for a job?: No Are you interested in more education?: No Please select the resources that you would like help with: None Currently or been in a relationship where the following occur: No concerns rep orted THRIVE Score: 0 STANLEY-7 AMB Questionnaire STANLEY-7 Date STANLEY - 7 assessed: 01/22/25 Feeling nervous, anxious, or on edge: 0 = Not at all Not being able to stop or control worryin = Not at all Worrying too much about different things: 0 = Not at all Trouble relaxin = Not at all Being so restless that it is hard to sit still: 0 = Not at all Becoming easily annoyed or irritable: 0 = Not at all Feeling afraid as if something awful might happen: 0 = Not at all Total STANLEY-7 score (0-4 normal; 5-9 mild; 10-14 moderate; 15-21 severe): 0 Source: Developed by Felipa Zapata Levi, Jose Bejarano and colleagues, with an educational fahad from [employer]. STANLEY-7 Assessment Billing STANLEY-7 Assessment Tool: STANLEY-7 Assessment 71584 Physical exam (Primary Care) Vital Signs: Last Vital Signs Pulse 80 01/22/25 09:46 BP 120/76 01/22/25 09:46 Pulse Ox 96 01/22/25 09:46 BMI result Body Mass Index 32.1 Tobacco/Smoking Status: Tobacco use Status Tobacco use date assessed 09/25/24 01/22/25 09:49 Patient Tobacco Use Status Never used Tobacco 01/22/25 09:49 Thrive Assessment: Date of Thrive Assessment Date Thrive assessed 01/22/25 01/22/25 09:49 Currently or been in a relationship where the following occur: No concerns reported Office Procedures Cerumen Removal From which ear canal was the cerumen removed: bilateral Removal: irrigation and otoscope w/curette Notes: patient tolerated procedure well, no complications and ear canal clear [id number] Wax Removal by Spoon/Curette Coding Level of Care Code Est Pt Level 5 (53241) Diagnoses CKD stage 3b, GFR 30-44 ml/min N18.32 PAF (paroxysmal atrial fibrillation) I48.0 Prediabetes R73.03 Excessive cerumen in both ear canals H61.23 Hearing difficulty of both ears H91.93 Primary hypertension I10 Hypertension type: primary hypertension Cardiac pacemaker in situ Z95.0 Status post transcatheter aortic valve replacement (TAVR) using bioprosthesis Z95.3 Osteoarthritis involving multiple joints on both sides of body M15.9 Multinodular goiter E04.2 Osteopenia, unspecified location M85.80 Osteopenia location: unspecified Urine, incontinence, stress female N39.3 Fatty liver K76.0 Class 1 obesity due to excess calories with serious comorbidity and body mass index (BMI) of 32.0 to 32.9 in adult E66.811; E66.09; Z68.32 Body mass index: BMI 32.0-32.9 Obesity classification: adult class 1 (BMI 30 - 34.9) Serious obesity comorbidity presence: with serious comorbidity Aspirin allergy Z88.8 History of bilateral knee replacement Z96.653 S/P complete hysterectomy Z90.710 Nephropathy N28.9 CPT Codes Office Procedure - CPT: 80948-Ovk Wax Removal by Spoon/Curette ([id number]) Additional Codes STANLEY-7 Assessment Billing - STANLEY-7 Assessment Tool: STANLEY-7 Assessment 56477 ([id number]) Time Spent (min) 40 Comment Reviewing chart/labs/ubjj-ky-jwiq with patient and /irrigation/coordination Assessment & Plan Assessment & Plan (1) CKD stage 3b, GFR 30-44 ml/min: Code(s): N18.32 - Chronic kidney disease, stage 3b Category: Medical (2) PAF (paroxysmal atrial fibrillation): Code(s): I48.0 - Paroxysmal atrial fibrillation Category: Medical (3) Prediabetes: Code(s): R73.03 - Prediabetes Category: Medical (4) Excessive cerumen in both ear canals: Code(s): H61.23 - Impacted cerumen, bilateral Category: Medical (5) Hearing difficulty of both ears: Code(s): H91.93 - Unspecified hearing loss, bilateral Category: Medical (6) HTN (hypertension): Code(s): I10 - Essential (primary) hypertension Category: Medical Qualifiers: Hypertension type: primary hypertension Qualified Code(s): I10 - Essential (primary) hypertension (7) Cardiac pacemaker in situ: Comment: Medtronic dual-chamber pacemaker placed, for postprocedure complete heart block Code(s): Z95.0 - Presence of cardiac pacemaker Category: Medical (8) Status post transcatheter aortic valve replacement (TAVR) using bioprosthesis: Comment: 23 mm Evolut valve. Mean gradient of 12 mmHg postprocedure Code(s): Z95.3 - Presence of xenogenic heart valve Category: Surgical (9) Osteoarthritis involving multiple joints on both sides of body: Code(s): M15.9 - Polyosteoarthritis, unspecified Category: Medical (10) Multinodular goiter: Code(s): E04.2 - Nontoxic multinodular goiter Category: Medical (11) Osteopenia: Code(s): M85.80 - Other specified disorders of bone density and structure, unspecified site Category: Medical Qualifiers: Osteopenia location: unspecified Qualified Code(s): M85.80 - Other specified disorders of bone density and structure, unspecified site (12) Urine, incontinence, stress female: Code(s): N39.3 - Stress incontinence (female) (male) Category: Medical (13) Fatty liver: Code(s): K76.0 - Fatty (change of) liver, not elsewhere classified Category: Medical (14) Obesity due to excess calories: Code(s): E66.09 - Other obesity due to excess calories Category: Medical Qualifiers: Body mass index: BMI 32.0-32.9 Obesity classification: adult class 1 (BMI 30 - 34.9) Serious obesity comorbidity presence: with serious comorbidity Qualified Code(s): E66.811 - Obesity, class 1; E66.09 - Other obesity due to excess calories; Z68.32 - Body mass index [BMI] 32.0-32.9, adult (15) Aspirin allergy: Code(s): Z88.8 - Allergy status to other drugs, medicaments and biological substances Category: Medical (16) History of bilateral knee replacement: Code(s): Z96.653 - Presence of artificial knee joint, bilateral Category: Surgical (17) S/P complete hysterectomy: Code(s): Z90.710 - Acquired absence of both cervix and uterus Category: Surgical (18) Nephropathy: Code(s): N28.9 - Disorder of kidney and ureter, unspecified Category: Medical Plan Chief Complaint Longitudinal follow-up appointment History of Present Illness The patient is an 84-year-old female presenting with cardiovascular issues and ear blockage. Cardiovascular follow-up: - The patient regularly follows up for cardiovascular care and is monitored by a marketing graphics specialist. - Medications include Eliquis, lisinopril, metoprolol, rosuvastatin, and torsemide. - She is set to have an appointment with the marketing graphics specialist on March 26 for further cardiovascular evaluation. - A pacemaker is in place, requiring periodic checking by the marketing graphics specialist. Compromised kidney function: - The patient has a history of kidney function compromise, noted since 2019, with a slight worsening over the years. - Although not new, she expresses lack of previous awareness about this issue. - No current manager of development is involved in her care; referral suggested during the visit. Hearing difficulty: - The patient reports a sensation of ear blockage in one ear, although hearing is generally fine. - She describes the ear feeling blocked occasionally but can usually hear well. Prediabetes: - The patient is identified as prediabetic, though not yet diabetic. Medical History: - Compromised kidney function since 2019. - Cardiovascular issues requiring a pacemaker. - Prediabetes. Surgical History: - Pacemaker placement. Medications: - Eliquis: managed for atrial fibrillation risk. - Lisinopril: for hypertension. - Metoprolol: for heart rate control. - Rosuvastatin: for cholesterol management. - Torsemide: diuretic for managing fluid retention. Diagnostic Results: - Labs: - Recent CBC showed no anemia. - Electrolytes within normal range. - Tests and diagnostics: - Kidney function has shown compromise, slightly worsened from the status in 2019. Problem List - Cardiovascular follow-up - Hearing difficulty, possible ear blockage - Compromised kidney function - Prediabetes Patient Instructions - Follow with marketing graphics specialist as scheduled for pacemaker and cardiovascular monitoring. - Book an appointment with a manager of development at [facility] for kidney assessment. - Consider ear cleaning every 3 months for ear cerumen - Maintain a healthy lifestyle to manage prediabetes and cardiovascular health. - Report any swelling or further hearing issues promptly. Orders: Referrals Nephrology Referral N18.32 - Chronic kidney disease, stage 3b, N28.9 - Disorder of kidney and ureter, unspecified
--- OUTSIDE RECORDS SUMMARY | 2025-01-22 10:50 | XMS_ITS | Patient Health Record ---
Author Organization [facility] Address [address] [place] [address] Care Team Providers Care Stock Driver Name Role Phone Baljit Mullen MD Primary Care Provider Janak Guzmán Unavailable [phone] Allergies Allergen (clinical drug ingredient) Drug/Non Drug Allergy documented on EMR Reaction Allergy Type Onset Date Status aspirin Aspirin Unknown Drug Allergy Active Reason For Referral No Information Medications Medication SIG (Take, Route, Frequency, Duration) Notes Start Date End Date Status Atorvastatin Calcium Active Lisinopril Active vitamin Active Co Enzyme Q-10 Activ e [id number]-[id number]-Boqq-D Activ e Fish Oil Active Osteo Bi-Flex [...] Disorder of joint of ankle and/or foot (808393067) Arthritis - Degenerative (719.97) Active confirmed Problem Hammer toe (388983210) Hammer toe (735.4) Active confirmed Problem Pain in limb (00641363) Pain in Limb (729.5) Active confirmed Plan [...] Inc [address] [place] [address] [phone] [id number] Mandy Ayala Self - patient is the insured [employer] [address] [place] [address] [phone] [id number] Mandy Ayala Self - patient is the insured Medical (General) History Medical History History ICD Code osteoarthritis asthma Broken bones Cancer Gall bladder problems High blood pressure Liver disease Surgical History Surgery Date(Month/Year) rotator cuff tear repair complete hysterectomy perforated gall bladder carpal karlene
--- OUTSIDE RECORDS SUMMARY | 2025-01-22 10:50 | XMS_ITS | Clinical Summary ---
Author Organization [facility] Address [address] [place] [address] Care Team Providers Care Fibreglass Lay Up Worker Name Role Phone Unavailable Primary Care Provider [...] Name Comments Heart disease Father Other Mother Antonio's disea se Other Sister PVD Relation Name [...]
--- OUTSIDE RECORDS SUMMARY | 2025-01-22 10:50 | XMS_ITS | Patient Health Record ---
Author Organization [facility] Address [address] [place] [address] Care Team Providers Care Foam Rubber Fabricator Name Role Phone Amari Garcia Unavailable [phone] Reason For Referral No Information Plan Of Treatment No Information
== END 2025-01-22 10:37 | disposition home or self-care (01) ==
LOC: HO.HMCC 09:43
PROVIDERS: PCP Internal Medicine; Visit Provider Internal Medicine
DX: I12.9 Hypertensive chronic kidney disease with stage 1 through stage 4 chronic kidney disease, or unspecified chronic kidney disease (principal); N18.32 Chronic kidney disease, stage 3b; I48.0 Paroxysmal atrial fibrillation; R73.03 Prediabetes; H61.23 Impacted cerumen, bilateral; H91.93 Unspecified hearing loss, bilateral; Z95.0 Presence of cardiac pacemaker; Z95.3 Presence of xenogenic heart valve; M15.9 Polyosteoarthritis, unspecified; E04.2 Nontoxic multinodular goiter; M85.80 Other specified disorders of bone density and structure, unspecified site; N39.3 Stress incontinence (female) (male)

== ENCOUNTER → 2025-01-22 09:43 | Outpatient (BNVA) | payer MEDICARE, SELFPAY ==
[2021-12-15 06:48] VITALS: BP 134/60; BP 138/62; BP 140/66; BMI 31.4
== END ==
PROVIDERS: PCP Internal Medicine; Visit Provider Internal Medicine
DX: I12.9 Hypertensive chronic kidney disease with stage 1 through stage 4 chronic kidney disease, or unspecified chronic kidney disease (principal); N18.32 Chronic kidney disease, stage 3b; I48.0 Paroxysmal atrial fibrillation; R73.03 Prediabetes; H61.23 Impacted cerumen, bilateral; M15.9 Polyosteoarthritis, unspecified; E04.2 Nontoxic multinodular goiter; M85.80 Other specified disorders of bone density and structure, unspecified site; N39.3 Stress incontinence (female) (male); K76.0 Fatty (change of) liver, not elsewhere classified; E66.811 Obesity, class 1; E66.09 Other obesity due to excess calories; Z68.32 Body mass index [BMI] 32.0-32.9, adult; N28.9 Disorder of kidney and ureter, unspecified; Z95.0 Presence of cardiac pacemaker; Z95.3 Presence of xenogenic heart valve; Z88.8 Allergy status to other drugs, medicaments and biological substances; Z96.653 Presence of artificial knee joint, bilateral; Z90.710 Acquired absence of both cervix and uterus; Z71.3 Dietary counseling and surveillance
CPT/HCPCS: 69210; 96127; 99212

== ENCOUNTER 2025-02-21 13:51 | Outpatient (AMB) | payer MEDICARE, SELFPAY ==
[2021-12-15 06:48] VITALS: BP 134/60; BP 138/62; BP 140/66; BMI 31.4
--- NOTE | 2025-02-21 14:00 | HO.NEPHOV ---
Vital Signs 02/21/25 14:01 02/21/25 14:20 Height 5 ft 3 in Weight 181 lb BMI 32.1 BP 150/72 H 122/56 L Blood Pressure Location Rt brachial Lt brachial Position Sitting Sitting Pulse 87 Pulse Source Pulse Oximeter Pulse Oximetry (%) 95 Oxygen Delivery Method Room Air Intake Visit Reasons: CKD-LVM Sanding Machine Operator Or Tender Required: No Accompanied by: Spouse Allergies aspirin Allergy (Unknown, Verified 02/21/25 14:02) asthma Egg Allergy (Unknown, Uncoded 09/25/24 10:56) Unknown Fluarix Allergy (Unknown, Uncoded 09/25/24 10:56) Unknown NSAIDs Allergy (Unknown, Uncoded 09/25/24 10:56) shortness of breath Shellfish Allergy (Unknown, Uncoded 09/25/24 10:56) Unknown Medication List - Last Reconciled 02/21/25 by Zak Kauffman MD apixaban (Eliquis) 5 mg PO BID lisinopril 2.5 mg PO DAILY metoprolol succinate ER 25 mg PO DAILY prednisone 1 mg PO BID rosuvastatin 5 mg PO DAILY torsemide 30 mg PO DAILY vitamin E mixed units PO HPI Comments Details: The patient is an 84-year-old female presenting for evaluation of kidney function and management of chronic conditions. Chronic kidney disease is noted with creatinine levels rising from 0.96 in 2020 to 1.4-1.5, indicating 35% kidney function. Diuretics are used for heart condition management, affecting kidney function. History of heart failure and paroxysmal atrial fibrillation, managed with a pacemaker and aortic valve replacement. Torsemide adjusted from 40 mg to 30 mg, now reduced to 20 mg, controls leg swelling. Blood pressure initially 150/72 mmHg, improved to 122/50 mmHg after rest. Denies shortness of breath, weight stable at 182 pounds. Medical History: - Chronic kidney disease - Heart failure - Paroxysmal atrial fibrillation - Hypertension - Pacemaker placement - Aortic valve replacement Surgical History: - Knee replacement - Hysterectomy - Gallbladder removal - Aortic valve replacement Medications: - Lisinopril 2.5 mg for hypertension - Metoprolol for heart rate control - Prednisone 1 mg twice daily for pain management - Rosuvastatin for cholesterol management - Torsemide for fluid management, currently on 30mg and used to be on 40 mg Social History: - Does not smoke or consume alcohol - Eats breakfast daily, typically eggs and meat, with caution advised on salt intake - Engages in morning rides with sister Diagnostic Results: - Creatinine levels: 0.96 in 2020, increased to 1.4-1.5 recently [facility] Medical History Cardiac pacemaker in situ Aortic stenosis PAF (paroxysmal atrial fibrillation) HTN (hypertension) Surgical History Status post transcatheter aortic valve replacement (TAVR) using bioprosthesis S/P cardiac cath History of carpal tunnel release Hx of knee surgery Hx of colonoscopy Hx of breast surgery History of tonsillectomy and adenoidectomy Hx of total hysterectomy Hx of cholecystectomy Family History Father CVD (cardiovascular disease) Mother No problems noted. Sister CVD (cardiovascular disease) Social History Housing: House Patient Tobacco Use Status: Never used Tobacco service: No Current occupational status: retired Cognitive needs: No Hearing needs: No Vision needs: Yes Review of Systems Const Denies fever(s) and Denies weight loss Card Denies chest pain Resp Denies cough and Denies hemoptysis GI Denies abdominal pain, Denies diarrhea and Denies nausea Musc Denies back pain Neuro Denies focal weakness Physical Exam Vital Signs: Last Vital Signs Pulse 87 02/21/25 14:01 BP 122/56 L 02/21/25 14:20 Pulse Ox 95 02/21/25 14:01 Oxygen Delivery Method Room Air 02/21/25 14:01 BMI result Body Mass Index 32.1 Comfortable Neck supple no JVD. Lungs entry equal no rales. Heart S1-S2 heard no gallop or rub. Abdomen soft nontender. Neuro alert awake oriented. No asterixis. Extremities no edema. Results Reviewed Nephrology Results: Hgb, (12.0-16.0) 12.4 g/dl 02/21/25 WBC, (4.8-10.8) 8.3 X10*3/uL 02/21/25 Plt Count, (160-400) 177 X10*3/uL 02/21/25 Sodium, (135-145) 145 mmol/L 01/04/25 Potassium, (3.3-5.1) 3.8 mmol/L 01/04/25 Chloride, (96-108) 104 mmol/L 01/04/25 Carbon Dioxide, (22-29) 30 mmol/L H 01/04/25 BUN, (9-16) 27 mg/dL H 02/21/25 Creatinine, (0.5-1.4) 1.46 mg/dL H 01/04/25 Calcium, (8.4-10.2) 9.0 mg/dL Δ 01/04/25 Urine Protein, (Neg-Trace) Negative mg/dL 02/21/25 Urine Creatinine 30.43 mg/dL 02/21/25 Assessment & Plan Assessment & Plan (1) CKD stage 3b, GFR 30-44 ml/min: Code(s): N18.32 - Chronic kidney disease, stage 3b Category: Medical Plan 1. 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 Monitor kidney function with regular blood tests. - Encourage low-salt diet. 2. Heart Failure and Paroxysmal Atrial Fibrillation - Continue heart failure management with pacemaker and medications. - Monitor for fluid overload symptoms. 4. Hypertension BP acceptable - Monitor blood pressure and adjust therapy as needed. Orders: Orders Blood Urea Nitrogen 02/21/25 N18.32 - Chronic kidney disease, stage 3b, N18.4 - Chronic kidney disease, stage 4 (severe) UA and rflx microscopic 02/21/25 N18.32 - Chronic kidney disease, stage 3b Basic Metabolic Panel 4 Weeks N18.32 - Chronic kidney disease, stage 3b Creatinine Urine 02/21/25 N18.32 - Chronic kidney disease, stage 3b Total Protein Urine Random 02/21/25 N18.32 - Chronic kidney disease, stage 3b Complete Blood Count Auto Diff 02/21/25 N18.32 - Chronic kidney disease, stage 3b Coding Level of Care Code New Pt Level 4 (63474) Diagnoses CKD stage 3b, GFR 30-44 ml/min N18.32
[2025-02-21 14:01] VITALS: BP 150/72; PULSE 87; O2SAT 95; BMI 32.1
[2025-02-21 14:20] VITALS: BP 122/56
--- OUTSIDE RECORDS SUMMARY | 2025-02-21 15:56 | XMS_ITS | Clinical Summary ---
Author Organization [facility] Address [address] [place] [address] Care Team Providers Care Area Loss Prevention Manager Name Role Phone Unavailable Primary Care [...] Name Comments Heart disease Father Other Mother [place]'s disea se Other Sister PVD Relation Name [...]
== END 2025-02-21 14:30 | disposition home or self-care (01) ==
LOC: HO.HKA 13:52
PROVIDERS: PCP Internal Medicine; Visit Provider Internal Medicine Hypertension Specialist
DX: N18.32 Chronic kidney disease, stage 3b (principal)
CPT/HCPCS: 99204

== ENCOUNTER 2025-02-21 13:51 | Outpatient (REF) | payer MEDICARE, SELFPAY ==
[2021-12-15 06:48] VITALS: BP 134/60; BP 138/62; BP 140/66; BMI 31.4
[2025-02-21 15:32] LABS: MANUAL DIFF FLAG NO
[2025-02-21 17:02] LABS: Hematocrit 37.6 % (37.0-47.0); Hemoglobin 12.4 g/dl (12.0-16.0); Imm Gran Abs Auto 0.03 X10*3/uL (0.00-0.03); Imm Gran Pct Auto 0.4 % (0.0-0.4); Lymphocytes Absolute Auto 1.9 X10*3/uL (1.2-4.9); Mean Corpuscular HGB Conc 33.0 g/dl (31.0-35.0); Mean Corpuscular Hemoglobin 31.9 pg (27.0-33.0); Mean Corpuscular Volume 96.7 fL (80.0-98.0); NRBC Abs Auto 0.000 X10*3/uL (0.0-0.012); NRBC Pct Auto 0.0 /100WBC (0.0-0.2); Platelet Count 177 X10*3/uL (160-400); Red Blood Count 3.89 X10*6/uL (4.20-5.50); White Blood Count 8.3 X10*3/uL (4.8-10.8)
[2025-02-21 17:23] LABS: Appearance Urine Clear; Glucose Urine UA Negative (Negative); PH 5.0 (5.0-9.0); Specific Gravity - Urine <= 1.005 (1.005-1.025)
[2025-02-21 17:40] LABS: Blood Urea Nitrogen 27 mg/dL (9-16)
[2025-02-21 18:37] LABS: Total Protein Urine Random < 7 mg/dL (<12)
== END 2025-02-21 13:52 | disposition home or self-care (01) ==
LOC: HO.LAB 13:51
PROVIDERS: PCP Internal Medicine; Visit Provider Internal Medicine Hypertension Specialist
DX: I13.0 Hypertensive heart and chronic kidney disease with heart failure and stage 1 through stage 4 chronic kidney disease, or unspecified chronic kidney disease (principal); N18.32 Chronic kidney disease, stage 3b; N18.4 Chronic kidney disease, stage 4 (severe); I50.9 Heart failure, unspecified; Z79.899 Other long term (current) drug therapy
CPT/HCPCS: 36415; 81003; 82570; 84156; 84520; 85025; 99202

== ENCOUNTER 2025-03-26 12:37 | Outpatient (AMB) | payer MEDICARE, SELFPAY ==
[2021-12-15 06:48] VITALS: BP 134/60; BP 138/62; BP 140/66; BMI 31.4
[2025-03-26 12:45] VITALS: BP 120/74; PULSE 78; BMI 31.6
--- NOTE | 2025-03-26 12:45 | MHC.OFFVIS ---
Vital Signs 03/26/25 12:45 Height 5 ft 3 in Weight 178 lb 9.191 oz BMI 31.6 BP 120/74 Blood Pressure Location Lt brachial Position Sitting Pulse 78 Intake Visit Reasons: 6m pacer check/Medtronic/EKG Intake Note: 6 month follow-up with ekg and Medtronic feeling good Laundry Machine Mechanic Required: No Allergies aspirin Allergy (Unknown, Verified 02/21/25 14:02) asthma Egg Allergy (Unknown, Uncoded 09/25/24 10:56) Unknown Fluarix Allergy (Unknown, Uncoded 09/25/24 10:56) Unknown NSAIDs Allergy (Unknown, Uncoded 09/25/24 10:56) shortness of breath Shellfish Allergy (Unknown, Uncoded 09/25/24 10:56) Unknown Medication List - Last Reconciled 03/26/25 by Glen Jewell MD apixaban (Eliquis) 5 mg PO BID lisinopril 2.5 mg PO DAILY metoprolol succinate ER 25 mg PO DAILY prednisone 1 mg PO BID rosuvastatin 5 mg PO DAILY torsemide 20 mg PO DAILY vitamin E mixed units PO HPI Comments Details: Mandy comes for follow-up, accompanied by her . Overall from cardiac perspective she has been doing well. She has not cardiac complaints. She does not exercise on a regular basis. She has no issues with exertion. Denies any exertional shortness of breath. No exertional chest pain. No orthopnea, PND, leg edema. No lightheadedness, syncope. No prolonged palpitation irregular heartbeat. Bleeding issues or neurologic events. Takes all her medications. [facility] Medical History Cardiac pacemaker in situ Aortic stenosis PAF (paroxysmal atrial fibrillation) HTN (hypertension) Surgical History Status post transcatheter aortic valve replacement (TAVR) using bioprosthesis S/P cardiac cath History of carpal tunnel release Hx of knee surgery Hx of colonoscopy Hx of breast surgery History of tonsillectomy and adenoidectomy Hx of total hysterectomy Hx of cholecystectomy Family History Father CVD (cardiovascular disease) Mother No problems noted. Sister CVD (cardiovascular disease) Social History Housing: House Patient Tobacco Use Status: Never used Tobacco service: No Current occupational status: retired Cognitive needs: No Hearing needs: No Vision needs: Yes Review of Systems Const Denies chills, Denies fatigue, Denies fever(s), Denies frequent falls, Denies weakness, Denies weight gain and Denies weight loss ENT Denies dizziness Card Denies chest pain, Denies leg edema, Denies lightheadedness, Denies palpitations, Denies dyspnea, Denies dyspnea on exertion, Denies orthopnea and Denies other (loss of consciousness) Resp Denies cough, Denies dyspnea and Denies dyspnea on exertion GI Denies hematochezia and Denies change in stool character Musc Denies abnormal gait, Denies muscle weakness, Denies numbness, Denies radiating pain into limb and Denies tingling Neuro Denies abnormal gait, Denies dizziness, Denies frequent falls, Denies numbness, Denies tingling and Denies weakness Endo Denies fatigue and Denies palpitations Physical Exam Vital Signs: Last Vital Signs Pulse 78 03/26/25 12:45 BP 120/74 03/26/25 12:45 BMI result Body Mass Index 31.6 Const General: cooperative, comfortable, no acute distress, alert and awake Nutritional Appearance: overweight Orientation/consciousness: patient oriented x3 Limitations: no limitations Neck Neck: Yes trachea midline, Yes supple and Yes no JVD (Mild abdominal jugular reflux) Resp Effort & Inspection: normal respiratory effort Auscultation: clear to auscultation bilaterally Cardio Jugular venous distension: no JVD Palpation: normal PMI Rate: regular rate Rhythm: regular rhythm Heart sounds: S1 normal heart sound present, S2 abnormal, no click, no gallops, Murmur heart sound present systolic early and Other heart sounds present (S4 present) Peripheral pulses: Peripheral pulses 2+ throughout GI Auscultation: normal bowel sounds Skin General skin exam: no rashes or lesions noted Neuro General: patient oriented x3 Extrem General: No clubbing, No cyanosis and Yes edema Office Procedures Cardiac Device Check Cardiac Device Check Details: Dual-chamber pacemaker placed. Programmed in MVP mode with rate response. Programmed at 50 beats per minute. Ventricular pacing 100% of time. Atrial sensing was adequate. Atrial ventricular pacing thresholds adequate and reprogrammed to enhance battery life. Pacing lead impedance is stable. No arrhythmias noted. Battery life is at 9.8 years 36155-EM Cardiac Device Check, pacemaker dual lead Procedure code (CPT) selection complete EKG Details: EKG shows AV dual paced rhythm 03828-Veyywkglaniyvyneq, Complete Assessment & Plan Assessment & Plan (1) Status post transcatheter aortic valve replacement (TAVR) using bioprosthesis: Comment: 23 mm Evolut valve. Mean gradient of 12 mmHg postprocedure Code(s): Z95.3 - Presence of xenogenic heart valve Category: Surgical Plan: Status post transcatheter aortic valve replacement which is working well both clinically and by echocardiogram. Continue full oral anticoagulation as before. SBE prophylaxis as per ACC/aha guidelines. Follow-up echocardiogram in 6 months time. (2) PAF (paroxysmal atrial fibrillation): Code(s): I48.0 - Paroxysmal atrial fibrillation Category: Medical Plan: Paroxysmal atrial fibrillation which has remained suppressed on current therapy. Continue metoprolol therapy. Avoidance of stimulants was discussed. Continue full oral anticoagulation, currently on Eliquis 5 mg b.i.d.. Quarterly renal function test should be pursued creatinine goes about 1.5 will need reduction her Eliquis dose to 2.5 mg b.i.d.. (3) Cardiac pacemaker in situ: Comment: Medtronic dual-chamber pacemaker placed, for postprocedure complete heart block Code(s): Z95.0 - Presence of cardiac pacemaker Category: Medical Plan: Dual-chamber pacemaker in place for complete heart block. Patient pacer dependent in the ventricle. Battery life is adequate. Pacemaker is functioning well. Will follow remotely every 3 months. Follow up in the clinic in 6 months time, sooner p.r.n.. Thank you for allowing me to partake in her care Orders: Orders CA echo transthoracic complete 6 Months Z95.3 - Presence of xenogenic heart valve Coding Level of Care Code Est Pt Level 4 (87407) Complex EM visit Add On G2211 Diagnoses Status post transcatheter aortic valve replacement (TAVR) using bioprosthesis Z95.3 PAF (paroxysmal atrial fibrillation) I48.0 Cardiac pacemaker in situ Z95.0 CPT Codes Cardiac Device Check - Cardiac Device 2: [id number]-MW Cardiac Device Check, pacemaker dual lead ([id number]) EKG - CPT: 39047-Qllvxynnlrndtjkym, Complete ([id number])
== END 2025-03-26 13:07 | disposition home or self-care (01) ==
LOC: HO.HCS 12:39
PROVIDERS: PCP Internal Medicine; Visit Provider Internal Medicine Cardiovascular Disease
DX: I48.0 Paroxysmal atrial fibrillation (principal); Z95.3 Presence of xenogenic heart valve; Z95.0 Presence of cardiac pacemaker
CPT/HCPCS: 93010; 93280; 99214; G2211

== ENCOUNTER 2025-03-26 12:37 | Outpatient (REF) | payer MEDICARE, SELFPAY ==
[2021-12-15 06:48] VITALS: BP 134/60; BP 138/62; BP 140/66; BMI 31.4
--- OUTSIDE RECORDS SUMMARY | 2024-03-14 09:45 | XMS_ITS ---
Author Organization [facility] Address [address] [place], [place] [id number] Care Team Providers Care Exec. Creative Director Name Role Phone HELLEN HUSSEIN Primary Care Provider [phone] ALLERGIES Allergen (clinical drug ingredient) Drug/Non Drug [...] 03/14/2024 Encounters Encounter Location Date Provider Diagnosis [facility] [address] [place] [address] 03/14/2024 HELLEN HUSSEIN Paroxysmal atrial fibrillation I48.0 [...]
--- OUTSIDE RECORDS SUMMARY | 2024-03-22 05:19 | XMS_ITS ---
Author Organization [facility] Address [address] [place], [place] [id number] Care Team Providers Care Aircraft Captain Name Role Phone HELLEN HUSSEIN Primary Care Provider [phone] REASON FOR VISIT code alternate for BMD Encounters Encounter Location Date Provider Diagnosis [facility] [address] [place] [address] 03/22/2024 HELLEN HUSSEIN Other specified disorders of [...]
--- OUTSIDE RECORDS SUMMARY | 2024-03-27 08:22 | XMS_ITS ---
Author Organization [facility] Address [address] [place], [place] [id number] Care Team Providers Care Mud Engineer Name Role Phone HELLEN HUSSEIN Primary Care Provider REASON FOR VISIT (2) new dx for bone density Encounters Encounter Location Date Provider Diagnosis [facility] [address] [place] [address] 03/27/2024 HELLEN HUSSEIN Other specified disorders of [...]
--- OUTSIDE RECORDS SUMMARY | 2024-05-15 16:46 | XMS_ITS ---
Author Organization [facility] Address [address] [place], [place] [id number] Care Team Providers Care Quickbooks Bookkeeper Name Role Phone HELLEN HUSSEIN Primary Care Provider REASON FOR REFERRAL Reason 08/15/24 w appt New patient appt Diagnosis 1 Other specified diso rders of bone density and structure, unspecified site (M85.80) Referral Organization [facility] Referring Provider First Name HELLEN Referring Provider Last Name KEENAN Referring Provider Speciality Internal M edicine Referred Provider ALEJANDRO BO Referred Provider Specialty Internal Med icine General Notes Colette WOODSON Admin 05/2025 09:57:34 AM > faxed medical referral, notes and bone density scan from 05/29 to [facility] at [phone]>no referral required with pt's insurance plan Referral Priority Routine REASON FOR VISIT (2) Bone density Encounters Encounter Location Date Provider Diagnosis [facility] [address] [place] [phone] 05/15/2024 HELLEN KEENAN Other specified disorders of [...]
--- OUTSIDE RECORDS SUMMARY | 2024-05-16 10:20 | XMS_ITS ---
Author Organization [facility] Address [address] [place], [place] [id number] Care Team Providers Care Ink Technician Name Role Phone HELLEN UHSSEIN Primary Care Provider [phone] REASON FOR VISIT left shoulder, upper arm pain Encounters Encounter Location Date Provider Diagnosis [facility] [address] [place] [address] 05/16/2024 HELLEN HUSSEIN PLAN OF TREATMENT No Information
--- OUTSIDE RECORDS SUMMARY | 2024-08-15 05:15 | XMS_ITS ---
Author Organization [facility] Address [address] [place], [place] [id number] Care Team Providers Care Insole Reinforcer Name Role Phone HELLEN HUSSEIN Primary Care [...] 08/15/2024 Encounters Encounter Location Date Provider Diagnosis [facility] [address] [place] [address] 08/15/2024 HELLEN MENDEZFORD Essential (primary) hypertension I10 [...]
--- OUTSIDE RECORDS SUMMARY | 2024-08-15 05:23 | XMS_ITS ---
Author Organization [facility] Address [address] [place], [place] [id number] Care Team Providers Care Scraper Hand Name Role Phone HELLEN HUSSEIN Primary Care Provider REASON FOR VISIT Bone density Encounters Encounter Location Date Provider Diagnosis [facility] [address] [id number] 08/15/2024 HELLEN HUSSEIN PLAN OF TREATMENT No Information
--- OUTSIDE RECORDS SUMMARY | 2024-12-14 05:15 | XMS_ITS ---
Author Organization [facility] Address [address] [place], [place] [id number] Care Team Providers Care Blueprint Duplicator Name Role Phone HELLEN HUSSEIN Primary Care Provider [phone] ALLERGIES Allergen (clinical drug ingredient) Drug/Non Drug [...] 12/14/2024 Encounters Encounter Location Date Provider Diagnosis [facility] [address] [place] [address] 12/14/2024 HELLEN HUSSEIN Paroxysmal atrial fibrillation I48.0 [...]
--- OUTSIDE RECORDS SUMMARY | 2025-03-14 07:15 | XMS_ITS ---
Author Organization [facility] Address [address], [place] [address] Care Team Providers Care Loading Unit Operator Seating Name Role Phone HELLEN HUSSEIN Primary Care Provider [phone] REASON FOR VISIT 41/ 3mo Encounters Encounter Location Date Provider Diagnosis [facility] [address] [place] [address] 03/14/2025 HELLEN HUSSEIN PLAN OF TREATMENT No Information
[2025-03-26 14:27] LABS: Anion Gap 14 (12-20); Blood Urea Nitrogen 29 mg/dL (9-16); Calcium 9.6 mg/dL (8.4-10.2); Carbon Dioxide 30 mmol/L (22-29); Chloride 105 mmol/L (96-108); Estimated Glomerular Filt Rate 37; Potassium 5.0 mmol/L (3.3-5.1); Sodium 144 mmol/L (135-145)
--- OUTSIDE RECORDS SUMMARY | 2025-03-26 17:06 | XMS_ITS | Patient Health Record ---
Author Organization [facility] Address [address] [place], [place] [address] Care Team Providers Care Box Spring Frame Builder Name Role Phone KEENAN HELLEN Primary Care Provider ALLERGIES Allergen (clinical drug ingredient) Drug/Non Drug Allergy documented on EMR Reaction Allergy Type Onset Date Status POTATOES ( RAW) (uncoded) Unknown Allergy Active aspirin Aspirin Unknown Drug Allergy Active Eggs or Egg-derived Products Unknown Drug Allergy Active Non-steroidal anti-inflammatory agent (FN) NSAIDs Unknown Drug Allergy Active REASON FOR REFERRAL Reason 08/15/24 w appt New patient appt Diagnosis 1 Other specified diso rders of bone density and structure, unspecified site (M85.80) [facility] Referring Provider First Name HELLEN Referring Provider Last Name KEENAN Referring Provider Speciality Internal M edicine Referred Provider ALEJANDRO BO Referred Provider Specialty Internal Med icine General Notes Colette WOODSON Admin 05/2025 09:57:34 AM > faxed medical referral, notes and bone density scan from 05/29 to [facility] at [phone]>no referral required with pt's insurance plan Referral Priority Routine MEDICATIONS Medication SIG (Take, Route, Frequency, Duration) [...] ice a day for 90 days Active IMMUNIZATIONS Vaccine Route Administration Date Status Comme nts Covid Unknown 09/04/2020 Administered Covid Unknown 03/01/2022 Administered Influenza, Flublok IM Intramuscular 03/14/2024 Administere d Pfizer COVID-19,mRNA, LNP-S, PF, 30mcg/0.3mL dose Unknown 08/07/2020 Administered SOCIAL HISTORY Tobacco Use: Social History Observation Description Date Details (start date - stop date) Never Smoker NA - NA Sex Assigned At : Social History Observation Description Sex Assigned At Unknown Smoking Question Answer Notes Are you a: never smoker Alcohol Screen Question Answer Notes Did you have a drink containing alcohol in the p ast year? 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) Active confirmed 455189660 Problem Hypercholesterolemia (E78.00) Active confirmed 03544445 Problem Age related osteoporosis, unspecified pathological fracture presence (M81.0) Active confirmed 124211563 Problem Aortic valve stenosi s, etiology of cardiac valve disease unspecified (I35.0) Active confirmed 64171803 Problem 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) Active confirmed 864742987 VITAL SIGNS Blood pressure diastolic 70 mm Hg 12/14/2024 Height 63.00 in 12/14/2024 Blood pressure systolic 124 mm Hg 12/14/2024 Weight 180.8 lbs 12/14/2024 BMI 32.02 kg/m2 12/14/2024 Encounters Encounter Location Date Provider Diagnosis [facility] [address] [place] [address] 03/27/2024 [facility] Other specified disorders of bone density and structure, unspecified site M85.80 and Asymptomatic menopausal state Z78.0 [facility] [address] [place] [address], [place] [id number] 05/15/2024 [facility] Other specified disorders of bone density and structure, unspecified site M85.80 and Asymptomatic menopausal state Z78.0 [facility] [address] [place] [address], [place] [id number] 05/16/2024 [facility] [address] [place] [address], [place] [id number] 08/15/2024 [facility] Essential (primary) hypertension I10 ; Paroxysmal atrial fibrillation I48.0 ; Polymyalgia rheumatica M35.3 ; Mild neurocognitive disorder G31.84 and Age related osteoporosis, unspecified pathological fracture presence M81.0 [facility] [address] [place] [address], [place] [phone] 08/15/[address] [place] [id number] 12/14/2024 [facility] Paroxysmal atrial fibrillation I48.0 ; Polymyalgia rheumatica M35.3 ; Essential (primary) hypertension I10 and Mild neurocognitive disorder G31.[address] [place] [id number] 01/22/[address] [place] [id number] 03/14/2025 [facility] ASSESSMENTS Encounter Date Diagnosis Assessment Notes Treatment [...] regard 5. Age-related osteoporosis: Awaiting endocrine appointment. 03/27/2024 Other specified disorders of bone density and structure, unspecified site (ICD-10 - M85.80) 03/27/2024 Asymptomatic menopausal state (ICD-10 - Z78.0) 05/15/2024 Other specified disorders of bone density and structure, unspecified site (ICD-10 - M85.80) 05/15/2024 Asymptomatic menopausal state (ICD-10 - Z78.0) 12/14/2024 Paroxysmal atrial fibrillation (ICD-10 - I48.0) [...] unfortunately did not tolerate Aricept or Namenda 08/15/2024 Polymyalgia rheumatica (ICD-10 - M35.3) 1. [...] regard 5. Age-related osteoporosis: Awaiting endocrine appointment. 12/14/2024 Mild neurocognitive disorder (ICD-10 - G31.84) [...] unfortunately did not tolerate Aricept or Namenda 08/15/2024 Age related osteoporosis, unspecified pathological fracture [...] osteoporosis: Awaiting endocrine appointment. PLAN OF TREATMENT Pending Test Test Name Order Date Bone Density 2 site DEXA 03/22/2024 Future Test Test Name Order Date TSH WITH REFLEX TO FT4 02/25/2021 Insurance Providers Payer Name Payer Address Payer Phone Subscriber Number Group Number Insured Name Patient Relationship to Insured Coverage Start Date Coverage End Date MEDICARE CT [employer] [address] [place] [address] [phone] [id number] SHMUEL SEBASTIAN Self - patient is the insured [employer] [address] [place] [address] [phone] [id number] SHMUEL SEBASTIAN Self - patient is the insured MEDICAL (GENERAL) HISTORY Medical History History ICD Code allergies asthma melanoma hypercholesterolemia Hypertension fatty liver osteopenia - s/p fx foot/spine fx thyroid nodule - 2.8 cm left upper lobe, bx 2015 - BFCs - mixed macro/micro c/w hyperplastic nodule; stable u/s 2020 atrial fibrillation - Best moderate , mild AI PMR - 2018 - Grieger arthritis GERD prediabetes cervicalgia Surgical History Surgery Date(Month/Year) aortic valve replacement TAVR 08/28/2021 complete heart block: pacemaker melanoma left total knee replacement right total knee replacement 09/2016 breast lump carpal tunnel release tonsillectomy rotator cuff appendectomy gallbladder hysterectomy, total
--- OUTSIDE RECORDS SUMMARY | 2025-03-26 17:07 | XMS_ITS | Patient Health Record ---
Author [facility] Address [address] [place] [address] Care Team Providers Care Milking Worker Name Role Phone Baljit Mullen MD Primary Care Provider Janak Wing Unavailable [phone] Allergies Allergen (clinical drug ingredient) Drug/Non Drug Allergy documented on EMR Reaction Allergy Type Onset Date Status aspirin Aspirin Unknown Drug Allergy Active Reason For Referral No Information Medications Medication SIG (Take, Route, Frequency, Duration) Notes Start Date End Date Status Atorvastatin Calcium Active Lisinopril Active vitamin Active Co Enzyme Q-10 Activ e [id number]-[id number]-D Activ e Fish Oil Active Osteo Bi-Flex [...] Disorder of joint of ankle and/or foot (459497899) Arthritis - Degenerative (719.97) Active confirmed Problem Hammer toe (173365546) Hammer toe (735.4) Active confirmed Problem Pain in limb (23081051) Pain in Limb (729.5) Active confirmed Plan Of Treatment Pending Test Test Name Order Date X ray : Foot, left 2V 09/18/2014 X ray : Foot, right 2V 09/18/2014 Insurance Providers Payer Name Payer Address Payer Phone Subscriber Number Group Number Insured Name Patient Relationship to Insured Coverage Start Date Coverage End Date Medicare [employer] [address] [place] [phone] [id number] Mandy Ayala Self - patient is the insured [employer] [address] [place] [address] [id number] Mandy Ayala Self - patient is the insured Medical (General) History Medical History History ICD Code osteoarthritis asthma Broken bones Cancer Gall bladder problems High blood pressure Liver disease Surgical History Surgery Date(Month/Year) rotator cuff tear repair complete hysterectomy perforated gall bladder carpal karlene
--- OUTSIDE RECORDS SUMMARY | 2025-03-26 17:07 | XMS_ITS | Clinical Summary ---
Author Organization [facility] Address [address] [place] [address] Care Team Providers Care Sash Repairer Name Role Phone Unavailable Primary Care Provider [...]
--- OUTSIDE RECORDS SUMMARY | 2025-03-26 17:07 | XMS_ITS | Patient Health Record ---
Author Organization [facility] Address [address] [place] [address] Care Team Providers Care Airport Baggage Screener Name Role Phone Amari Garcia Unavailable [phone] Reason For Referral No Information Plan Of Treatment No Information
== END 2025-03-26 12:38 | disposition home or self-care (01) ==
LOC: HO.LAB 12:37
PROVIDERS: Absent Provider Internal Medicine Hypertension Specialist; PCP Internal Medicine; Visit Provider Internal Medicine Cardiovascular Disease
DX: Z45.018 Encounter for adjustment and management of other part of cardiac pacemaker (principal); I48.0 Paroxysmal atrial fibrillation; I44.2 Atrioventricular block, complete; N18.32 Chronic kidney disease, stage 3b; Z79.01 Long term (current) use of anticoagulants; Z95.3 Presence of xenogenic heart valve
CPT/HCPCS: 36415; 80048; 93005; 93280; 99212

== ENCOUNTER 2025-04-01 14:07 | Outpatient (AMB) | payer MEDICARE, SELFPAY ==
[2021-12-15 06:48] VITALS: BP 134/60; BP 138/62; BP 140/66; BMI 31.4
--- OUTSIDE RECORDS SUMMARY | 2024-03-14 09:45 | XMS_ITS ---
Author Organization [facility] Address [address] [place], [place] [id number] Care Team Providers Care Auto Research Engineer Name Role Phone HELLEN HUSSEIN Primary Care Provider ALLERGIES Allergen (clinical drug ingredient) Drug/Non Drug [...] 03/14/2024 Encounters Encounter Location Date Provider Diagnosis [facility] [address] [place] [address] 03/14/2024 HELLEN HUSSEIN Paroxysmal atrial fibrillation I48.0 [...]
--- OUTSIDE RECORDS SUMMARY | 2024-03-22 05:19 | XMS_ITS ---
Author Organization [facility] Address [address] [place], [place] [id number] Care Team Providers Care School Cafeteria Head Cook Name Role Phone HELLEN HUSSEIN Primary Care Provider [phone] REASON FOR VISIT code alternate for BMD Encounters Encounter Location Date Provider Diagnosis [facility] [address] [place] [address] 03/22/2024 HELLEN HUSSEIN Other specified disorders of [...]
--- OUTSIDE RECORDS SUMMARY | 2024-03-27 08:22 | XMS_ITS ---
Author Organization [facility] Address [address] [place], [place] [id number] Care Team Providers Care Dining Chair Seat Cushion Trimmer Name Role Phone HELLEN HUSSEIN Primary Care Provider REASON FOR VISIT (2) new dx for bone density Encounters Encounter Location Date Provider Diagnosis [facility] [address] [place] [address] 03/27/2024 HELLEN HUSSEIN Other specified disorders of [...]
--- OUTSIDE RECORDS SUMMARY | 2024-05-15 16:46 | XMS_ITS ---
Author Organization [facility] Address [address] [place], [place] [phone] Care Team Providers Care Tool Hardener Name Role Phone HELLEN HUSSEIN Primary Care Provider [phone] REASON FOR REFERRAL Reason 08/15/24 w appt New patient appt Diagnosis 1 Other specified diso rders of bone density and structure, unspecified site (M85.80) Referral Organization [facility] Referring Provider First Name HELLEN Referring Provider Last Name KEENAN Referring Provider Speciality Internal M edicine Referred Provider ALEJANDRO BO Referred Provider Specialty Internal Med icine General Notes Colette WOODSON Admin 05/2025 09:57:34 AM > faxed medical referral, notes and bone density scan from 05/29 to [facility] at [phone]>no referral required with pt's insurance plan Referral Priority Routine REASON FOR VISIT (2) Bone density Encounters Encounter Location Date Provider Diagnosis [facility] [address] [place] [phone] 05/15/2024 HELLEN KEENAN Other specified disorders of [...]
--- OUTSIDE RECORDS SUMMARY | 2024-05-16 10:20 | XMS_ITS ---
Author Organization [facility] Address [address] [place], [place] [id number] Care Team Providers Care Tmr Teacher Name Role Phone HELLEN HUSSEIN Primary Care Provider [phone] REASON FOR VISIT left shoulder, upper arm pain Encounters Encounter Location Date Provider Diagnosis [facility] [address] [place] [address] 05/16/2024 HELLEN HUSSEIN PLAN OF TREATMENT No Information
--- OUTSIDE RECORDS SUMMARY | 2024-08-15 05:15 | XMS_ITS ---
Author Organization [facility] Address [address], [place] [id number] Care Team Providers Care Electromyographic Technician Name Role Phone HELLEN HUSSEIN Primary Care [...] 08/15/2024 Encounters Encounter Location Date Provider Diagnosis [facility] [address] [place] [address] 08/15/2024 HELLEN MENDEZFORD Essential (primary) hypertension I10 [...]
--- OUTSIDE RECORDS SUMMARY | 2024-08-15 05:23 | XMS_ITS ---
Author Organization [facility] Address [address] [place], [place] [id number] Care Team Providers Care Professor Of Theater Name Role Phone HELLEN HUSSEIN Primary Care Provider REASON FOR VISIT Bone density Encounters Encounter Location Date Provider Diagnosis [facility] [address] [id number] 08/15/2024 HELLEN HUSSEIN PLAN OF TREATMENT No Information
--- OUTSIDE RECORDS SUMMARY | 2024-12-14 05:15 | XMS_ITS ---
Author Organization [facility] Address [address] [place], [place] [id number] Care Team Providers Care Pumper Gager Name Role Phone HELLEN HUSSEIN Primary Care [...] 12/14/2024 Encounters Encounter Location Date Provider Diagnosis [facility] [address] [place] [address] 12/14/2024 HELLEN HUSSEIN Paroxysmal atrial fibrillation I48.0 [...]
--- OUTSIDE RECORDS SUMMARY | 2025-01-22 11:46 | XMS_ITS ---
Author Organization [facility] Address [address] [place], [place] [id number] Care Team Providers Care Engineering Recruiter Name Role Phone HELLEN HUSSEIN Primary Care Provider REASON FOR VISIT Leaving Practice Encounters Encounter Location Date Provider Diagnosis [facility] [address] [phone] 01/22/2025 HELLEN HUSSEIN PLAN OF TREATMENT No Information
--- OUTSIDE RECORDS SUMMARY | 2025-03-14 07:15 | XMS_ITS ---
Author Organization [facility] Address [address] [place], [place] [address] Care Team Providers Care Exhibit Preparator Name Role Phone HELLEN HUSSEIN Primary Care Provider [phone] REASON FOR VISIT 41/ 3mo Encounters Encounter Location Date Provider Diagnosis [facility] [address] [place] [address] 03/14/2025 HELLEN HUSSEIN PLAN OF TREATMENT No Information
[2025-04-01 14:11] VITALS: BP 128/62; PULSE 88; O2SAT 95; BMI 31.7
--- NOTE | 2025-04-01 14:11 | HO.NEPHOV ---
Vital Signs 04/01/25 14:11 Height 5 ft 3 in Weight 179 lb BMI 31.7 BP 128/62 Blood Pressure Location Lt brachial Position Sitting Pulse 88 Pulse Source Pulse Oximeter Pulse Oximetry (%) 95 Oxygen Delivery Method Room Air Intake Visit Reasons: 4wk f/u w/labs,vm full Ag Equipment Field Service Technician Required: No Accompanied by: Spouse Allergies aspirin Allergy (Unknown, Verified 04/01/25 14:13) asthma Egg Allergy (Unknown, Uncoded 09/25/24 10:56) Unknown Fluarix Allergy (Unknown, Uncoded 09/25/24 10:56) Unknown NSAIDs Allergy (Unknown, Uncoded 09/25/24 10:56) shortness of breath Shellfish Allergy (Unknown, Uncoded 09/25/24 10:56) Unknown Medication List - Last Reconciled 04/01/25 by Zak Kauffman MD apixaban (Eliquis) 5 mg PO BID lisinopril 2.5 mg PO DAILY metoprolol succinate ER 25 mg PO DAILY prednisone 1 mg PO BID rosuvastatin 5 mg PO DAILY torsemide 20 mg PO DAILY vitamin E mixed units PO HPI Comments Details: The patient is an 84-year-old female presenting for evaluation of kidney function and management of chronic conditions. Chronic kidney disease is noted with creatinine levels rising from 0.96 in 2020 to 1.4-1.5, indicating 35% kidney function. Diuretics are used for heart condition management, affecting kidney function. History of heart failure and paroxysmal atrial fibrillation, managed with a pacemaker and aortic valve replacement. Torsemide adjusted from 40 mg to 30 mg, now reduced to 20 mg, controls leg swelling. Blood pressure initially 150/72 mmHg, improved to 122/50 mmHg after rest. Denies shortness of breath, weight stable at 182 pounds. Medical History: - Chronic kidney disease - Heart failure - Paroxysmal atrial fibrillation - Hypertension - Pacemaker placement - Aortic valve replacement Surgical History: - Knee replacement - Hysterectomy - Gallbladder removal - Aortic valve replacement Medications: - Lisinopril 2.5 mg for hypertension - Metoprolol for heart rate control - Prednisone 1 mg twice daily for pain management - Rosuvastatin for cholesterol management - Torsemide for fluid management, currently on 30mg and used to be on 40 mg Social History: - Does not smoke or consume alcohol - Eats breakfast daily, typically eggs and meat, with caution advised on salt intake - Engages in morning rides with sister Diagnostic Results: - Creatinine levels: 0.96 in 2020, increased to 1.4-1.5 recently 04/01/25 - The patient is an 85-year-old female presenting with chronic kidney disease and heart failure. - Kidney function improved from 34% to 37%. - On Torsemide 20 mg daily for heart failure management. - Blood pressure controlled at 128/62 mmHg with Lisinopril 2.5 mg. - Regular follow-ups with primary care and cardiology. [facility] Medical History Cardiac pacemaker in situ Aortic stenosis PAF (paroxysmal atrial fibrillation) HTN (hypertension) Surgical History Status post transcatheter aortic valve replacement (TAVR) using bioprosthesis S/P cardiac cath History of carpal tunnel release Hx of knee surgery Hx of colonoscopy Hx of breast surgery History of tonsillectomy and adenoidectomy Hx of total hysterectomy Hx of cholecystectomy Family History Father CVD (cardiovascular disease) Mother No problems noted. Sister CVD (cardiovascular disease) Social History Housing: House Patient Tobacco Use Status: Never used Tobacco service: No Current occupational status: retired Cognitive needs: No Hearing needs: No Vision needs: Yes Physical Exam Vital Signs: Last Vital Signs Pulse 88 04/01/25 14:11 BP 128/62 04/01/25 14:11 Pulse Ox 95 04/01/25 14:11 Oxygen Delivery Method Room Air 04/01/25 14:11 BMI result Body Mass Index 31.7 Results Reviewed Nephrology Results: Hgb, (12.0-16.0) 12.4 g/dl 02/21/25 WBC, (4.8-10.8) 8.3 X10*3/uL 02/21/25 Plt Count, (160-400) 177 X10*3/uL 02/21/25 Sodium, (135-145) 144 mmol/L 03/26/25 Potassium, (3.3-5.1) 5.0 mmol/L Δ 03/26/25 Chloride, (96-108) 105 mmol/L 03/26/25 Carbon Dioxide, (22-29) 30 mmol/L H 03/26/25 BUN, (9-16) 29 mg/dL H 03/26/25 Creatinine, (0.5-1.4) 1.37 mg/dL 03/26/25 Calcium, (8.4-10.2) 9.6 mg/dL Δ 03/26/25 Urine Protein, (Neg-Trace) Negative mg/dL 02/21/25 Urine Creatinine 30.43 mg/dL 02/21/25 Assessment & Plan Assessment & Plan (1) CKD stage 3b, GFR 30-44 ml/min: Code(s): N18.32 - Chronic kidney disease, stage 3b Category: Medical Plan 1. Chronic Kidney Disease Most likely due to hypertensive nephrosclerosis and age related nephron loss She probably has a component of MICK due to hypoperfsuion frmo high dose diuretics - - Keep torsemide at 20 mg for fluid management. Monitor kidney function with regular blood tests. - Encourage low-salt diet. 2. Heart Failure and Paroxysmal Atrial Fibrillation - Continue heart failure management with pacemaker and medications. - Monitor for fluid overload symptoms. 4. Hypertension BP acceptable - Monitor blood pressure and adjust therapy as needed. Orders: Orders Basic Metabolic Panel 4 Months I10 - Essential (primary) hypertension, N18.32 - Chronic kidney disease, stage 3b Coding Level of Care Code Est Pt Level 4 (10404) Diagnoses CKD stage 3b, GFR 30-44 ml/min N18.32
--- OUTSIDE RECORDS SUMMARY | 2025-04-01 17:47 | XMS_ITS | Patient Health Record ---
Author Organization [facility] Address [address], [place] [id number] Care Team Providers Care Forklift Driver Name Role Phone KEENAN HELLEN Primary Care [...] and structure, unspecified site (M85.80) [facility] Referring Provider First Name HELLEN Referring Provider Last Name KEENAN Referring Provider Speciality Internal M edicine Referred Provider ALEJANDRO BO Referred Provider Specialty Internal Med icine General Notes Colette WOODSON Admin 05/2025 09:57:34 AM > faxed medical referral, notes and bone density scan from 05/29 to [facility] at [phone]>no referral required with pt's insurance plan Referral [...] Vaccine Route Administration Date Status Comme nts Pfizer COVID-19,mRNA, LNP-S, PF, 30mcg/0.3mL dose Unknown 08/07/2020 Administered Influenza, Flublok IM Intramuscular 03/14/2024 Administere d Covid Unknown 09/04/2020 Administered Covid Unknown 03/01/2022 Administered SOCIAL HISTORY Tobacco Use: Social History [...] Problem Essential (primary) hypertension (I10) Active confirmed 79849637 Problem Paroxysmal atrial fibrillation (I48.0) Active confirmed 495240408 Problem Multinodular goiter (E04.2) Active confirmed 139661246 Problem Polymyalgia rheumati ca (M35.3) Active confirmed 70211092 Problem Urge incontinence of urine (N39.41) Active confirmed 03774989 Problem 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) Active confirmed 785073572 Problem Hypercholesterolemia (E78.00) Active confirmed 34684405 Problem Age related osteoporosis, unspecified pathological fracture presence (M81.0) Active confirmed 397435798 Problem Aortic valve stenosi s, etiology of cardiac valve disease unspecified (I35.0) Active confirmed 60138241 Problem 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) Active confirmed 749793505 VITAL SIGNS Blood pressure diastolic 70 mm Hg 12/14/2024 Height 63.00 in 12/14/2024 Blood pressure systolic 124 mm Hg 12/14/2024 Weight 180.8 lbs 12/14/2024 BMI 32.02 kg/m2 12/14/2024 Encounters Encounter Location Date Provider Diagnosis [facility] [address] [place] [address] 05/15/2024 [facility] Other specified disorders of bone density and structure, unspecified site M85.80 and Asymptomatic menopausal state Z78.0 [facility] [address] [place] [address], [place] [address] 05/16/2024 [facility] [address] [place] [address], [place] [address] 08/15/2024 [facility] Essential (primary) hypertension I10 ; Paroxysmal atrial fibrillation I48.0 ; Polymyalgia rheumatica M35.3 ; Mild neurocognitive disorder G31.84 and Age related osteoporosis, unspecified pathological fracture presence M81.[address] [place] [address] 08/15/[address] [place] [address] 12/14/2024 [facility] Paroxysmal atrial fibrillation I48.0 ; Polymyalgia rheumatica M35.3 ; Essential (primary) hypertension I10 and Mild neurocognitive disorder G31.[address] [place] [address] 01/22/[address] [place] [address] 03/14/2025 [facility] ASSESSMENTS Encounter Date Diagnosis Assessment Notes Treatment [...] regard 5. Age-related osteoporosis: Awaiting endocrine appointment. 05/15/2024 Other specified disorders of bone density [...] Start Date Coverage End Date MEDICARE [employer] [address] [place] [phone] [id number] SEBASTIANSHMUEL Fritz Self - patient is the insured 4 [employer] [address] [place] [address] [phone] [id number] 0 SHMUEL SEBASTIAN Self - patient is [...]
--- OUTSIDE RECORDS SUMMARY | 2025-04-01 17:48 | XMS_ITS | Patient Health Record ---
Author Organization [facility] Address [address] [address] Care Team Providers Care Grease Refiner Operator Name Role Phone Baljit Mullen MD Primary Care Provider Janak Wing Unavailable [phone] Allergies Allergen (clinical drug ingredient) Drug/Non Drug Allergy documented on EMR Reaction Allergy Type Onset Date Status aspirin Aspirin Unknown Drug Allergy Active Reason For Referral No Information Medications Medication SIG (Take, Route, Frequency, Duration) Notes Start Date End Date Status Atorvastatin Calcium Active Lisinopril Active vitamin Active Co Enzyme Q-10 Activ e Ewr-Pur-Mwfm-D Activ e Fish Oil Active Osteo Bi-Flex [...] Disorder of joint of ankle and/or foot (199041208) Arthritis - Degenerative (719.97) Active confirmed Problem Hammer toe (443217935) Hammer toe (735.4) Active confirmed Problem Pain in limb (57407850) Pain in Limb (729.5) Active confirmed Plan Of Treatment Pending Test Test Name Order Date X ray : Foot, left 2V 09/18/2014 X ray : Foot, right 2V 09/18/2014 Insurance Providers Payer Name Payer Address Payer Phone Subscriber Number Group Number Insured Name Patient Relationship to Insured Coverage Start Date Coverage End Date Medicare National Govt Svcs Inc [address] [place] [phone] [id number] Mandy Ayala Self - patient is the insured [employer] [address] [place] [address] [id number] Mandy Ayala Self - patient is the insured Medical (General) History Medical History History ICD Code osteoarthritis asthma Broken bones Cancer Gall bladder problems High blood pressure Liver disease Surgical History Surgery Date(Month/Year) rotator cuff tear repair complete hysterectomy perforated gall bladder carpal karlene
--- OUTSIDE RECORDS SUMMARY | 2025-04-01 17:48 | XMS_ITS | Patient Health Record ---
Author Organization [facility] Address [address] [place] [address] Care Team Providers Care General Road Production Manager Name Role Phone Amari Garcia Unavailable [phone] Reason For Referral No Information Plan Of Treatment No Information
--- OUTSIDE RECORDS SUMMARY | 2025-04-01 17:48 | XMS_ITS | Clinical Summary ---
Author Organization [facility] Address [address] [place] [address] Care Team Providers Care Wastewater Treatment Supervisor Name Role Phone Unavailable Primary Care Provider [...]
== END 2025-04-01 14:26 | disposition home or self-care (01) ==
LOC: HO.HKA 14:08
PROVIDERS: PCP Internal Medicine; Visit Provider Internal Medicine Hypertension Specialist
DX: N18.32 Chronic kidney disease, stage 3b (principal)
CPT/HCPCS: 99214

== ENCOUNTER → 2025-04-01 14:07 | Outpatient (BNVA) | payer MEDICARE, SELFPAY ==
[2021-12-15 06:48] VITALS: BP 134/60; BP 138/62; BP 140/66; BMI 31.4
== END ==
PROVIDERS: PCP Internal Medicine; Visit Provider Internal Medicine Hypertension Specialist
DX: I13.0 Hypertensive heart and chronic kidney disease with heart failure and stage 1 through stage 4 chronic kidney disease, or unspecified chronic kidney disease (principal); N18.32 Chronic kidney disease, stage 3b; Z79.01 Long term (current) use of anticoagulants; Z95.0 Presence of cardiac pacemaker; Z95.2 Presence of prosthetic heart valve; I48.0 Paroxysmal atrial fibrillation
CPT/HCPCS: 99212

== ENCOUNTER → 2025-04-05 23:59 | Outpatient (BNV) | payer MEDICARE, SELFPAY ==
[2021-12-15 06:48] VITALS: BP 134/60; BP 138/62; BP 140/66; BMI 31.4
--- NOTE | 2025-04-10 12:28 | MHC.OFFVIS ---
Intake Visit Reasons: Remote device check- Medtronic Allergies aspirin Allergy (Unknown, Verified 04/01/25 14:13) asthma Egg Allergy (Unknown, Uncoded 09/25/24 10:56) Unknown Fluarix Allergy (Unknown, Uncoded 09/25/24 10:56) Unknown NSAIDs Allergy (Unknown, Uncoded 09/25/24 10:56) shortness of breath Shellfish Allergy (Unknown, Uncoded 09/25/24 10:56) Unknown PFSH Medical History Cardiac pacemaker in situ Aortic stenosis PAF (paroxysmal atrial fibrillation) HTN (hypertension) Surgical History Status post transcatheter aortic valve replacement (TAVR) using bioprosthesis S/P cardiac cath History of carpal tunnel release Hx of knee surgery Hx of colonoscopy Hx of breast surgery History of tonsillectomy and adenoidectomy Hx of total hysterectomy Hx of cholecystectomy Family History Father CVD (cardiovascular disease) Mother No problems noted. Sister CVD (cardiovascular disease) Social History Housing: House Patient Tobacco Use Status: Never used Tobacco service: No Current occupational status: retired Cognitive needs: No Hearing needs: No Vision needs: Yes Office Procedures Cardiac Device Check Cardiac Device Check Details: Remote pacemaker report generated 04/05/2025. Pacemaker function is adequate. Patient's ventricularly pacer dependent [id number] Cardiac Device Interrogation, pacemaker Procedure code (CPT) selection complete Assessment & Plan Assessment & Plan (1) Cardiac pacemaker in situ: Comment: Medtronic dual-chamber pacemaker placed, for postprocedure complete heart block Code(s): Z95.0 - Presence of cardiac pacemaker Category: Medical Plan: See above Coding Level of Care Code Procedure Only Diagnoses Cardiac pacemaker in situ Z95.0 CPT Codes Cardiac Device Check - Cardiac Device 12: [id number] Cardiac Device Interrogation, pacemaker ([id number])
== END ==
PROVIDERS: PCP Internal Medicine; Visit Provider Internal Medicine Cardiovascular Disease
DX: I44.2 Atrioventricular block, complete (principal); Z95.0 Presence of cardiac pacemaker
CPT/HCPCS: 93294

== ENCOUNTER 2025-04-24 09:56 | Outpatient (AMB) | payer MEDICARE, SELFPAY ==
[2021-12-15 06:48] VITALS: BP 134/60; BP 138/62; BP 140/66; BMI 31.4
--- OUTSIDE RECORDS SUMMARY | 2024-03-14 08:45 | XMS_ITS ---
Author Organization [facility] Address [address] [place], [place] [id number] Care Team Providers Care Size Roller Operator Name Role Phone HELLEN HUSSEIN Primary Care Provider [phone] ALLERGIES Allergen (clinical drug ingredient) Drug/Non Drug Allergy documented on EMR Reaction Allergy Type Onset Date Status POTATOES ( RAW) (uncoded) Unknown Allergy Active aspirin Aspirin Unknown Drug Allergy Active Eggs or Egg-derived Products Unknown Drug Allergy Active Non-steroidal anti-inflammatory agent (FN) NSAIDs Unknown Drug Allergy Active REASON FOR VISIT 41/ 3mo, received flu vaccine in nurses station MEDICATIONS Medication SIG (Take, Route, Frequency, Duration) Notes Start Date End Date Status Vitamin D3 25 MCG (1000 UT) 1 tab(s) ora lly once a day Active Rosuvastatin Calcium 5 MG 1 tab(s) orall y once a day (at bedtime) Active predniSONE 1 MG pulmonology orally 2 times daily Active Lisinopril 2.5 MG 1 tab(s) orally once a day Active Multivitamin - 1 tablet Orally Once a day for 30 day(s) Active Eliquis 5 MG 1 tab(s) orally 2 ti mes a day Active Torsemide 20 MG 1/2 tab Orally twice a day for 90 days Active Metoprolol Succinate ER 25 MG 1 tab(s) orally once a day Active SOCIAL HISTORY Tobacco Use: Social History Observation Description Date Details (start date - stop date) Never Smoker NA - NA Sex Assigned At : Social History Observation Description Sex Assigned At Unknown Smoking Question Answer Notes Are you a: never smoker VITAL SIGNS Height 63.00 in 03/14/2024 Weight 179 lbs 03/14/2024 Blood pressure systolic 122 mm Hg 03/14/20 24 Blood pressure diastolic 74 mm Hg 024 BMI 31.70 kg/m2 03/14/2024 Encounters Encounter Location Date Provider Diagnosis [facility] [address] [place] [address] 03/14/2024 HELLEN HUSSEIN Paroxysmal atrial fibrillation I48.0 ; Polymyalgia rheumatica M35.3 ; Mild neurocognitive disorder G31.84 ; Hypercholesterolemia E78.00 ; Essential (primary) hypertension I10 ; Other specified disorders of bone density and structure, unspecified site M85.80 ; Asymptomatic menopausal state Z78.0 ; Breast cancer screening by mammogram Z12.31 and Encounter for general adult medical examination with abnormal findings Z00.01 ASSESSMENTS Encounter Date Diagnosis Assessment Notes Treatment Notes Treatment Clinical Notes Section Notes 03/14/2024 Paroxysmal atrial fibrillation (ICD-10 - I48.0) 1. Paroxysmal atrial fibrillation: No obvious recurrence. Stable on anticoagulation. Will follow with cardiology 2. Polymyalgia rheumatica: Asymptomatic on low-dose steroids. Will continue 3. Mild neurocognitive disorder: She and feel she continues to struggle with short-term memory some but is stable since her last visit. She did not feel well on previous medication trials 4. Hyperlipidemia: We will update profile on rosuvastatin 5. Hypertension: Stable on present regimen. No changes made today 6. Osteopenia: We will update bone density 7. Routine healthcare maintenance: Will update mammogram. Bone density as above. She will update fasting blood work. She had her flu shot today and will get her COVID shot as well as the RSV vaccination 03/14/2024 Polymyalgia rheumati ca (ICD-10 - M35.3) 1. Paroxysmal atrial fibrillation: No obvious recurrence. Stable on anticoagulation. Will follow with cardiology 2. Polymyalgia rheumatica: Asymptomatic on low-dose steroids. Will continue 3. Mild neurocognitive disorder: She and feel she continues to struggle with short-term memory some but is stable since her last visit. She did not feel well on previous medication trials 4. Hyperlipidemia: We will update profile on rosuvastatin 5. Hypertension: Stable on present regimen. No changes made today 6. Osteopenia: We will update bone density 7. Routine healthcare maintenance: Will update mammogram. Bone density as above. She will update fasting blood work. She had her flu shot today and will get her COVID shot as well as the RSV vaccination 03/14/2024 Mild neurocognitive disorder (ICD-10 - G31.84) 1. Paroxysmal atrial fibrillation: No obvious recurrence. Stable on anticoagulation. Will follow with cardiology 2. Polymyalgia rheumatica: Asymptomatic on low-dose steroids. Will continue 3. Mild neurocognitive disorder: She and feel she continues to struggle with short-term memory some but is stable since her last visit. She did not feel well on previous medication trials 4. Hyperlipidemia: We will update profile on rosuvastatin 5. Hypertension: Stable on present regimen. No changes made today 6. Osteopenia: We will update bone density 7. Routine healthcare maintenance: Will update mammogram. Bone density as above. She will update fasting blood work. She had her flu shot today and will get her COVID shot as well as the RSV vaccination 03/14/2024 Hypercholesterolemia (ICD-10 - E78.00) 1. Paroxysmal atrial fibrillation: No obvious recurrence. Stable on anticoagulation. Will follow with cardiology 2. Polymyalgia rheumatica: Asymptomatic on low-dose steroids. Will continue 3. Mild neurocognitive disorder: She and feel she continues to struggle with short-term memory some but is stable since her last visit. She did not feel well on previous medication trials 4. Hyperlipidemia: We will update profile on rosuvastatin 5. Hypertension: Stable on present regimen. No changes made today 6. Osteopenia: We will update bone density 7. Routine healthcare maintenance: Will update mammogram. Bone density as above. She will update fasting blood work. She had her flu shot today and will get her COVID shot as well as the RSV vaccination 03/14/2024 Essential (primary) hypertension (ICD-10 - I10) 1. Paroxysmal atrial fibrillation: No obvious recurrence. Stable on anticoagulation. Will follow with cardiology 2. Polymyalgia rheumatica: Asymptomatic on low-dose steroids. Will continue 3. Mild neurocognitive disorder: She and feel she continues to struggle with short-term memory some but is stable since her last visit. She did not feel well on previous medication trials 4. Hyperlipidemia: We will update profile on rosuvastatin 5. Hypertension: Stable on present regimen. No changes made today 6. Osteopenia: We will update bone density 7. Routine healthcare maintenance: Will update mammogram. Bone density as above. She will update fasting blood work. She had her flu shot today and will get her COVID shot as well as the RSV vaccination 03/14/2024 Other specified disorders of bone density and structure, unspecified site (ICD-10 - M85.80) 1. Paroxysmal atrial fibrillation: No obvious recurrence. Stable on anticoagulation. Will follow with cardiology 2. Polymyalgia rheumatica: Asymptomatic on low-dose steroids. Will continue 3. Mild neurocognitive disorder: She and feel she continues to struggle with short-term memory some but is stable since her last visit. She did not feel well on previous medication trials 4. Hyperlipidemia: We will update profile on rosuvastatin 5. Hypertension: Stable on present regimen. No changes made today 6. Osteopenia: We will update bone density 7. Routine healthcare maintenance: Will update mammogram. Bone density as above. She will update fasting blood work. She had her flu shot today and will get her COVID shot as well as the RSV vaccination 03/14/2024 Asymptomatic menopau rell state (ICD-10 - Z78.0) 1. Paroxysmal atrial fibrillation: No obvious recurrence. Stable on anticoagulation. Will follow with cardiology 2. Polymyalgia rheumatica: Asymptomatic on low-dose steroids. Will continue 3. Mild neurocognitive disorder: She and feel she continues to struggle with short-term memory some but is stable since her last visit. She did not feel well on previous medication trials 4. Hyperlipidemia: We will update profile on rosuvastatin 5. Hypertension: Stable on present regimen. No changes made today 6. Osteopenia: We will update bone density 7. Routine healthcare maintenance: Will update mammogram. Bone density as above. She will update fasting blood work. She had her flu shot today and will get her COVID shot as well as the RSV vaccination 03/14/2024 Breast cancer screen ing by mammogram (ICD-10 - Z12.31) 1. Paroxysmal atrial fibrillation: No obvious recurrence. Stable on anticoagulation. Will follow with cardiology 2. Polymyalgia rheumatica: Asymptomatic on low-dose steroids. Will continue 3. Mild neurocognitive disorder: She and feel she continues to struggle with short-term memory some but is stable since her last visit. She did not feel well on previous medication trials 4. Hyperlipidemia: We will update profile on rosuvastatin 5. Hypertension: Stable on present regimen. No changes made today 6. Osteopenia: We will update bone density 7. Routine healthcare maintenance: Will update mammogram. Bone density as above. She will update fasting blood work. She had her flu shot today and will get her COVID shot as well as the RSV vaccination 03/14/2024 Encounter for michelle l adult medical examination with abnormal findings (ICD-10 - Z00.01) 1. Paroxysmal atrial fibrillation: No obvious recurrence. Stable on anticoagulation. Will follow with cardiology 2. Polymyalgia rheumatica: Asymptomatic on low-dose steroids. Will continue 3. Mild neurocognitive disorder: She and feel she continues to struggle with short-term memory some but is stable since her last visit. She did not feel well on previous medication trials 4. Hyperlipidemia: We will update profile on rosuvastatin 5. Hypertension: Stable on present regimen. No changes made today 6. Osteopenia: We will update bone density 7. Routine healthcare maintenance: Will update mammogram. Bone density as above. She will update fasting blood work. She had her flu shot today and will get her COVID shot as well as the RSV vaccination PLAN OF TREATMENT Medication Medication Name Sig Start Date Stop Date Notes Rosuvastatin Calcium 5 MG 1 tab(s) orall y once a day (at bedtime) predniSONE 1 MG pulmonology orally 2 times daily Lisinopril 2.5 MG 1 tab(s) orally once a day Eliquis 5 MG 1 tab(s) orally 2 ti mes a day Metoprolol Succinate ER 25 MG 1 tab(s) orally once a day Next Appt Details Follow Up: 3 Months, Reason: Progress Notes * Examination Category Sub-Category Detail Notes Category Not es General Examination HEENT: PERRLA, EOMI bilatera lly, nose clear Neck: supple, no lymphaden opathy, no thyromegaly Heart: RSR, normal S1S2 Lungs: clear to auscultatio n Abdomen: soft, non tender/non distended, no rebound tenderness, no guarding or rigidity Extremities: no edema General Appearance no apparent distress , pleasant Skin: normal, no rash Neuro alert and oriented x 3, gait normal Oral cavity: no lesions Peripheral pulses: Bilateral radial pre sent, Bilateral posterior tibial present, BilateralCarotids present No Bruits, Back: no CVA tenderness, s traight leg raise normal, , no spinal tenderness Lymphatics No nodes in neck Psych: affect normal History and Physical Notes * HPI (History of Present Illness) Category Sub-Category Detail Notes Category Not es General Patient is feel ing generally well. She does note some fatigue but otherwise has no other specific complaints today.
--- OUTSIDE RECORDS SUMMARY | 2024-03-22 04:19 | XMS_ITS ---
Author Organization [facility] Address [address] [place], [place] [id number] Care Team Providers Care Ranch Rider Name Role Phone HELLEN HUSSEIN Primary Care Provider [phone] REASON FOR VISIT code alternate for BMD Encounters Encounter Location Date Provider Diagnosis [facility] [address] [place] [address] 03/22/2024 HELLEN HUSSEIN Other specified disorders of bone density and structure, unspecified site M85.80 and Asymptomatic menopausal state Z78.0 ASSESSMENTS Encounter Date Diagnosis Assessment Notes Treatment Notes Treatment Clinical Notes Section Notes 03/22/2024 Other specified disorders of bone density and structure, unspecified site (ICD-10 - M85.80) 03/22/2024 Asymptomatic menopausal state (ICD-10 - Z78.0) PLAN OF TREATMENT Pending Test Test Name Order Date Bone Density 2 site DEXA 03/22/2024
--- OUTSIDE RECORDS SUMMARY | 2024-03-27 07:22 | XMS_ITS ---
Author Organization [facility] Address [address] [place], [place] [phone] Care Team Providers Care Promotions Executive Producer Name Role Phone HELLEN HUSSEIN Primary Care Provider REASON FOR VISIT (2) new dx for bone density Encounters Encounter Location Date Provider Diagnosis [facility] [address] [place] [address] 03/27/2024 HELLEN HUSSEIN Other specified disorders of bone density and structure, unspecified site M85.80 and Asymptomatic menopausal state Z78.0 ASSESSMENTS Encounter Date Diagnosis Assessment Notes Treatment Notes Treatment Clinical Notes Section Notes 03/27/2024 Other specified disorders of bone density and structure, unspecified site (ICD-10 - M85.80) 03/27/2024 Asymptomatic menopausal state (ICD-10 - Z78.0) PLAN OF TREATMENT No Information
--- OUTSIDE RECORDS SUMMARY | 2024-05-15 15:46 | XMS_ITS ---
Author Organization [facility] Address [address] [place], [place] [id number] Care Team Providers Care Inhalation Therapist Name Role Phone HELLEN HUSSEIN Primary Care Provider REASON FOR REFERRAL Reason 08/15/24 w appt New patient appt Diagnosis 1 Other specified diso rders of bone density and structure, unspecified site (M85.80) Referral Organization [facility] Referring Provider First Name HELLEN Referring Provider Last Name KEENAN Referring Provider Speciality Internal M edicine Referred Provider ALEJANDRO BO Referred Provider Specialty Internal Med icine General Notes Colette WOODSON Admin 05/2025 09:57:34 AM > faxed medical referral, notes and bone density scan from 05/29 to [facility] at [phone]>no referral required with pt's insurance plan Referral Priority Routine REASON FOR VISIT (2) Bone density Encounters Encounter Location Date Provider Diagnosis [facility] [address] [place] [phone] 05/15/2024 HELLEN KEENAN Other specified disorders of bone density and structure, unspecified site M85.80 and Asymptomatic menopausal state Z78.0 ASSESSMENTS Encounter Date Diagnosis Assessment Notes Treatment Notes Treatment Clinical Notes Section Notes 05/15/2024 Other specified disorders of bone density and structure, unspecified site (ICD-10 - M85.80) 05/15/2024 Asymptomatic menopausal state (ICD-10 - Z78.0) PLAN OF TREATMENT Referrals Referral Date Details 08/15/24 w appt New patient appt, LITA BO Consultation Request Notes Referral Date Referring Provider Referred Provider Not jackie 05/16/2024 HELLEN HUSSEIN KIMBERLY 05/30 w appt New patient appt
--- OUTSIDE RECORDS SUMMARY | 2024-05-16 09:20 | XMS_ITS ---
Author Organization [facility] Address [address] [place], [place] [id number] Care Team Providers Care Senior It Security Analyst Name Role Phone HELLEN HUSSEIN Primary Care Provider [phone] REASON FOR VISIT left shoulder, upper arm pain Encounters Encounter Location Date Provider Diagnosis [facility] [address] [place] [address] 05/16/2024 HELLEN HUSSEIN PLAN OF TREATMENT No Information
--- OUTSIDE RECORDS SUMMARY | 2024-08-15 04:15 | XMS_ITS ---
Author Organization [facility] Address [address] [place], [place] [id number] Care Team Providers Care Lead Custodian Name Role Phone HELLEN HUSSEIN Primary Care Provider ALLERGIES Allergen (clinical drug ingredient) Drug/Non Drug Allergy documented on EMR Reaction Allergy Type Onset Date Status POTATOES ( RAW) (uncoded) Unknown Allergy Active aspirin Aspirin Unknown Drug Allergy Active Eggs or Egg-derived Products Unknown Drug Allergy Active Non-steroidal anti-inflammatory agent (FN) NSAIDs Unknown Drug Allergy Active REASON FOR VISIT 5mo, covid scree negative, had flu vacc MEDICATIONS Medication SIG (Take, Route, Frequency, Duration) Notes Start Date End Date Status Multivitamin - 1 tablet Orally Once a day for 30 day(s) Active Metoprolol Succinate ER 25 MG 1 tab(s) orally once a day Active predniSONE 1 MG pulmonology orally 2 times daily Active Vitamin D3 25 MCG (1000 UT) 1 tab(s) ora lly once a day Active Torsemide 20 MG 1 tablet on the AM, 1/2 tab in the PM Orally twice a day for 90 days Active Rosuvastatin Calcium 5 MG 1 tab(s) orall y once a day (at bedtime) Active Eliquis 5 MG 1 tab(s) orally 2 ti mes a day Active Lisinopril 2.5 MG 1 tab(s) orally once a day Active SOCIAL HISTORY Tobacco Use: Social History Observation Description Date Details (start date - stop date) Never Smoker NA - NA Sex Assigned At : Social History Observation Description Sex Assigned At Unknown Smoking Question Answer Notes Are you a: never smoker VITAL SIGNS Height 63.00 in 08/15/2024 Weight 182.8 lbs 08/15/2024 Blood pressure systolic 126 mm Hg 08/16/19 25 Blood pressure diastolic 76 mm Hg 025 BMI 32.38 kg/m2 08/15/2024 Encounters Encounter Location Date Provider Diagnosis [facility] [address] [place] [address] 08/15/2024 HELLEN MENDEZFORD Essential (primary) hypertension I10 ; Paroxysmal atrial fibrillation I48.0 ; Polymyalgia rheumatica M35.3 ; Mild neurocognitive disorder G31.84 and Age related osteoporosis, unspecified pathological fracture presence M81.0 ASSESSMENTS Encounter Date Diagnosis Assessment Notes Treatment Notes Treatment Clinical Notes Section Notes 08/15/2024 Essential (primary) hypertension (ICD-10 - I10) 1. Hypertension: Well-controlled on present therapy. No changes made today 2. Paroxysmal atrial fibrillation: No obvious recurrence. No abnormal bleeding on Eliquis. Will continue same and follow-up 3. Polymyalgia rheumatica: Stable on low-dose prednisone. Will continue 4. Mild neurocognitive disorder: Did not tolerate medication trials. She and feel she is stable in this regard 5. Age-related osteoporosis: Awaiting endocrine appointment. 08/15/2024 Paroxysmal atrial fibrillation (ICD-10 - I48.0) 1. Hypertension: Well-controlled on present therapy. No changes made today 2. Paroxysmal atrial fibrillation: No obvious recurrence. No abnormal bleeding on Eliquis. Will continue same and follow-up 3. Polymyalgia rheumatica: Stable on low-dose prednisone. Will continue 4. Mild neurocognitive disorder: Did not tolerate medication trials. She and feel she is stable in this regard 5. Age-related osteoporosis: Awaiting endocrine appointment. 08/15/2024 Polymyalgia rheumatica (ICD-10 - M35.3) 1. Hypertension: Well-controlled on present therapy. No changes made today 2. Paroxysmal atrial fibrillation: No obvious recurrence. No abnormal bleeding on Eliquis. Will continue same and follow-up 3. Polymyalgia rheumatica: Stable on low-dose prednisone. Will continue 4. Mild neurocognitive disorder: Did not tolerate medication trials. She and feel she is stable in this regard 5. Age-related osteoporosis: Awaiting endocrine appointment. 08/15/2024 Mild neurocognitive disorder (ICD-10 - G31.84) 1. Hypertension: Well-controlled on present therapy. No changes made today 2. Paroxysmal atrial fibrillation: No obvious recurrence. No abnormal bleeding on Eliquis. Will continue same and follow-up 3. Polymyalgia rheumatica: Stable on low-dose prednisone. Will continue 4. Mild neurocognitive disorder: Did not tolerate medication trials. She and feel she is stable in this regard 5. Age-related osteoporosis: Awaiting endocrine appointment. 08/15/2024 Age related osteoporosis, unspecified pathological fracture presence (ICD-10 - M81.0) 1. Hypertension: Well-controlled on present therapy. No changes made today 2. Paroxysmal atrial fibrillation: No obvious recurrence. No abnormal bleeding on Eliquis. Will continue same and follow-up 3. Polymyalgia rheumatica: Stable on low-dose prednisone. Will continue 4. Mild neurocognitive disorder: Did not tolerate medication trials. She and feel she is stable in this regard 5. Age-related osteoporosis: Awaiting endocrine appointment. PLAN OF TREATMENT Medication Medication Name Sig Start Date Stop Date Notes Metoprolol Succinate ER 25 MG 1 tab(s) orally once a day predniSONE 1 MG pulmonology orally 2 times daily Eliquis 5 MG 1 tab(s) orally 2 times a day Lisinopril 2.5 MG 1 tab(s) orally once a day Progress Notes * Examination Category Sub-Category Detail Notes Category Not es General Examination Heart: RSR, normal S1S2 Lungs: clear to auscultatio n Extremities: no edema General Appearance no apparent distress , pleasant Psych: alert, oriented X 3 Other normal affect History and Physical Notes * HPI (History of Present Illness) Category Sub-Category Detail Notes Category Not es General Patient reports feeling generally well. She has no complaints today. She denies chest pain or palpitations. She has not had any bleeding on Eliquis. She reports her right knee is occasionally sore but not bothering her at present. She denies chest pain palpitations or shortness of breath. feels her memory is stable
--- OUTSIDE RECORDS SUMMARY | 2024-08-15 04:23 | XMS_ITS ---
Author Organization [facility] Address [address] [place], [place] [id number] Care Team Providers Care Face Hardener Name Role Phone HELLEN HUSSEIN Primary Care Provider REASON FOR VISIT Bone density Encounters Encounter Location Date Provider Diagnosis [facility] [address] [place] [address] 08/15/2024 HELLEN HUSSEIN PLAN OF TREATMENT No Information
--- OUTSIDE RECORDS SUMMARY | 2024-12-14 04:15 | XMS_ITS ---
Author Organization [facility] Address [address], [place] [id number] Care Team Providers Care Supervisor Engraving Name Role Phone HELLEN HUSSEIN Primary Care Provider [phone] ALLERGIES Allergen (clinical drug ingredient) Drug/Non Drug Allergy documented on EMR Reaction Allergy Type Onset Date Status POTATOES ( RAW) (uncoded) Unknown Allergy Active aspirin Aspirin Unknown Drug Allergy Active Eggs or Egg-derived Products Unknown Drug Allergy Active Non-steroidal anti-inflammatory agent (FN) NSAIDs Unknown Drug Allergy Active REASON FOR VISIT 4mo MEDICATIONS Medication SIG (Take, Route, Frequency, Duration) Notes Start Date End Date Status predniSONE 1 MG pulmonology orally 2 times daily Active Eliquis 5 MG 1 tab(s) orally 2 ti mes a day Active Lisinopril 2.5 MG 1 tab(s) orally once a day Active Metoprolol Succinate ER 25 MG 1 tab(s) orally once a day Active Torsemide 20 MG 1/2 tablet Orally Tw ice a day for 90 days Active Multivitamin - 1 tablet Orally Once a day for 30 day(s) Active Vitamin D3 25 MCG (1000 UT) 1 tab(s) ora lly once a day Active Rosuvastatin Calcium 5 MG 1 tab(s) orall y once a day (at bedtime) Active SOCIAL HISTORY Tobacco Use: Social History Observation Description Date Details (start date - stop date) Never Smoker NA - NA Sex Assigned At : Social History Observation Description Sex Assigned At Unknown Smoking Question Answer Notes Are you a: never smoker VITAL SIGNS Height 63.00 in 12/14/2024 Weight 180.8 lbs 12/14/2024 Blood pressure systolic 124 mm Hg 12/15/19 25 Blood pressure diastolic 70 mm Hg 025 BMI 32.02 kg/m2 12/14/2024 Encounters Encounter Location Date Provider Diagnosis [facility] [address] [place] [address] 12/14/2024 HELLEN HUSSEIN Paroxysmal atrial fibrillation I48.0 ; Polymyalgia rheumatica M35.3 ; Essential (primary) hypertension I10 and Mild neurocognitive disorder G31.84 ASSESSMENTS Encounter Date Diagnosis Assessment Notes Treatment Notes Treatment Clinical Notes Section Notes 12/14/2024 Paroxysmal atrial fibrillation (ICD-10 - I48.0) 1. Paroxysmal atrial fibrillation: Stable on medical therapy. Continue current anticoagulation 2. Polymyalgia rheumatica: Stable on very low-dose prednisone. She had return of symptoms with stopping the small dose so risk-benefit fernando appears safer to continue at present 3. Hypertension: Well-controlled on present therapy. No changes made today 4. Mild neurocognitive disorder: Stable with good support from her . Will continue to follow. She unfortunately did not tolerate Aricept or Namenda 12/14/2024 Polymyalgia rheumatica (ICD-10 - M35.3) 1. Paroxysmal atrial fibrillation: Stable on medical therapy. Continue current anticoagulation 2. Polymyalgia rheumatica: Stable on very low-dose prednisone. She had return of symptoms with stopping the small dose so risk-benefit fernando appears safer to continue at present 3. Hypertension: Well-controlled on present therapy. No changes made today 4. Mild neurocognitive disorder: Stable with good support from her . Will continue to follow. She unfortunately did not tolerate Aricept or Namenda 12/14/2024 Essential (primary) hypertension (ICD-10 - I10) 1. Paroxysmal atrial fibrillation: Stable on medical therapy. Continue current anticoagulation 2. Polymyalgia rheumatica: Stable on very low-dose prednisone. She had return of symptoms with stopping the small dose so risk-benefit fernando appears safer to continue at present 3. Hypertension: Well-controlled on present therapy. No changes made today 4. Mild neurocognitive disorder: Stable with good support from her . Will continue to follow. She unfortunately did not tolerate Aricept or Namenda 12/14/2024 Mild neurocognitive disorder (ICD-10 - G31.84) 1. Paroxysmal atrial fibrillation: Stable on medical therapy. Continue current anticoagulation 2. Polymyalgia rheumatica: Stable on very low-dose prednisone. She had return of symptoms with stopping the small dose so risk-benefit fernando appears safer to continue at present 3. Hypertension: Well-controlled on present therapy. No changes made today 4. Mild neurocognitive disorder: Stable with good support from her . Will continue to follow. She unfortunately did not tolerate Aricept or Namenda PLAN OF TREATMENT Medication Medication Name Sig Start Date Stop Date Notes predniSONE 1 MG pulmonology orally 2 times daily Eliquis 5 MG 1 tab(s) orally 2 times a day Lisinopril 2.5 MG 1 tab(s) orally once a day Metoprolol Succinate ER 25 MG [...] Detail Notes Category Not es General Patient present s for follow-up with . She has been feeling well overall. She has not had any recent chest pain or palpitations. She has not had any abnormal bleeding on Eliquis. Joint symptoms are stable on current low-dose prednisone. Short-term memory is a struggle at times but she feels these issues have been stable. She did not tolerate medication for this and she and her would like to continue monitoring at this time
--- OUTSIDE RECORDS SUMMARY | 2025-01-22 10:46 | XMS_ITS ---
Author Organization [facility] Address [address] [place], [place] [id number] Care Team Providers Care Roller Skate Assembler Name Role Phone HELLEN HUSSEIN Primary Care Provider REASON FOR VISIT Leaving Practice Encounters Encounter Location Date Provider Diagnosis [facility] [address] [phone] 01/22/2025 HELLEN HUSSEIN PLAN OF TREATMENT No Information
--- OUTSIDE RECORDS SUMMARY | 2025-03-14 06:15 | XMS_ITS ---
Author Organization [facility] Address [address] [place], [place] [id number] Care Team Providers Care Pipe Organ Installer Name Role Phone HELLEN HUSSEIN Primary Care Provider [phone] REASON FOR VISIT 41/ 3mo Encounters Encounter Location Date Provider Diagnosis [facility] [address] [place] [address] 03/14/2025 HELLEN HUSSEIN PLAN OF TREATMENT No Information
--- NOTE | 2025-04-24 09:57 | A.OFFPC_ITS ---
Vital Signs 04/24/25 09:58 Height 5 ft 3 in Weight 181 lb BMI 32.1 BP 122/62 Blood Pressure Location Rt brachial Position Sitting Pulse 85 Pulse Source Pulse Oximeter Pulse Oximetry (%) 96 Intake Visit Reasons: 3m follow up Allergies aspirin Allergy (Unknown, Verified 04/24/25 09:58) asthma Egg Allergy (Unknown, Uncoded 09/25/24 10:56) Unknown Fluarix Allergy (Unknown, Uncoded 09/25/24 10:56) Unknown NSAIDs Allergy (Unknown, Uncoded 09/25/24 10:56) shortness of breath Shellfish Allergy (Unknown, Uncoded 09/25/24 10:56) Unknown Medication List - Last Reconciled 04/24/25 by Silvia Alva MD apixaban (Eliquis) 5 mg PO BID lisinopril 2.5 mg PO DAILY metoprolol succinate ER 25 mg PO DAILY prednisone 1 mg PO BID rosuvastatin 5 mg PO DAILY torsemide 20 mg PO DAILY vitamin E mixed units PO Tobacco use date assessed: 09/25/24 Fall risk assessment: No Falls in past year Last assessed Fall Risk: 04/24/25 Dental Screening Dental Screen Date: 09/25/24 HPI HPI Comments History of Present Illness Details History of Present Illness The patient is an 85-year-old female presenting for a routine follow-up and ear cleaning. Chronic Kidney Disease: - The patient is followed by a nephrolog ist, Dr. Villa. - Her torsemide dose was recently lowere d by the specialist. - Laboratory results from March 26 s how improvement in creatinine from 1.46 to 1.37 mg/dL, with kidney functions now considered stable and normal. - Electrolytes were also noted to be nor mal on recent labs. Hypertension: - The patient's blood pressure is well-c ontrolled, with a recent reading of 122/62 mmHg. Cerumen Impaction: - The patient has a history of requiring routine ear cleaning. Medical History: - Chronic Kidney Disease - Hypertension - History of cerumen impaction Diagnostic Results: - Labs (02/2023): No anemia. - Labs (03/26/2023): Electrolytes are no rmal; creatinine has improved to 1.37 mg/dL from a previous 1.46 mg/dL. [facility] Medical History Cardiac pacemaker in situ Aortic stenosis PAF (paroxysmal atrial fibrillation) HTN (hypertension) Surgical History Status post transcatheter aortic valve replacement (TAVR) using bioprosthesis S/P cardiac cath History of carpal tunnel release Hx of knee surgery Hx of colonoscopy Hx of breast surgery History of tonsillectomy and adenoidectomy Hx of total hysterectomy Hx of cholecystectomy Family History Father CVD (cardiovascular disease) Mother No problems noted. Sister CVD (cardiovascular disease) Social History Housing: House Patient Tobacco Use Status: Never used Tobacco service: No Current occupational status: retired Cognitive needs: No Hearing needs: No Vision needs: Yes Questionnaire Thrive Questionnaire Date Thrive assessed: 09/25/24 I am a: Patient What is your living situation today?: I have a steady place to live Within the past 12 months, did the food you bought not last and you didn't have the money to get more?: Never true Within the past 12 months, did you worry whether your food would run out before you got money to buy more?: Never true Do you have trouble paying for medicines?: No Do you have trouble getting transportation to medical appointments?: No Do you have trouble paying your heating and electricity bill?: No Do you have trouble taking care of your child, family member or friend?: No Do you have trouble with day-to-day activities such as bathing, preparing meals, shopping, managing finances, etc.?: No Are you currently unemployed and looking for a job?: No Are you interested in more education?: No Please select the resources that you would like help with: None Currently or been in a relationship where the following occur: No concerns reported THRIVE Score: 0 STANLEY-7 AMB Questionnaire STANLEY-7 Date STANLEY - 7 assessed: 01/22/25 Source: Developed by Drs. Amari Burdick, Felipa Sims, Jose Bejarano and colleagues, with an educational fahad from [employer]. Review of Systems Narrative Review of Systems - General: No fever no chills - Neurological: No headaches no dizziness - Ear nose throat: No sore throat no hearing difficulty no ear pain - Cardiovascular: No syncope, no chest pain, no palpitations - Gastrointestinal: No nausea vomiting or diarrhea Physical exam (Primary Care) Vital Signs: Last Vital Signs Pulse 85 04/24/25 09:58 BP 122/62 04/24/25 09:58 Pulse Ox 96 04/24/25 09:58 BMI result Body Mass Index 32.1 Tobacco/Smoking Status: Tobacco use Status Tobacco use date assessed 09/25/24 04/24/25 09:58 Patient Tobacco Use Status Never used Tobacco 04/24/25 09:58 Thrive Assessment: Date of Thrive Assessment Date Thrive assessed 09/25/24 04/24/25 09:58 Currently or been in a relationship where the following occur: No concerns reported Narrative Physical Exam General: No acute distress HEENT: Rt ear filled with cerumen Neck: Supple Respiratory system: Able to talk in full sentences, no audible wheeze Cardiovascular: S1-S2 Gastrointestinal: No pain Extremities: No new findings SQL DEVELOPER DBA: Alert awake oriented x3 motor intact Skin: Normal turgor Office Procedures Cerumen Removal From which ear canal was the cerumen removed: right Removal: irrigation Notes: patient tolerated procedure well, no complications and ear canal clear [id number] Irrigation/Lavage Coding Level of Care Code Est Pt Level 3 (76339) Diagnoses Impacted cerumen, right ear H61.21 Primary hypertension I10 Hypertension type: primary hypertension CKD stage 3b, GFR 30-44 ml/min N18.32 CPT Codes Office Procedure - CPT: 33194-Led Irrigation/Lavage ([id number]) Assessment & Plan Assessment & Plan (1) Impacted cerumen, right ear: Code(s): H61.21 - Impacted cerumen, right ear Category: Medical (2) HTN (hypertension): Code(s): I10 - Essential (primary) hypertension Category: Medical Qualifiers: Hypertension type: primary hypertension Qualified Code(s): I10 - Essential (primary) hypertension (3) CKD stage 3b, GFR 30-44 ml/min: Code(s): N18.32 - Chronic kidney disease, stage 3b Category: Medical Plan Problem List - Cerumen impaction Rt ear - Chronic Kidney Disease - Hypertension Plan - Perform ear cleaning during the visit. with good result - The patient will continue to be followed by her superintendent circus, Dr. Pereyra for CKD - Schedule a follow-up appointment in approximately four months.
[2025-04-24 09:58] VITALS: BP 122/62; PULSE 85; O2SAT 96; BMI 32.1
--- OUTSIDE RECORDS SUMMARY | 2025-04-24 18:36 | XMS_ITS | Patient Health Record ---
Author Organization [facility] Address [address] [place], [place] [id number] Care Team Providers Care Peoplesoft Taleo Manager Name Role Phone KEENAN HELLEN Primary Care [...] and structure, unspecified site (M85.80) Referral Organization [facility] Referring Provider First Name HELLEN Referring Provider Last Name KEENAN Referring Provider Speciality Internal M edicine Referred Provider ALEJANDRO BO Referred Provider Specialty Internal Med icine General Notes Colette WOODSON Admin 05/2025 09:57:34 AM > faxed medical referral, notes and bone density scan from 05/29 to [facility] at [phone]>no referral required with pt's insurance plan Referral [...] Problem Essential (primary) hypertension (I10) Active confirmed 50657439 Problem Paroxysmal atrial fibrillation (I48.0) Active confirmed 104681584 Problem Multinodular goiter (E04.2) Active confirmed 332031992 Problem Polymyalgia rheumati ca (M35.3) Active confirmed 25097774 Problem Urge incontinence of urine (N39.41) Active confirmed 07771698 Problem 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) Active confirmed 938860007 Problem Hypercholesterolemia (E78.00) Active confirmed 87722853 Problem Age related osteoporosis, unspecified pathological fracture presence (M81.0) Active confirmed 952503162 Problem Aortic valve stenosi s, etiology of cardiac valve disease unspecified (I35.0) Active confirmed 51444798 Problem 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) Active confirmed 481996618 VITAL SIGNS Blood pressure diastolic 70 mm Hg 12/14/2024 Height 63.00 in 12/14/2024 Blood pressure systolic 124 mm Hg 12/14/2024 Weight 180.8 lbs 12/14/2024 BMI 32.02 kg/m2 12/14/2024 Encounters Encounter Location Date Provider Diagnosis [facility] [address] [place] [address] 05/15/2024 [facility] Other specified disorders of bone density and structure, unspecified site M85.80 and Asymptomatic menopausal state Z78.0 [facility] [address] [place] [address], [place] [address] 05/16/2024 [facility] [address] [place] [address], [place] [address] 08/15/2024 [facility] Essential (primary) hypertension I10 ; Paroxysmal atrial fibrillation I48.0 ; Polymyalgia rheumatica M35.3 ; Mild neurocognitive disorder G31.84 and Age related osteoporosis, unspecified pathological fracture presence M81.[address] [place] [address] 08/15/[address] [place] [address] 12/14/2024 [facility] Paroxysmal atrial fibrillation I48.0 ; Polymyalgia rheumatica M35.3 ; Essential (primary) hypertension I10 and Mild neurocognitive disorder G31.[address] [place] [address] 01/22/[address] [place] [address] 03/14/2025 [facility] ASSESSMENTS Encounter Date Diagnosis Assessment Notes Treatment [...] Start Date Coverage End Date MEDICARE [employer] [address] [place] [phone] [id number] SEBASTIANSHMUEL Fritz Self - patient is the insured 4 [employer] [address] [place] [address] [phone] [id number] 0 SHMUEL SEBASTIAN Self - patient is [...]
--- OUTSIDE RECORDS SUMMARY | 2025-04-24 18:37 | XMS_ITS | Patient Health Record ---
Author Organization [facility] Address [address] [place] [address] Care Team Providers Care Systems Admin Name Role Phone Amari Garcia Unavailable [phone] Reason For Referral No Information Plan Of Treatment No Information
--- OUTSIDE RECORDS SUMMARY | 2025-04-24 18:37 | XMS_ITS | Patient Health Record ---
Author Organization [facility] Address [address] [facility] [place] [address] Care Team Providers Care Special Forces Specialist Name Role Phone Baljit Mullen MD Primary Care Provider Janak Wing Unavailable [phone] Allergies Allergen (clinical drug ingredient) Drug/Non Drug Allergy documented on EMR Reaction Allergy Type Onset Date Status aspirin Aspirin Unknown Drug Allergy Active Reason For Referral No Information Medications Medication SIG (Take, Route, Frequency, Duration) Notes Start Date End Date Status Atorvastatin Calcium Active Lisinopril Active vitamin Active Co Enzyme Q-10 Activ e Ito-Ufm-Nuyj-D Activ e Fish Oil Active Osteo Bi-Flex [...] Disorder of joint of ankle and/or foot (419054389) Arthritis - Degenerative (719.97) Active confirmed Problem Hammer toe (876390778) Hammer toe (735.4) Active confirmed Problem Pain in limb (69098705) Pain in Limb (729.5) Active confirmed Plan Of Treatment Pending Test Test Name Order Date X ray : Foot, left 2V 09/18/2014 X ray : Foot, right 2V 09/18/2014 Insurance Providers Payer Name Payer Address Payer Phone Subscriber Number Group Number Insured Name Patient Relationship to Insured Coverage Start Date Coverage End Date Medicare National Govt Sv[employer] Inc [address] [place] [phone] [id number] Mandy Ayala Self - patient is the insured [employer] [address] [place] [address] [phone] [id number] Madny Ayala Self - patient is the insured Medical (General) History Medical History History ICD Code osteoarthritis asthma Broken bones Cancer Gall bladder problems High blood pressure Liver disease Surgical History Surgery Date(Month/Year) rotator cuff tear repair complete hysterectomy perforated gall bladder carpal karlene
--- OUTSIDE RECORDS SUMMARY | 2025-04-24 18:37 | XMS_ITS | Clinical Summary ---
Author Organization [facility] Address [address] [place] [address] Care Team Providers Care Communications Superintendent Name Role Phone Unavailable Primary Care Provider [...] Name Comments Heart disease Father Other Mother [place]'s disea se Other Sister PVD Relation Name [...]
== END 2025-04-24 10:43 | disposition home or self-care (01) ==
LOC: HO.HMCC 09:56
PROVIDERS: PCP Internal Medicine; Visit Provider Internal Medicine
DX: I12.9 Hypertensive chronic kidney disease with stage 1 through stage 4 chronic kidney disease, or unspecified chronic kidney disease (principal); N18.32 Chronic kidney disease, stage 3b; H61.21 Impacted cerumen, right ear

== ENCOUNTER → 2025-04-24 09:56 | Outpatient (BNVA) | payer MEDICARE, SELFPAY ==
[2021-12-15 06:48] VITALS: BP 134/60; BP 138/62; BP 140/66; BMI 31.4
== END ==
PROVIDERS: PCP Internal Medicine; Visit Provider Internal Medicine
DX: H61.21 Impacted cerumen, right ear (principal); I10 Essential (primary) hypertension; N18.32 Chronic kidney disease, stage 3b
CPT/HCPCS: 69209; 99212

== ENCOUNTER → 2025-04-25 12:40 | Outpatient (BNV) | payer MEDICARE, SELFPAY ==
[2021-12-15 06:48] VITALS: BP 134/60; BP 138/62; BP 140/66; BMI 31.4
== END ==
PROVIDERS: PCP Internal Medicine
DX: I44.2 Atrioventricular block, complete (principal); Z95.0 Presence of cardiac pacemaker
CPT/HCPCS: 93294